=== PATIENT | male | born 1935 | race Caucasian/White ===

== ENCOUNTER → 2016-10-25 | Outpatient (CLI) | payer BC ==
[~2016-10-25] MED LIST: ADVIN10/60 INH; AMLO-110 PO; ASPCH81X PO; ATEN50TA8 PO; ATOR-26 PO; B-CO1CAP3 PO; CHOL1000 PO; CILO100T PO; CINN1CAP2 PO; COEN1CAP7 PO; CYAN10005 PO; DLN100 PO; DOCU100C PO; GABA-112 PO; HYG25 PO; INSU100I2 SC; INSU1INJ23 SC; KPP/1000 PO; LEVE750T PO; LOSA1TAB38 PO; MOME6000 NAE; MULT-506 PO; NRV5 PO; NTRGSL/4 SL; OMEG10007 PO; OXYC-57 PO; PREDPOW63; RANI150C4 PO; TAMS0.4C38 PO; ZNTT/150 PO
[2016-10-25 10:39] LABS: BLOOD UREA NITROGEN 21 mg/dl (7-18)
== END | disposition home or self-care (01) ==
LOC: C.LABBC 07:28
PROVIDERS: ATTEND Psychiatry & Neurology Neurology
DX: Z00.00 Encounter for general adult medical examination without abnormal findings (principal); G40.909 Epilepsy, unspecified, not intractable, without status epilepticus; Z51.81 Encounter for therapeutic drug level monitoring

== ENCOUNTER → 2016-10-30 | Outpatient (CLI) | payer BC ==
[~2016-10-30] MED LIST changes: +GADAVIST IV PRN
--- NOTE | 2016-10-30 09:09 | DIAGNOSTIC IMAGING REPORT ---
Brain MRI WITH AND WITHOUT CONTRAST HISTORY: HX RESECTION OF MENINGIOMA TECHNIQUE: Multiplanar multisequence MRI of the brain was performed both before and after the intravenous administration of contrast. COMPARISON STUDY: Brain MRI 05/20/2016. FINDINGS: There are no areas of restricted diffusion to suggest acute infarction. The midline structures are intact. No hematoma or midline shift. Right frontal parietal craniotomy with underlying encephalomalacia and increased T2 signal is not significantly changed. The T2 signal favors clearance is from the postoperative change. 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 No change in the 15 x 4 mm enhancing extra-axial focus within the dura of the right frontal lobe. Apparent slight increase in size measured on this study is due to differences in measuring technique. There is also stable 7 mm extra-axial enhancing focus within the right high convexity on coronal image 8 located at the craniotomy defect. This could be due to postoperative change or a small residual enhancing lesion. Near-complete opacification of the paranasal sinuses with polypoid mucosal thickening and small fluid levels. The mastoid air cells are clear. The major vascular flow-voids at the skull base are well-maintained. IMPRESSION: 1. Overall, no significant change compared to the prior study. 2. Stable nodular foci of enhancement within the right frontal dura as described above. Again, this could represent postoperative change versus small residual meningiomas. Continued follow-up recommended. 3. Pansinusitis, unchanged. Electronically signed by: Tyrone White M.D. 10/30/2016 9:07 AM Dictated Date/Time: 10/30/2016 8:47 AM
== END | disposition home or self-care (01) ==
LOC: C.MRIBC 07:47
PROVIDERS: ATTEND Psychiatry & Neurology Neurology
DX: D32.9 Benign neoplasm of meninges, unspecified (principal); Z98.890 Other specified postprocedural states; J32.4 Chronic pansinusitis

== ENCOUNTER → 2016-11-05 | Outpatient (CLI) | payer BC ==
[~2016-11-05] MED LIST changes: -GADAVIST IV PRN
--- NOTE | 2016-11-05 14:59 | DIAGNOSTIC IMAGING REPORT ---
Venous Doppler right leg RIGHT VENOUS DOPP LOWER EXT UNILAT CLINICAL HISTORY: M79.604 Right leg [id number] Right pain. Edema. TECHNIQUE: Venous Doppler COMPARISON STUDY: None FINDINGS: Normal study IMPRESSION: Normal study Electronically signed by: Doroteo Iqbal M.D. 11/05/2016 2:58 PM Dictated Date/Time: 11/05/2016 2:57 PM
== END | disposition home or self-care (01) ==
LOC: C.ULTRBC 14:22
PROVIDERS: ATTEND Physician Assistant
DX: M79.604 Pain in right leg (principal)

== ENCOUNTER → 2016-12-05 | Outpatient (CLI) | payer BC ==
[~2016-12-05] MED LIST changes: -CILO100T PO; -KPP/1000 PO; -MULT-506 PO; +OPTIRAY 320 IV PRN; -RANI150C4 PO
--- NOTE | 2016-12-05 14:37 | DIAGNOSTIC IMAGING REPORT ---
[facility]IO AA [facility] CLINICAL HISTORY: 81 years of age, Male, Claudication of lower extremity Peripheral artery disease. TECHNIQUE: Multidetector CT of the abdomen and pelvis and bilateral lower extremities was performed after the administration of intravenous contrast. 3-D volumetric and maximum intensity projection (MIP) images were subsequently reconstructed for review. IV contrast: 91 mL of Optiray 320. COMPARISON: None. CT DOSE: The estimated cumulative dose (DLP [mGy-cm]) is 1082.26 mGy.cm. FINDINGS: Christmas [employer] Grader topogram: Brachytherapy seeds noted in the prostate. Lung bases: Dependent groundglass opacities, possibly atelectasis. Normal heart size. No pericardial or pleural effusion. Abdomen and pelvis: Liver: Normal morphology. Conventional hepatic arterial anatomy. Biliary: Mild extrahepatic biliary ductal prominence within normal range for the patient's age. Normal gallbladder. Spleen: Normal. Pancreas: Normal. Adrenal glands: Nodular thickening of the bilateral adrenal glands. Kidneys and ureters: Exophytic cyst in the left kidney, likely simple. No hydronephrosis. Gastrointestinal tract: Diverticulosis of the sigmoid colon. Normal appendix. No bowel obstruction. Peritoneal cavity: No free fluid or intraperitoneal gas. Bladder: Normal. Pelvic organs: Radiotherapy seeds noted throughout the prostate. Vasculature: Severe atherosclerosis of the normal caliber abdominal aorta. Patent origins of the celiac and superior mesenteric arteries. Origin of the right renal artery demonstrates significant stenosis secondary to calcified and noncalcified atherosclerotic plaque. Nonsignificant stenosis of the origin of the left renal artery. Atherosclerosis of the iliac arteries to a greater degree on the right. Focal narrowing of the right common femoral artery with a minimal diameter of 4 mm in comparison to the normal distal diameter of 8 mm. Lymph nodes: No enlarged lymph nodes in the abdomen or pelvis. Abdominal wall: Normal. Musculoskeletal: Multiple degenerative change of the thoracolumbar spine. Bilateral lower extremities: Right: Right superficial femoral artery demonstrates multifocal areas of stenosis secondary to calcified and noncalcified atherosclerotic plaque narrowing the lumen by at most 50%. Right profunda femoris and popliteal arteries remain patent. Poor opacification of the right posterior tibial artery in the mid to distal calf, although more distal opacification of the vessel is apparent. Dorsalis pedis and common and lateral plantar arteries patent. Left: Distal left superficial femoral artery demonstrates calcified and noncalcified atherosclerotic plaque as does the popliteal artery. The most severe point of stenosis is at the level of the abductor hiatus, with a minimum luminal diameter of 3 mm in comparison to normal distal diameter of 5 mm. Anterior and posterior tibial arteries as well as the peroneal artery are patent. Poor opacification of the left dorsalis pedis. Proximal aspects of the common and lateral plantar arteries patent. IMPRESSION: 1. Severe atherosclerotic disease throughout the visualized arterial system, notably involving the origin of the right renal artery. No acute vessel occlusion. 50% narrowing of the right common femoral artery with additional multifocal sites of atherosclerotic disease in the right lower extremity as described above. Left lower extremity with focal stenosis at the abductor hiatus and poor opacification of the left dorsalis pedis. Electronically signed by: Cristobal Patino 12/05/2016 2:36 PM Dictated Date/Time: 12/05/2016 2:00 PM
== END | disposition home or self-care (01) ==
LOC: C.CTS 13:09
PROVIDERS: ATTEND Physician Assistant
DX: I73.9 Peripheral vascular disease, unspecified (principal); I77.9 Disorder of arteries and arterioles, unspecified; I70.91 Generalized atherosclerosis

== ENCOUNTER → 2016-12-23 | Outpatient (CLI) | payer BC ==
[~2016-12-23] MED LIST changes: -OPTIRAY 320 IV PRN
--- NOTE | 2016-12-23 12:48 | DIAGNOSTIC IMAGING REPORT ---
SINUSES WITH BRAIN LAB HISTORY: 81 years-old Male SINUSITIS COMPARISON: Brain MRI 10/30/2016 TECHNIQUE: Multiple axial CT images of the paranasal sinuses were obtained without IV contrast. A dose lowering technique was used consistent with the principals of MONICA. FINDINGS: There are post surgical changes of the right frontal calvarium, only partially imaged. Focus of polypoid mucosal thickening of the central right frontal sinus is again seen, 1.1 x 2.1 x 2.4 cm in AP, transverse and craniocaudal dimensions. This appears similar from comparison MRI of the brain 10/30/2016. Bubbly secretions are present in the bilateral frontal sinuses with air-fluid leveling. There is overall moderate to severe disease within the frontal sinuses. The right maxillary sinus is nearly completely opacified with mucoperiosteal thickening. There is evidence of prior maxillary antrectomy bilaterally. Moderate mucosal thickening is seen throughout the left maxillary sinus with mucoperiosteal thickening. There is moderate to severe ethmoid mucosal disease with severe right and moderate left sphenoid sinus disease. There is patency with mucosal thickening of the bilateral sphenoethmoidal recesses. The left frontoethmoidal recess is patent with mucosal thickening and the right frontal ethmoidal recess is opacified. Left maxillary ostiomeatal unit is patent. There is mucosal thickening with patency of the right maxillary ostiomeatal unit. The nasopharynx appears patent. Mastoid air cells and middle ear cavities are clear. There are degenerative changes of the imaged upper cervical spine. No facial bone fracture or dislocation is identified. Soft tissues are unremarkable. Evidence of prior bilateral cataract repair. There is a large area of encephalomalacia within the right frontal lobe. There is moderate to severe background atrophy. IMPRESSION: 1. Severe paranasal sinus disease as above with evidence of prior bilateral maxillary antrectomy. 2. Polypoid mucosal thickening in the right frontal sinus measuring up to 2.4 cm in seen, unchanged from MRI dated 10/30/2016. 3. 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 The above report was generated using voice recognition software. It may contain grammatical, syntax or spelling errors. Electronically signed by: Noel Lucas M.D. 12/23/2016 12:46 PM Dictated Date/Time: 12/23/2016 12:39 PM
== END | disposition home or self-care (01) ==
LOC: C.CTS 09:26
PROVIDERS: ATTEND Otolaryngology
DX: J32.9 Chronic sinusitis, unspecified (principal)

== ENCOUNTER → 2016-12-27 | Day surgery (SDC) | payer BC ==
--- NOTE | 2016-12-23 10:54 | PAT Medication Instructions ---
Service Date Dec 23, 2016. Current Home Medication List Amlodipine (Norvasc), 5 MG PO BID Aspirin (Aspirin Chewable), 81 MG PO QAM Atenolol (Tenormin), 50 MG PO QAM Atorvastatin (Lipitor), 80 MG PO HS Chlorthalidone (Chlorthalidone), 1 TAB PO QAM Cholecalciferol (Vitamin D3), 2,000 INTER.UNIT PO QDL Cinnamon (Cinnamon), 1,000 MG PO HS Coenzyme Q10 (Ubidecarenone) (Coq10), 1 TAB PO late afternoon Cyanocobalamin (Vitamin B-12), 1,000 MCG PO QAM Docusate Sodium (Stool Softener), 1 TAB PO HS Fish Oil ([place]-3), 1 CAP PO HS Fluticasone Prop/Salmeterol (Advair Diskus 100/50 60 Dose), 1 PUFF INH BID Gabapentin (Neurontin), 100 MG PO HS Insulin Isophane (Human) (Humulin N Kwikpen), 10-14 UNITS SC HS Insulin Lispro (Human) (Humalog Kwikpen), 3-5 UNITS SC AC Levetiracetam (Keppra), 750 MG PO BID Losartan Potassium (Cozaar), 100 MG PO QAM Mometasone Furoate (Nasal) (Mometasone Furoate), 2 SPRAY ANKITA DAILY Nitroglycerin (Nitrostat), 1 TAB SL UD Phenytoin Sodium (Dilantin), 100 MG PO BID Ranitidine (Zantac), Unknown Dose PO PRN PRN for HEARTBURN [Prednisone], Unknown Dose Medication Instructions For Your Scheduled Surgery [Prednisone], Unknown Dose (to be completed 12/24/16) - Check with surgeon/marble finisher for instructions: Aspirin (Aspirin Chewable), 81 MG PO QAM - Hold the following medications starting 12/23/16: Cinnamon (Cinnamon), 1,000 MG PO HS Coenzyme Q10 (Ubidecarenone) (Coq10), 1 TAB PO late afternoon Fish Oil ([place]-3), 1 CAP PO HS - Hold the following medications the morning of surgery: Ranitidine (Zantac), Unknown Dose PO PRN PRN for HEARTBURN Losartan Potassium (Cozaar), 100 MG PO QAM Insulin Lispro (Human) (Humalog Kwikpen), 3-5 UNITS SC AC Cyanocobalamin (Vitamin B-12), 1,000 MCG PO QAM Cholecalciferol (Vitamin D3), 2,000 INTER.UNIT PO QDL Chlorthalidone (Chlorthalidone), 1 TAB PO QAM - Take the following medications the morning of surgery with a sip of water: Phenytoin Sodium (Dilantin), 100 MG PO BID Mometasone Furoate (Nasal) (Mometasone Furoate), 2 SPRAY ANKITA DAILY Nitroglycerin (Nitrostat), 1 TAB SL UD Atenolol (Tenormin), 50 MG PO QAM Levetiracetam (Keppra), 750 MG PO BID Fluticasone Prop/Salmeterol (Advair Diskus 100/50 60 Dose), 1 PUFF INH BID Amlodipine (Norvasc), 5 MG PO BID - Take the following medications as scheduled the night before surgery: Ranitidine (Zantac), Unknown Dose PO PRN PRN for HEARTBURN Phenytoin Sodium (Dilantin), 100 MG PO BID Mometasone Furoate (Nasal) (Mometasone Furoate), 2 SPRAY ANKITA DAILY Nitroglycerin (Nitrostat), 1 TAB SL UD Levetiracetam (Keppra), 750 MG PO BID Insulin Lispro (Human) (Humalog Kwikpen), 3-5 UNITS SC AC Insulin Isophane (Human) (Humulin N Kwikpen), 10-14 UNITS SC HS Fluticasone Prop/Salmeterol (Advair Diskus 100/50 60 Dose), 1 PUFF INH BID Gabapentin (Neurontin), 100 MG PO HS Docusate Sodium (Stool Softener), 1 TAB PO HS Atorvastatin (Lipitor), 80 MG PO HS Amlodipine (Norvasc), 5 MG PO BID If you have any questions please call us at [phone] or [phone] or [phone]
--- NOTE | 2016-12-23 11:40 | DIAGNOSTIC IMAGING REPORT ---
CHEST PREADMISSION(PA/LAT) CLINICAL HISTORY: 81 years-old Male presenting with PREOP. TECHNIQUE: PA and lateral views of the chest were obtained. COMPARISON: 02/28/2016. FINDINGS: Atherosclerosis of the aortic arch. Cardiac silhouette normal. Interval development of bandlike opacities at the lung bases, right greater than left. No pleural effusion or pneumothorax. Osseous structures and upper abdomen normal. IMPRESSION: 1. Bibasilar bandlike opacities likely atelectasis. Electronically signed by: Cristobal Patino M.D. 12/23/2016 11:38 AM Dictated Date/Time: 12/23/2016 11:37 AM
[2016-12-23 11:57] LABS: BASO % 0.3 %; BASO ABS # 0.03 K/uL (0-0.2); COMPLETE YES; EOS % 0.9 %; HEMATOCRIT 44.3 % (42-52); IG% 0.7 %; LYMPH % 11.3 %; LYMPH ABS # 1.15 K/uL (1.2-3.4); MEAN CELL VOLUME 94.1 fL (80-100); MEAN CORPUSCULAR HEMOGLOBIN 33.1 pg (25-34); MEAN CORPUSCULAR HGB CONC 35.2 g/dl (32-36); MEAN PLATELET VOLUME 11.4 fL (7.4-10.4); MONO % 10.8 %; PLATELET COUNT 231 K/uL (130-400); RED BLOOD COUNT 4.71 M/uL (4.7-6.1); WHITE BLOOD COUNT 10.19 K/uL (4.8-10.8)
[2016-12-23 13:34] LABS: BLOOD UREA NITROGEN 22 mg/dl (7-18); BUN/CREATININE RATIO 18.7 (10-20); CALCIUM 9.3 mg/dl (8.5-10.1); CARBON DIOXIDE 31 mmol/L (21-32); CHLORIDE 100 mmol/L (98-107); GLUCOSE 80 mg/dl (70-99); POTASSIUM 3.9 mmol/L (3.5-5.1); SODIUM 138 mmol/L (136-145)
[2016-12-26 12:30] VITALS: BMI 26.0
--- NOTE | 2016-12-26 14:47 | History and Physical ---
History & Physical Date Dec 26, 2016. Chief Complaint Sinusitis and polyposis History of Present Illness The patient is a 81 year old male with complaints of chronic sinusitis and nasal polyposis status post surgery at [facility] developed recurrent polyps Past Medical/Surgical History Medical Problems: (1) Bronchitis (2) CAD (coronary artery disease) (3) Diabetes (4) Hyperlipidemia (5) Left arm pain (6) Meningioma (7) Prostate cancer (8) Seizure Surgical Problems: (1) H/O brain surgery (2) H/O hernia repair (3) H/O sinus surgery (4) History of prostate surgery Additional History Hepatic Disease: No Endocrine Disorder: Yes Kidney Disease: No Hypertension: Yes Heart Disease: Yes Bleeding Tendencies: No Infectious Diseases: No Allergies Coded Allergies: Levofloxacin (Verified Allergy, Intermediate, OTHER, 12/26/16) PT HAD DIFFICULTY WITH TENDONS, AMBULATORY DYSFUNCTION. Lisinopril (Verified Adverse Reaction, Intermediate, UPSET STOMACH AND DIZZINESS, 12/26/16) Home Medications Scheduled Amlodipine (Norvasc), 5 MG PO BID Aspirin (Aspirin Chewable), 81 MG PO QAM Atenolol (Tenormin), 50 MG PO QAM Atorvastatin (Lipitor), 80 MG PO HS Chlorthalidone (Chlorthalidone), 1 TAB PO QAM Cholecalciferol (Vitamin D3), 2,000 INTER.UNIT PO QDL Cinnamon (Cinnamon), 1,000 MG PO HS Coenzyme Q10 (Ubidecarenone) (Coq10), 1 TAB PO late afternoon Cyanocobalamin (Vitamin B-12), 1,000 MCG PO QAM Docusate Sodium (Stool Softener), 1 TAB PO HS Fish Oil ([place]-3), 1 CAP PO HS Fluticasone Prop/Salmeterol (Advair Diskus 100/50 60 Dose), 1 PUFF INH BID Gabapentin (Neurontin), 100 MG PO HS Insulin Isophane (Human) (Humulin N Kwikpen), 10-14 UNITS SC HS Insulin Lispro (Human) (Humalog Kwikpen), 3-5 UNITS SC AC Levetiracetam (Keppra), 750 MG PO BID Losartan Potassium (Cozaar), 100 MG PO QAM Mometasone Furoate (Nasal) (Mometasone Furoate), 2 SPRAY ANKITA DAILY Nitroglycerin (Nitrostat), 1 TAB SL UD Phenytoin Sodium (Dilantin), 100 MG PO BID Scheduled PRN Ranitidine (Zantac), Unknown Dose PO PRN PRN for HEARTBURN Miscellaneous Medications [Prednisone], Unknown Dose Physical Examination Skin: warm/dry, no rash Eyes: normal inspection, EOMI, sclerae normal ENT: normal ENT inspection, pharynx normal Head: normocephalic, atraumatic Neck: supple, no adenopathy, trachea midline Respiratory/Chest: lungs clear, normal breath sounds, no respiratory distress Cardiovascular: regular rate, rhythm, no edema, no murmur Abdomen / GI: normal bowel sounds, non tender Back: normal inspection Extremities: normal inspection, normal range of motion Neurologic/Psych: no motor/sensory deficits, alert, normal reflexes, oriented x 3 Diagnosis Chronic sinusitis and polyposis Plan of Treatment Endoscopic sinus surgery
[~2016-12-27] VITALS: Ht 170.2 cm; Wt 75.7 kg
[~2016-12-27] MED LIST changes: +ATROPINE SULFATE 0.1 MG/ML 5ML SYR IV PRN; -B-CO1CAP3 PO; +BACITRACIN OINT 15 GM TUBE ONE; +CEFAZOLIN 2000 MG/60 ML D5W IV SCH; +CISATRACURIUM BESYLATE IV SOLN 2 MG/ML 10 ML VIAL ONE; +EpHEDrine SULFATE 50MG/5ML SYR ONE; +EpHEDrine SULFATE INJ 50 MG/ML AMP IV PRN; +EpINEphrine INJ 1MG/ML AMP 1 MG/ML AMP ONE; +FENTANYL CITRATE INJ 50 MCG/1 ML 2 ML VIAL IV PRN; +FENTANYL CITRATE INJ 50 MCG/1 ML 2 ML VIAL ONE; +FLUMAZENIL 0.1 MG/1 ML 10 ML VIAL IV PRN; +GELATIN SPONGE 12-7MM ONE; +GLYCOPYRROLATE INJ 0.2 MG/ML VIAL ONE; +HYDROmorphone INJ 2 MG/ML SYR/VIAL ONE; +KETAMINE HCL INJ 50 MG/ML 10 ML VIAL ONE; +LABETALOL HCL IV 5 MG/ML 20ML IV PRN; +LACTATED RINGER'S 1000ML 1,000 ML IV SCH; +LARYING-O-JET KIT (LTA) ONE; +LIDO 2%/EPINEPHRINE 1:100000 20 ML VIAL INFIL ONE; +LIDOCAINE 4% INH SOLN 4 ML BTL ONE; +LIDOCAINE HCL 2% 2 ML VIAL (20MG/ML) ONE; +NALOXONE HCL 0.4 MG/1 ML VIAL/CARP IV PRN; +NEOSTIGMINE METHYLSULFATE 5 MG/5 ML SYR ONE; -NRV5 PO; +ONDANSETRON INJ 2 MG/ML 2 ML VIAL IV PRN; +OXYCODONE/ACETAMINOPHEN 5-325 TAB PO PRN; +PHENYLEPHRINE 100MCG/ML 5ML SYR ONE; +PROMETHAZINE HCL INJ 12.5 MG in SODIUM CHLORIDE 0.9% 50ML 50 ML IV PRN; +PROPOFOL IV EMULSION 10 MG/ML 20 ML VIAL IV ONE; +SODIUM CHLORIDE 0.9% 1000ML 1,000 ML IV SCH; +SODIUM CHLORIDE 0.9% INJ 10 ML VIAL ONE; -TAMS0.4C38 PO; +TRIAMCINOLONE ACET 40 MG/ML VIAL ONE
[2016-12-27 07:29] VITALS: BP 170/80; PULSE 65; TEMP 36.4; Ht 170.2 cm; Wt 75.7 kg
[2016-12-27 07:35] VITALS: O2SAT 95
--- NOTE | 2016-12-27 08:10 | History & Physical Bridge Note ---
H&P Re-Evaluation Bridge Note: I have examined the patient, reviewed the History & Physical and in the interval since the performance of the History & Physical I have noted the following changes of clinical significance: No changes noted
--- NOTE | 2016-12-27 09:36 | [facility] Operative Report ---
Operative Report Operative Date Dec 27, 2016. Pre-Operative Diagnosis Chronic sinusitis and polyposis Post-Operative Diagnosis Chronic sinusitis and polyposis Procedure(s) Performed Bilateral Endoscopic Sinus Surgery Surgeon Dr. 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 endotracheal Complication(s) None Disposition Recovery Room / PACU Indications 81-year-old gentleman with recurrent and chronic sinusitis with significant polyposis with history of 4 previous sinus procedures at [facility] Description of Procedure The patient was brought to the operating room and placed in the supine position. He was prepped with Betadine paint and draped in the usual sterile manner. The brain lab device was calibrated and used for the entire procedure. The nose was decongested using cottonoids with a solution of 4 mL of 4% Xylocaine with 1 mL of epinephrine. Injection of 2% Xylocaine with 1 100,000 strength epinephrine was also used. The left nasal frontal duct was cannulated with the guidewire with [employer] computer guidance and dilated using the 6 mm balloon. The guidewire was left in place as a marker as catheter was withdrawn. Frontal sinusotomy was performed by using the shaver couple with the BrainLab device and polypoid mucosa and adhesions blocking the left nasal frontal duct. Polyps filled the anterior and posterior ethmoid cavities these were all removed using the shaver couple with the BrainLab device. The skull base and lamina papyracea were delineated and all the polyps were removed. The sphenoid ostia was from the sphenoidotomy opening this had to be connected using the shaver. The left maxillary sinus had a missed ostia syndrome. The natural ostia was found using the seeker and then connected to the antrostomy opening using the seeker to break the adhesion and then shaving up the scar tissue and mucosa between the natural ostia and the antrostomy opening. The right frontal sinusotomy sphenoidotomy maxillary sinus antrostomy and total ethmoidectomy were performed in a similar manner. Propel stents were placed with 2 mini stent in the nasal frontal ducts and to regular stents in the ethmoid cavity. The patient tolerated procedure well was taken recovery area in satisfactory condition I attest to the content of the Intraoperative Record and any orders documented therein. Any exceptions are noted below.
--- NOTE | 2016-12-27 09:38 | Discharge Instructions-SurgCtr ---
Discharge Instructions Date of Service Dec 27, 2016. Visit Reason for Visit: Chronic Sinusitis Discharge Discharge Diagnosis / Problem: same Discharge Goals Goal(s): Improve disease control Activity Recommendations Activity Limitations: resume your previous activity Anesthesia . Post Anesthesia Instructions: If you have had General Anesthesia or IV Sedation: * Do not drive today. * Resume driving when surgeon permits. * Do not make important decisions or sign legal documents today. * Call surgeon for: 1. Temperature elevations greater than 101 degrees F. 2. Uncontrollable pain. 3. Excessive bleeding. 4. Persistent nausea and vomiting. 5. Medication intolerance (nausea, vomiting or rash). * For nausea and vomiting use only clear liquids such as: tea, soda, bouillon until nausea subsides, then gradually increase diet as tolerated. * If you have any concerns or questions, call your surgeon's office. If physician is unavailable and it is an emergency, call 911 or go to the nearest emergency room. . Instructions / Follow-Up Instructions / Follow-Up ACTIVITY RECOMMENDATIONS: * Being up and around is good, but no strenuous activity, heavy lifting or physical exertion for one week. * Keep your head elevated 30 degrees when lying down or sleeping. * Do not blow your nose for 48 hours, sniff back instead. * Avoid hot showers. OVER THE COUNTER MEDICATIONS: * You may use Tylenol * Avoid aspirin or aspirin containing products, e.g. as they may increase bleeding. SPECIAL CARE INSTRUCTIONS: * Expect to have bloody drainage from your nose and/or down your throat for one to three days. Change drip pad as needed. * Begin irrigating your nose with saline solution today, at least six to ten times per day and sniff back to help remove old clots or crust. * You may experience nasal and facial congestion, pain and pressure, this is normal. * Please call with any significant and/or progressive pain, redness, swelling around the eyes, visual changes, fever of 101.5 degrees F, active bleeding or any problems or concerns. * If active bleeding occurs, spray the nose three times at one minute intervals with Afrin spray and call or cell phone: . If unable to reach the doctor, go to the nearest Emergency Department. Special Diet: * Avoid extremely hot fluids. FOLLOW UP VISIT: Follow-up Visit with Dr. Couch If not already scheduled, please call to schedule. Diet Recommendations Home Diet: no limitations Procedures Procedures Performed: Bilateral Endoscopic Sinus Surgery Pending Studies Studies pending at discharge: no Medical Emergencies . Who to Call and When: Medical Emergencies: If at any time you feel your situation is an emergency, please call 911 immediately. . Non-Emergent Contact Non-Emergency issues call your: Primary Care Provider . . "Provider Documentation" section prepared by Sury Desir PA Drug Monitoring Program Search Results: no issues identified
--- NOTE | 2016-12-27 10:14 | Anesthesiology Progress Note ---
Anesthesia Post Op Note Date & Time Dec 27, 2016 at 10:14 Vital Signs Pain Intensity: 0 Vital Signs Past 12 Hours Date Time Temp Pulse Resp B/P (MAP) Pulse Ox O2 Delivery O2 Flow Rate FiO2 12/27/16 09:54 58 15 12/27/16 09:54 59 15 99 12/27/16 09:51 156/75 12/27/16 09:49 59 18 100 12/27/16 09:49 60 18 12/27/16 09:46 148/79 12/27/16 09:44 62 18 12/27/16 09:44 62 18 100 12/27/16 09:41 166/67 12/27/16 09:40 162/95 12/27/16 09:39 70 99 12/27/16 09:39 36.5 69 16 162/95 100 Mask 10 12/27/16 09:39 70 12/27/16 07:35 95 Room Air 12/27/16 07:29 36.4 65 18 170/80 Notes Mental Status: alert / awake / arousable, participated in evaluation Pt Amnestic to Procedure: Yes Nausea / Vomiting: adequately controlled Pain: adequately controlled Airway Patency, RR, SpO2: stable & adequate BP & HR: stable & adequate Hydration State: stable & adequate Anesthetic Complications: no major complications apparent
[2016-12-27 10:43] VITALS: BP 150/63; PULSE 64; TEMP 36.6; O2SAT 96
[2016-12-27 10:55] VITALS: BP 131/62; PULSE 63; TEMP 36.7; O2SAT 93
[2016-12-27 11:25] VITALS: BP 135/68; PULSE 62; TEMP 36.9; O2SAT 93
== END | disposition home or self-care (01) ==
LOC: C.ACU 06:49
PROVIDERS: ATTEND Otolaryngology
DX: J32.9 Chronic sinusitis, unspecified (principal); J33.8 Other polyp of sinus; I25.10 Atherosclerotic heart disease of native coronary artery without angina pectoris; E78.5 Hyperlipidemia, unspecified; E11.9 Type 2 diabetes mellitus without complications; Z79.82 Long term (current) use of aspirin; Z79.4 Long term (current) use of insulin; Z79.899 Other long term (current) drug therapy

== ENCOUNTER → 2017-01-13 | Outpatient (CLI) | payer BC ==
[~2017-01-13] MED LIST changes: -ATROPINE SULFATE 0.1 MG/ML 5ML SYR IV PRN; -BACITRACIN OINT 15 GM TUBE ONE; -CEFAZOLIN 2000 MG/60 ML D5W IV SCH; -CISATRACURIUM BESYLATE IV SOLN 2 MG/ML 10 ML VIAL ONE; -EpHEDrine SULFATE 50MG/5ML SYR ONE; -EpHEDrine SULFATE INJ 50 MG/ML AMP IV PRN; -EpINEphrine INJ 1MG/ML AMP 1 MG/ML AMP ONE; -FENTANYL CITRATE INJ 50 MCG/1 ML 2 ML VIAL IV PRN; -FENTANYL CITRATE INJ 50 MCG/1 ML 2 ML VIAL ONE; -FLUMAZENIL 0.1 MG/1 ML 10 ML VIAL IV PRN; -GELATIN SPONGE 12-7MM ONE; -GLYCOPYRROLATE INJ 0.2 MG/ML VIAL ONE; -HYDROmorphone INJ 2 MG/ML SYR/VIAL ONE; -KETAMINE HCL INJ 50 MG/ML 10 ML VIAL ONE; -LABETALOL HCL IV 5 MG/ML 20ML IV PRN; -LACTATED RINGER'S 1000ML 1,000 ML IV SCH; -LARYING-O-JET KIT (LTA) ONE; -LIDO 2%/EPINEPHRINE 1:100000 20 ML VIAL INFIL ONE; -LIDOCAINE 4% INH SOLN 4 ML BTL ONE; -LIDOCAINE HCL 2% 2 ML VIAL (20MG/ML) ONE; -NALOXONE HCL 0.4 MG/1 ML VIAL/CARP IV PRN; -NEOSTIGMINE METHYLSULFATE 5 MG/5 ML SYR ONE; -OMEG10007 PO; -ONDANSETRON INJ 2 MG/ML 2 ML VIAL IV PRN; -OXYCODONE/ACETAMINOPHEN 5-325 TAB PO PRN; -PHENYLEPHRINE 100MCG/ML 5ML SYR ONE; -PROMETHAZINE HCL INJ 12.5 MG in SODIUM CHLORIDE 0.9% 50ML 50 ML IV PRN; -PROPOFOL IV EMULSION 10 MG/ML 20 ML VIAL IV ONE; -SODIUM CHLORIDE 0.9% 1000ML 1,000 ML IV SCH; -SODIUM CHLORIDE 0.9% INJ 10 ML VIAL ONE; -TRIAMCINOLONE ACET 40 MG/ML VIAL ONE
[2017-01-13 13:59] LABS: ESTIMATED AVERAGE GLUCOSE 123 mg/dl; HA1C FLAG Normal (Normal)
== END | disposition home or self-care (01) ==
LOC: C.LABBC 11:27
PROVIDERS: ATTEND Nurse Practitioner Adult Health
DX: E11.9 Type 2 diabetes mellitus without complications (principal); Z79.4 Long term (current) use of insulin

== ENCOUNTER → 2017-06-03 | Outpatient (CLI) | payer BC ==
[~2017-06-03] MED LIST changes: -AMLO-110 PO; +AMLO5TAB3 PO; +CILO100T PO; -DLN100 PO; +KPP/1000 PO; -LEVE750T PO; +MULT-506 PO; +OMEG10007 PO; -OXYC-57 PO; -PREDPOW63; +RANI150C4 PO; -ZNTT/150 PO
[2017-06-03 10:52] LABS: HEMOGLOBIN 15.2 g/dL (14.0-18.0)
[2017-06-03 11:40] LABS: HEMOGLOBIN A1C 6.5 % (4.5-5.6)
--- NOTE | 2017-06-10 10:13 | CODING QUERY MEDICAL NECESSITY ---
CQSUPPORTING DIAGNOSIS NEEDED A supporting diagnosis is required for the test/procedure performed on this patient in order for us to be reimbursed by the patient's insurance. Please provide a supporting diagnosis for the following test/procedure listed below next to the test name along with your signature. *If there is no additional diagnosis for this patient that would support the following test/procedure please document that below next to the test/procedure. Test(s)/Procedure(s) that require a supporting diagnosis: DOS 06/03/17 PROSTATE SPECIFIC Provider Signature: Date: Thank you Nelia Ha [email or web address] Information Management Once completed, please kindly fax back to [phone] For questions please call [phone]
== END | disposition home or self-care (01) ==
LOC: C.LABBC 08:13
PROVIDERS: ATTEND Nurse Practitioner Adult Health
DX: E11.9 Type 2 diabetes mellitus without complications (principal); Z79.4 Long term (current) use of insulin; I77.9 Disorder of arteries and arterioles, unspecified; D32.9 Benign neoplasm of meninges, unspecified; K21.9 Gastro-esophageal reflux disease without esophagitis; I10 Essential (primary) hypertension; R39.9 Unspecified symptoms and signs involving the genitourinary system; E78.00 Pure hypercholesterolemia, unspecified

== ENCOUNTER → 2017-08-05 | Outpatient (CLI) | payer BC ==
[~2017-08-05] MED LIST changes: +AMLO-110 PO; -AMLO5TAB3 PO
--- NOTE | 2017-08-05 14:31 | DIAGNOSTIC IMAGING REPORT ---
CHEST 2 VIEWS ROUTINE HISTORY: 82 years-old Male J44.9 Chronic asthmatic [id number] COMPARISON: Chest radiograph 12/23/2016 TECHNIQUE: PA and lateral views of the chest FINDINGS: Cardiac silhouette is mildly enlarged, unchanged. Atherosclerosis of the aorta. Lungs are mildly hyperinflated. There is improved aeration of the right lung base with persistent linear subsegmental bibasilar opacities suggesting atelectasis. There is no pneumothorax, pleural effusion or overt pulmonary edema. No lobar airspace consolidation. Bones of the chest appear grossly intact. Multilevel degenerative changes of the spine. IMPRESSION: Hyperinflation without acute process. The above report was generated using voice recognition software. It may contain grammatical, syntax or spelling errors. Electronically signed by: Noel Lucas M.D. 08/05/2017 2:30 PM Dictated Date/Time: 08/05/2017 2:23 PM
== END | disposition home or self-care (01) ==
LOC: C.RAD1850 13:49
PROVIDERS: ATTEND Internal Medicine Pulmonary Disease
DX: J44.9 Chronic obstructive pulmonary disease, unspecified (principal); R91.8 Other nonspecific abnormal finding of lung field

== ENCOUNTER → 2017-08-15 | Outpatient (CLI) | payer BC ==
--- NOTE | 2017-08-15 10:00 | DIAGNOSTIC IMAGING REPORT ---
LUMBAR SPINE W/O CONTRAST CLINICAL HISTORY: 82 years-old Male presenting with LUMBAR RADICULAPTHY/STENOSIS,RT FOOT DROP, right leg pain and numbness. TECHNIQUE: Multisequence, multiplanar MR imaging of the lumbar spine was performed without the use of intravenous contrast. IV contrast: None. COMPARISON: CT from 12/05/2016. FINDINGS: Localizer images: Unavailable. Normal lumbar lordosis. Vertebral bodies maintain normal height and alignment. Bone marrow edema noted anteriorly at the endplates of L1-2 eccentrically on the right greater degree. Benign hemangioma also noted in the L2 vertebral body. Remainder of bone marrow signal intensity normal. Mild diffuse intervertebral disc height loss and desiccation. Disc bulges noted to varying degrees at nearly every level. Degenerative changes further detailed below: L1-2: Disc bulge results in effacement of the ventral thecal sac. Minimal bilateral neural foraminal narrowing. L2-3: Disc bulge in combination with ligamentum flavum hypertrophy results in circumferential effacement of the thecal sac with near complete effacement of CSF signal intensity. Prominent epidural fat also noted at this level. Moderate bilateral neural foraminal narrowing. Abutment of the exiting left L2 nerve root secondary to the disc bulge may be present. L3-4: Disc bulge and ligament flavum thickening results in circumferential effacement of the thecal sac and complete effacement of CSF signal intensity. Abutment on the bilateral exiting L3 nerve roots suggested. Moderate bilateral neural foraminal narrowing. L4-5: Disc bulge and ligamentum flavum thickening results in circumferential effacement of the thecal sac and complete effacement of CSF signal intensity similar to the L3-4 level. Mass effect on the exiting L4 nerve root suggested, left greater than right. Moderate right and severe left neural foraminal narrowing. L5-S1: No significant spinal canal or neural foraminal narrowing despite mild facet arthropathy. Spinal cord is in good position at the inferior endplate of L1. The cauda equina is normal in morphology apart from a slight buckled appearance secondary to multifocal spinal canal stenosis. Paraspinal soft tissues within normal limits. IMPRESSION: 1. Multilevel degenerative changes with multifocal severe spinal stenosis, most significantly at L3-4 and L4-5, as well as varying degrees of neural foraminal narrowing most severe at L4-5. Further details as above. Correlate clinically to exclude cauda equina impingement. The report will be called/faxed according to standard departmental protocol. Electronically signed by: Cristobal Patino M.D. 08/15/2017 9:59 AM Dictated Date/Time: 08/15/2017 9:51 AM
== END | disposition home or self-care (01) ==
LOC: C.MRIBC 08:48
PROVIDERS: ATTEND Physical Medicine & Rehabilitation
DX: M21.371 Foot drop, right foot (principal); M48.061 Spinal stenosis, lumbar region without neurogenic claudication; M54.16 Radiculopathy, lumbar region

== ENCOUNTER → 2017-08-26 | Outpatient (CLI) | payer BC ==
[2017-08-26 17:09] LABS: ALBUMIN 3.8 gm/dl (3.4-5.0); ALT/SGPT 38 U/L (12-78); BLOOD UREA NITROGEN 27 mg/dl (7-18); CALCIUM 9.4 mg/dl (8.5-10.1); CARBON DIOXIDE 30 mmol/L (21-32); CREATININE 1.44 mg/dl (0.60-1.40); GLUCOSE 84 mg/dl (70-99); SODIUM 132 mmol/L (136-145)
[2017-08-26 17:12] LABS: ALKALINE PHOSPHATASE 56 U/L (45-117); AST/SGOT 30 U/L (15-37); TOTAL PROTEIN 7.1 gm/dl (6.4-8.2)
== END | disposition home or self-care (01) ==
LOC: C.LABBC 14:49
PROVIDERS: ATTEND Nurse Practitioner Adult Health
DX: I10 Essential (primary) hypertension (principal); E78.00 Pure hypercholesterolemia, unspecified

== ENCOUNTER → 2017-10-08 | Day surgery (SDC) | payer BC ==
[2017-09-29 11:48] VITALS: Ht 170.2 cm; Wt 77.3 kg
[~2017-10-08] VITALS: Ht 170.2 cm; Wt 77.3 kg
[~2017-10-08] MED LIST changes: -CILO100T PO; -HYG25 PO; +IOPAMIDOL INJ 61% 15 ML VIAL ONE; +LIDOCAINE HCL 1% MPF 5 ML VIAL INJ ONE; +LIDOCAINE HCL 1% MPF 5 ML VIAL ONE; +SODIUM CHLORIDE 0.9% INJ 10 ML VIAL ONE
--- NOTE | 2017-10-08 15:29 | [facility] Post Operative Brief Note ---
Immediate Operative Summary Operative Date October 08, 2017. Pre-Operative Diagnosis LUMBAR SPINAL STENOSIS WITH RIGHT LOWER EXTREMITY RADICULOPATHY Post-Operative Diagnosis LUMBAR SPINAL STENOSIS WITH RIGHT LOWER EXTREMITY RADICULOPATHY Procedure(s) Performed LUMBAR EPIDURAL STEROID INJECTION Surgeon DR. Bimla DIMAS Rice Farmer Surgeon(s) NONE Estimated Blood Loss 0 Findings Consistent with Post-Op Diagnosis Specimens NA Drains None Anesthesia Type Local Complication(s) none Disposition Disposition:
[2017-10-08 15:30] VITALS: TEMP 36.8
--- NOTE | 2017-10-08 15:30 | Discharge Instructions ---
Discharge Instructions Date of Service October 08, 2017. Visit Reason for Visit: Lumbar Radiculopathy, Lumbar Spinal Stenosis Discharge Discharge Diagnosis / Problem: right leg pain Discharge Goals Goal(s): Decrease discomfort, Improve function Medications Stopped Medications Name(s): stopped kevin gallegos 10/04/2017 Activity Recommendations Activity Limitations: resume your previous activity Anesthesia . Post Anesthesia Instructions: If you have had General Anesthesia or IV Sedation: * Do not drive today. * Resume driving when surgeon permits. * Do not make important decisions or sign legal documents today. * Call surgeon for: 1. Temperature elevations greater than 101 degrees F. 2. Uncontrollable pain. 3. Excessive bleeding. 4. Persistent nausea and vomiting. 5. Medication intolerance (nausea, vomiting or rash). * For nausea and vomiting use only clear liquids such as: tea, soda, bouillon until nausea subsides, then gradually increase diet as tolerated. * If you have any concerns or questions, call your surgeon's office. If physician is unavailable and it is an emergency, call 911 or go to the nearest emergency room. . Diet Recommendations Recommended Home Diet: resume previous diet Procedures Procedures Performed: LUMBAR EPIDURAL STEROID INJECTION Pending Studies Studies pending at discharge: no Medical Emergencies . Who to Call and When: Medical Emergencies: If at any time you feel your situation is an emergency, please call 911 immediately. . Non-Emergent Contact Non-Emergency issues call your: Specialist . . "Provider Documentation" section prepared by Yordan Stewart. .
[2017-10-08 15:48] VITALS: BP 167/69; PULSE 55; O2SAT 94
--- NOTE | 2017-10-08 22:24 | OPERATIVE REPORT ---
DATE OF OPERATION: 10/08/2017 PREOPERATIVE DIAGNOSIS: Lumbar spinal stenosis with right lower extremity radiculopathy. POSTOPERATIVE DIAGNOSIS: Same. PROCEDURE: Right paramedian L5-S1 interlaminar epidural steroid injection under fluoroscopic guidance. INDICATIONS: The patient is an 82-year-old male who has classic right S1 radiculopathy who presents today for an epidural steroid injection to provide her with relief. His MRI shows significant multifactorial stenosis at L3-L4 and L4-L5. PHYSICAL EXAMINATION: Pleasant male, seated comfortably, in no apparent distress. He has normal lower extremity strength. Negative seated straight leg raises. CONSENT: Verbal and written consent obtained from the patient. Risks and benefits reviewed. Risks include but are not limited to epidural abscess, epidural hematoma, allergic reaction, dural puncture. The patient wishes to proceed. DESCRIPTION OF PROCEDURE: The patient was taken back to the special procedures room of the [facility] where he was maintained in a prone position. Backside was cleansed with Betadine x3, and a dry sterile dressing was applied. Fluoroscope was used to identify the L4-L5 interlaminar space, which was incredibly tight on the right side. Overlying skin was anesthetized with 4 mL of lidocaine 1% with 25 gauge 1-1/2-inch needle. Despite multiple attempts, I could not enter the interlaminar space. It had to be laterally positioned to avoid the spinous process and this caused the small narrowed space, the needle tips contacted the lamina. Multiple attempts. Decision was made then to enter at the L5-S1 space and was directed in a cranial fashion. Loss of resistance was noted at a depth of 6 cm after additional anesthetization with 3 mL of lidocaine 1%. He then underwent Isovue injection of 1 mL which showed great flow throughout L4-L5 and L5-S1. He was then injected after negative aspiration of 40 mg of Depo-Medrol and 4 mL of preservative free sodium chloride. Injection was well tolerated. DISPOSITION: 1. The patient is taken out in the discharge recovery area where he will be discharged home once discharge criteria met. 2. Follow up in the [facility] office in 4 weeks time. I attest to the content of the Intraoperative Record and any orders documented therein. Any exception s are noted below.
== END | disposition home or self-care (01) ==
LOC: X.SURG 13:38
PROVIDERS: ATTEND Physical Medicine & Rehabilitation
DX: M48.061 Spinal stenosis, lumbar region without neurogenic claudication (principal); M54.16 Radiculopathy, lumbar region; Z79.82 Long term (current) use of aspirin; Z79.899 Other long term (current) drug therapy; Z79.4 Long term (current) use of insulin

== ENCOUNTER → 2017-12-22 | Outpatient (CLI) | payer BC ==
[~2017-12-22] MED LIST changes: -AMLO-110 PO; +AMLO5TAB3 PO; -IOPAMIDOL INJ 61% 15 ML VIAL ONE; -LIDOCAINE HCL 1% MPF 5 ML VIAL INJ ONE; -LIDOCAINE HCL 1% MPF 5 ML VIAL ONE; -SODIUM CHLORIDE 0.9% INJ 10 ML VIAL ONE
[2017-12-22 18:18] LABS: ALBUMIN 3.9 gm/dl (3.4-5.0); ALKALINE PHOSPHATASE 42 U/L (45-117); ALT/SGPT 38 U/L (12-78); AST/SGOT 33 U/L (15-37); BLOOD UREA NITROGEN 17 mg/dl (7-18); CALCIUM 9.1 mg/dl (8.5-10.1); CARBON DIOXIDE 27 mmol/L (21-32); CREATININE 1.18 mg/dl (0.60-1.40); GLUCOSE 98 mg/dl (70-99); POTASSIUM 4.1 mmol/L (3.5-5.1); SODIUM 141 mmol/L (136-145); TOTAL PROTEIN 6.9 gm/dl (6.4-8.2)
--- NOTE | 2018-01-04 15:20 | CODING QUERY NO DIAGNOSIS ---
TREATMENT RENDERED WITHOUT A DIAGNOSIS To promote full compliance with coding requirements relating to patient care, physician participation is requested in all cases of certification engineer uncertainty. Please assist us with providing a diagnosis/symptom for the test(s) below: A diagnosis/symptom was not documented on your Order. A valid diagnosis/symptom is required to bill all insurances. Please remember that we are unable to code a diagnosis of rule out, probable, possible, questionable, or suspected. Tests that require a diagnosis: DOS: 12/22/17 * CMP DIAGNOSIS: * HEMOGLOBIN A1C DIAGNOSIS: Provider Signature: Date: Thank you Daisy Contreras [employer] Information Management Once completed, please kindly fax back to [phone] For questions please call [phone]
== END | disposition home or self-care (01) ==
LOC: C.LABBC 12:51
PROVIDERS: ATTEND Nurse Practitioner Adult Health
DX: Z01.89 Encounter for other specified special examinations (principal)

== ENCOUNTER → 2017-12-23 | Outpatient (CLI) | payer BC | END | disposition home or self-care (01) | LOC: C.LABBC 07:50 | PROVIDERS: ATTEND Internal Medicine Cardiovascular Disease | DX: E78.00 Pure hypercholesterolemia, unspecified (principal) ==

== ENCOUNTER 2019-03-03 12:38 | Inpatient (IN) ==
[2019-03-03] MEDS ORDERED: OPTIRAY 320 125ml IV PRN (12:50)
[2019-03-03] MEDS: SODIUM CHLORIDE 0.9% 1000ML 1,000 ML IV SCH ×2 (12:59→18:23)
--- NOTE | 2019-03-03 13:05 | CT Scan Report ---
CT OF THE HEAD WITHOUT CONTRAST CLINICAL HISTORY: Stroke evaluation COMPARISON STUDY: Head CT December 28, 2013. Sinus CT December 23, 2016. TECHNIQUE: Helical axial images of the head were obtained without IV contrast. Automated exposure con trol was utilized for the study. A dose lowering technique was utilized adhering to the principles o f ALARA. FINDINGS: No acute intracranial hemorrhage, midline shift or mass effect is present. Encephalomalacia within the right frontal lobe is unchanged. A small extra-axial density on image 17 is unchanged sin ce MRI November 03, 2018 and was shown on head CT of December 28, 2013. This is unchanged. The ventricular sys tem is stable. Basilar cisterns are patent. There are no extra axial collections. 1.4 cm hypodensity within the anterior limb of the left internal capsule and basal ganglia is unchanged since sinus CT o f December 23, 2016. Right-sided craniotomy is unchanged in appearance. Small amount of left mastoid flui d is noted. IMPRESSION: 1. No acute intracranial hemorrhage. 2. No change in appearance of the brain since CT of December 23, 2016. Right frontal encephalomalacia wit h an extra-axial focus which may reflect stable recurrent tumor or postoperative change. Electronically signed by: Pierre Alexander M.D. 03/03/2019 1:04 PM
[2019-03-03 13:13] LABS: Basophils # (auto) 0.02 K/uL (0-0.2); Basophils % (auto) 0.4 %; Eosinophils # (auto) 0.25 K/uL (0-0.5); Eosinophils % (auto) 5.1 %; Hematocrit (blood only) 44.3 % (42-52); Hemoglobin 15.2 g/dL (14.0-18.0); Immature Granulocytes # (auto) 0.03 K/uL (0.00-0.02); Immature Granulocytes % (auto) 0.6 %; Lymphocytes # (auto) 1.76 K/uL (1.2-3.4); Mean Corpuscular Hemoglobin 32.4 pg (25-34); Mean Corpuscular Hgb Conc 34.3 g/dL (32-36); Mean Corpuscular Volume 94.5 fL (80-100); Mean Platelet Volume 11.7 fL (7.4-10.4); Monocytes # (auto) 0.66 K/uL (0.11-0.59); Monocytes % (auto) 13.5 %; Neutrophils # (auto) 2.17 K/uL (1.4-6.5); Neutrophils % (auto) 44.4 %; Platelet Count 170 K/uL (130-400); RDW Coefficient of Variation 13.3 % (11.5-14.5); RDW Standard Deviation 45.5 fL (36.4-46.3); Red Blood Count 4.69 M/uL (4.7-6.1); White Blood Count 4.89 K/uL (4.8-10.8)
[2019-03-03 13:24] LABS: INR 1.1 (0.9-1.1); Partial Thromboplastin Time 27.1 Seconds (21.0-31.0); Prothrombin Time 10.9 Seconds (9.0-12.0)
[2019-03-03 13:26] LABS: Alanine Aminotransferase 26 U/L (12-78); Albumin Level 3.6 gm/dl (3.4-5.0); Aspartate Aminotransferase 21 U/L (15-37); BUN Creatinine Ratio 15.1 (10-20); Blood Urea Nitrogen 17 mg/dl (7-18); Calcium 8.8 mg/dl (8.5-10.1); Carbon Dioxide 24 mmol/L (21-32); Chloride 105 mmol/L (98-107); Creatinine Clr Calc Pharmacy 49.8 ml/min; Est GFR (African American) 67.8; Est GFR (Non-African American) 58.5; Glucose 77 mg/dl (70-99); Magnesium 2.1 mg/dl (1.8-2.4); Potassium 3.9 mmol/L (3.5-5.1); Sodium 137 mmol/L (136-145)
--- NOTE | 2019-03-03 13:26 | CT Scan Report ---
HEAD CTA, NECK CTA HISTORY: weakness TECHNIQUE: Multiaxial CT images of the head were performed following the intravenous administration o f contrast to evaluate the major cerebral vessels. Multiaxial CT images of the neck were also perform ed following the intravenous administration of contrast to evaluate the major cervical vessels. Maxim um intensity projection images were also obtained. A dose lowering technique was utilized adhering to the principles of ALARA. COMPARISON: Brain MRI 11/24/2017. FINDINGS: Prior right frontal craniotomy with underlying encephalomalacia within the right frontal lobe. This r emains unchanged. An 11 mm nodular extra-axial focus of enhancement within the right frontal lobe on image 167. This remains stable and may represent a small amount of residual/recurrent meningioma. Mil d focal narrowing within the ophthalmic segment of the bilateral internal carotid arteries due to the calcified plaque. The distal vertebral arteries and basilar artery are widely patent. The bilateral ACAs and steward/stewardess third are widely patent. No aneurysm identified. Mild focal narrowing within the bilateral M1 segments. Multifocal high-grade stenosis versus occlusion within a 1 cm segment of the superior divi selin of the proximal right M2 segment. This is best seen on axial image 105 of 269. However, there is distal reconstitution of the vessel. The major dural venous sinuses are not well opacified but likel y patent. The aortic arch and proximal great vessels are widely patent. Calcified plaque within the bilateral carotid bulbs. This results in approximately 70-80% focal stenosis within the proximal left internal carotid artery along a 1 cm segment. There is approximately 40% focal stenosis within the proximal r ight internal carotid artery. The bilateral mid to distal internal carotid arteries, common carotid a rteries, and vertebral arteries are widely patent. No evidence for dissection. A 9 mm thyroid nodule. Multiple retention cyst within the right paranasal sinuses. Trace left mastoid effusion. A subtle 2. 5 cm groundglass density within the right upper lobe on image 95. This remains unchanged. IMPRESSION: 1. Multifocal high-grade stenosis versus occlusion within a 1 cm segment of the superior division of the proximal right M2 segment. However, there is distal reconstitution of the vessel. 2. Approximately 70-80% focal stenosis within the proximal left internal carotid artery and approxima tely 40% focal stenosis within the proximal right internal carotid artery due to the calcified plaque . 3. No change in the sagittal 2.5 cm groundglass nodule within the right upper lobe. Despite the long- term stability this should be considered a low-grade neoplasm until proven otherwise. Electronically signed by: Tyrone White M.D. 03/03/2019 1:25 PM
[2019-03-03 13:31] LABS: Albumin Globulin Ratio 1.2 (0.9-2); Alkaline Phosphatase 42 U/L (45-117); Bilirubin,Total 0.4 mg/dl (0.2-1); Globulin 3.1 gm/dl (2.5-4.0); Total Protein 6.7 gm/dl (6.4-8.2); Troponin I < 0.015 ng/ml (0-0.045)
--- NOTE | 2019-03-03 14:00 | XRay Report ---
XR chest 1V portable CLINICAL HISTORY: 83 years-old Male presenting with weakness. TECHNIQUE: Portable upright AP view of the chest was obtained. COMPARISON: 12/23/[address] from 05/18/2018. FINDINGS: Atherosclerosis of the aortic arch. Cardiac silhouette enlarged. Minimal pulmonary vascular prominenc e new from prior. Minimal basilar opacities. No pleural effusion or pneumothorax. Osseous structures normal. Upper abdomen normal. IMPRESSION: 1. Cardiomegaly with mild volume overload. No julio cesar pulmonary edema. 2. Minimal bibasilar atelectasis. Electronically signed by: Cristobal Patino M.D. 03/03/2019 1:59 PM
[2019-03-03] MEDS ORDERED: ASPIRIN CHEW 324 MG PO STA (14:10)
--- NOTE | 2019-03-03 15:36 | Emergency Department Note ---
Entered by Flex Lo acting as a scribe for Abilio Barrios DO History of Present Illness General Chief complaint: Stroke Alert Time Seen by Provider: 03/03/19 12:40 Source: family () History of Present Illness Onset (ago): hour(s) (few) Location: head Pain Consistency: + other (episode) Maximum Pain Intensity: 0 Quality: + other (stroke-like symptoms ) Associated symptoms: + other (+lucid speech; +could not get out words; +saying the wrong words; +could not remember where things were; -seizure) The patient is an 83 year old male, with past medical history of a meningeal tumor and seizures, who presents to the Emergency Room with complaints of an episode of stroke-like symptoms that occurred a few hour prior to arrival, per the patient's . The of the patient notes the patient's speech was lucid earlier. She notes the patient could not get out words, he was saying the wrong words, and he could not remember where things were. The of the patient states the patient did not experience a seizure today. The notes the patient had surgery on his brain tumor in the past, and she states the patient suffered 3 seizures in the ICU following surgery. The states this was followed with a long rehab stint due to the patient losing use of his left-side. The states the patient is on Kepra. The does report the patient's speech sounds better in the ED presently. Home Medications Home Medications Medication Instructions Recorded Confirmed Type Humulin N NPH Insulin KwikPen 10 - 14 unit SUBCUT 02/20/18 03/03/19 History amlodipine [Norvasc] 5 mg PO BID 02/20/18 03/03/19 History aspirin 81 mg PO QAM 02/20/18 03/03/19 History atenolol 50 mg PO QAM 02/20/18 03/03/19 History atorvastatin 80 mg PO HS 02/20/18 03/03/19 History cholecalciferol (vitamin D3) 2,000 unit PO DAILY 02/20/18 03/03/19 History [Vitamin D3] cinnamon bark [Cinnamon] 1,000 mg PO DAILY 02/20/18 03/03/19 History cyanocobalamin (vitamin B-12) 1,000 mcg PO QAM 02/20/18 03/03/19 History docusate sodium 100 mg PO HS 02/20/18 03/03/19 History fluticasone propion-salmeterol 1 puff INHALATION BID 02/20/18 03/03/19 History [Advair Diskus] gabapentin 100 mg PO HS 02/20/18 03/03/19 History insulin lispro [Humalog KwikPen 3 - 5 unit SUBCUT AC 02/20/18 03/03/19 History Insulin] levetiracetam [Keppra] 1,000 mg PO BID 02/20/18 03/03/19 History losartan [Cozaar] 100 mg PO QAM 02/20/18 03/03/19 History mometasone 2 spray INTRANASAL DAILY 02/20/18 03/03/19 History multivitamin 1 tab PO QAM 02/20/18 03/03/19 History nitroglycerin 1 tab SUBLINGUAL UD PRN 02/20/18 03/03/19 History omega 7-[id number]-fish oil [Fish Oil] 1 cap PO DAILY 02/20/18 03/03/19 History ranitidine HCl [Zantac] 150 mg PO HS 10/07/18 03/03/19 History chlorthalidone 25 mg tablet 12.5 mg PO DAILY #30 tab 11/12/18 03/03/19 History coenzyme Q10 100 mg capsule 200 mg PO DAILY cap 11/12/18 03/03/19 History Allergies Allergy/AdvReac Type Severity Reaction Status Date / Time levofloxacin AdvReac Intermediate DIFFICULTY Verified 03/03/19 13:36 WALKING "LEGS FROZE UP" lisinopril AdvReac Intermediate UPSET Verified 03/03/19 13:36 STOMACH AND DIZZINESS Past Med/Surg History Medical History Dizziness Generalized convulsive seizure Obstructive sleep apnea Actinic keratosis (Acute) Aneurysm of right leg (Acute) Asthma (Acute) Bronchiectasis (Acute) Carpal tunnel syndrome, bilateral (Acute) Chronic asthmatic bronchitis (Acute) Chronic sinusitis (Acute) Complex partial seizure (Acute) Controlled type 2 diabetes mellitus, with long-term current use of insulin (Acute) GERD without esophagitis (Acute) Hemorrhoids (Acute) Interstitial lung disease (Acute) Lumbar spinal stenosis (Acute) Lumbosacral radiculopathy (Acute) Lung nodule (Acute) Male erectile disorder of organic origin (Acute) Mild cognitive impairment (Acute) Paresthesias (Acute) Peripheral arterial occlusive disease (Acute) Seizure disorder (Acute) Uncontrolled hypertension (Acute) Vitamin D deficiency (Acute) Cancer PROSTATE CA - 10 YEARS AGO - TREATED W/ RADIOACTIVE SEED IMPLANTS Chronic back pain Chronic bronchitis Claudication of right lower extremity Diabetes mellitus, type 2 IDDM GERD (gastroesophageal reflux disease) History of tooth extraction Hyperlipidemia Hypertension Myocardial Infarction "SILENT PA" -- "MANY, MANY YEARS AGO" (COULD NOT RECALL) - CARDIAC CATH - DR. DUPONT AT [facility] [place] - NO STENTS/ANGIOPLASTY. Osteoarthritis Sciatica Seizure POST MENINGIOMA SURGERY - ON ORAL MED - LAST 2013 - FOLLOWS W/ DR. PERLA Surgical History H/O sinus surgery History of cataract surgery History of colonoscopy History of herniorrhaphy History of surgery REMOVAL OF MENINGIOMA (BENIGN) - 2012 [facility] DR. EATON Family History Father Congestive heart failure Brother Colon cancer Stroke syndrome Social History Preferred Language: Chinese Communication Ability: Effective Security System Administrator Required: No Beliefs That Will Affect Care: None Current Living Situation: Spouse Feels Safe at Home: Yes Smoking Status: Unknown if ever smoked Hx Alcohol Use: Yes Alcohol type: other Hx Substance Use: No Review of Systems See HPI for pertinent positives & negatives. and A total of 10 systems reviewed and were otherwise negative Physical Exam Vital Signs Vital Signs - 24 hr 03/03/19 12:40 03/03/19 12:53 03/03/19 12:58 Temperature 36.7 C Temperature Source Oral Sepsis Recent Fever Within 48 Hours No Sepsis Action Taken by Nursing No Action Required Pulse Rate 65 64 76 Pulse Rate from SpO2 Sensor 65 64 Pulse Rhythm Regular Pulse Strength Normal Respiratory Rate 16 24 17 Respiratory Effort / Characteristics Non-Labored Respiratory Depth Normal Respiratory Pattern Regular Blood Pressure 187/72 H 187/72 H Blood Pressure Mean 110 110 Blood Pressure Position Lying Pulse Oximetry 95 95 94 Oxygen Delivery Method Room Air 03/03/19 13:00 03/03/19 13:16 03/03/19 13:17 Temperature Temperature Source Sepsis Recent Fever Within 48 Hours Sepsis Action Taken by Nursing Pulse Rate 63 72 71 Pulse Rate from SpO2 Sensor 62 72 69 Pulse Rhythm Pulse Strength Respiratory Rate 28 H 24 24 Respiratory Effort / Characteristics Respiratory Depth Respiratory Pattern Blood Pressure 180/86 H 210/95 H 208/87 H Blood Pressure Mean 117 133 127 Blood Pressure Position Pulse Oximetry 94 91 93 Oxygen Delivery Method 03/03/19 13:23 03/03/19 13:30 03/03/19 13:31 Temperature Temperature Source Sepsis Recent Fever Within 48 Hours Sepsis Action Taken by Nursing Pulse Rate 70 63 Pulse Rate from SpO2 Sensor 67 63 66 Pulse Rhythm Pulse Strength Respiratory Rate 29 H 22 33 H Respiratory Effort / Characteristics Respiratory Depth Respiratory Pattern Blood Pressure 196/84 H 169/90 H Blood Pressure Mean 121 116 Blood Pressure Position Pulse Oximetry 92 93 93 Oxygen Delivery Method 03/03/19 13:32 03/03/19 13:46 03/03/19 14:00 Temperature Temperature Source Sepsis Recent Fever Within 48 Hours Sepsis Action Taken by Nursing Pulse Rate 64 55 L Pulse Rate from SpO2 Sensor 65 Pulse Rhythm Pulse Strength Respiratory Rate 22 33 H 23 Respiratory Effort / Characteristics Respiratory Depth Respiratory Pattern Blood Pressure 178/111 H Blood Pressure Mean 133 Blood Pressure Position Pulse Oximetry 91 Oxygen Delivery Method 03/03/19 14:01 03/03/19 14:15 03/03/19 14:30 Temperature Temperature Source Sepsis Recent Fever Within 48 Hours Sepsis Action Taken by Nursing Pulse Rate 56 L 57 L 59 L Pulse Rate from SpO2 Sensor Pulse Rhythm Pulse Strength Respiratory Rate 22 24 26 H Respiratory Effort / Characteristics Respiratory Depth Respiratory Pattern Blood Pressure 134/67 155/74 H 140/77 Blood Pressure Mean 89 101 98 Blood Pressure Position Pulse Oximetry Oxygen Delivery Method 03/03/19 14:45 Temperature Temperature Source Sepsis Recent Fever Within 48 Hours Sepsis Action Taken by Nursing Pulse Rate 60 Pulse Rate from SpO2 Sensor Pulse Rhythm Pulse Strength Respiratory Rate 23 Respiratory Effort / Characteristics Respiratory Depth Respiratory Pattern Blood Pressure 166/86 H Blood Pressure Mean 112 Blood Pressure Position Pulse Oximetry Oxygen Delivery Method GENERAL: Patient is awake, alert, and in no acute distress.Patient is resting comfortably and showing no signs of anxiety EYES: The conjunctivae are clear. The pupils are round and reactive. EARS, NOSE, MOUTH AND THROAT: The nose is without any evidence of any deformity. Mucous membranes are moist.Tongue is midline NECK: The neck is nontender and supple. RESPIRATORY: Normal respiratory effort is noted. There is no evidence of wheezing rhonchi or rales to auscultation. CARDIOVASCULAR: Regular rate and rhythm noted. There no murmurs rubs or gallops normal S1 normal S2 GASTROINTESTINAL: The abdomen is soft. Bowel sounds are present in all quadrants. Abdomen is nontender. MUSCULOSKELETAL/EXTREMITIES: There is no evidence of gross deformity. Full range of motion is noted in the hips and shoulders. SKIN: Trace pedal edema bilaterally. Skin is warm, dry. NEUROLOGIC: Patient is awake alert and oriented x3. Speech was pressure. Patient had mild difficult with word finding. Word finding improved, according to the patient's significant other, compared to at home. No facial droop is noted. 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 Patient is able to hold each leg off bed greater than 5 seconds. Course 1240: Past medical records reviewed. The patient was evaluated in room A1. A complete history and physical exam was performed. 1410: I reviewed the patient's [facility]. Dr. Anurag archer will evaluate the patient for further management. 1432: I discussed the patient's CT findings with Dr. [facility]rostro-[facility]. At this time, we will maximize anti-platelet therapy and will continue monitoring risk factors from a vascular standpoint. Consultations Consultation #1: I reviewed the patient's case with Dr. Paulson-K[facility]. Dr. Paulson will evaluate the patient for further management. Time: 14:10 Consultation #2: I discussed the patient's CT findings with Dr. Buenrostro- [facility]. At this time, we will maximize anti-platelet therapy and will continue monitoring risk factors from a vascular standpoint. Time: 14:32 Administered Medications Sodium Chloride (Nss 1000ml) 1,000 mls @ 50 mls/hr IV .Q20H INNA Stop: 04/02/19 12:44 Last Admin: 03/03/19 12:59 Dose: 50 mls/hr Documented by: [id number] Ioversol (Optiray 320 125ml) 119 ml IV ONCE PRN PRN Reason: Interaction Checking Stop: 03/07/19 12:49 Last Admin: 03/03/19 12:51 Dose: 119 ml Documented by: [id number] Discontinued Medications Aspirin (Aspirin) 324 mg PO NOW STA Stop: 03/03/19 14:11 Last Admin: 03/03/19 14:19 Dose: 324 mg Documented by: [id number] Medical Decision Making Differential Diagnosis Differential Diagnosis includes but is not limited to ischemic Stroke, hemorrhagic stroke, bells palsy, mass, neoplasm, migraine headache, seizure, subarachnoid hemorrhage, TIA, and transient global amnesia. Medical Records Attestation: I reviewed the patient's medical records. Home Medications Current Medication List: was personally reviewed by me Laboratory Data Attestation: I reviewed the patient's lab results. Result diagrams: 03/03/19 12:58 03/03/19 12:58 Lab Results 03/03/19 03/03/19 03/03/19 Range/Units 12:58 12:58 12:58 WBC 4.89 (4.8-10.8) K/uL RBC 4.69 L (4.7-6.1) M/uL Hgb 15.2 (14.0-18.0) g/dL Hct 44.3 (42-52) % MCV 94.5 (80-100) fL MCH 32.4 (25-34) pg MCHC 34.3 (32-36) g/dL RDW Std Deviation 45.5 (36.4-46.3) fL RDW Coeff of Shaun 13.3 (11.5-14.5) % Plt Count 170 (130-400) K/uL MPV 11.7 H (7.4-10.4) fL Immature Gran % (Auto) 0.6 % Neut % (Auto) 44.4 % Lymph % (Auto) 36.0 % [place] % (Auto) 13.5 % Eos % (Auto) 5.1 % Baso % (Auto) 0.4 % Immature Gran # (Auto) 0.03 H (0.00-0.02) K/uL Neut # (Auto) 2.17 (1.4-6.5) K/uL Lymph # (Auto) 1.76 (1.2-3.4) K/uL [place] # (Auto) 0.66 H (0.11-0.59) K/uL Eos # (Auto) 0.25 (0-0.5) K/uL Baso # (Auto) 0.02 (0-0.2) K/uL PT 10.9 (9.0-12.0) Seconds INR 1.1 (0.9-1.1) APTT 27.1 (21.0-31.0) Seconds PTT Ratio 1.0 Sodium 137 (136-145) mmol/L Potassium 3.9 (3.5-5.1) mmol/L Chloride 105 (98-107) mmol/L Carbon Dioxide 24 (21-32) mmol/L Anion Gap 7.0 (3-11) BUN 17 (7-18) mg/dl Creatinine 1.15 (0.6-1.4) mg/dl Est Cr Clr Drug Dosing 49.8 ml/min Est GFR ( Amer) 67.8 Est GFR (Non-Af Amer) 58.5 BUN/Creatinine Ratio 15.1 (10-20) Glucose 77 (70-99) mg/dl Calcium 8.8 (8.5-10.1) mg/dl Magnesium 2.1 (1.8-2.4) mg/dl Total Bilirubin 0.4 (0.2-1) mg/dl AST 21 (15-37) U/L ALT 26 (12-78) U/L Alkaline Phosphatase 42 L (45-117) U/L Troponin I < 0.015 (0-0.045) ng/ml Total Protein 6.7 (6.4-8.2) gm/dl Albumin 3.6 (3.4-5.0) gm/dl Globulin 3.1 (2.5-4.0) gm/dl Albumin/Globulin Ratio 1.2 (0.9-2) Imaging Data Radiologist's Impression: Radiology results as stated below per my review and the radiologist's interpretation: HEAD CTA, NECK CTA HISTORY: weakness TECHNIQUE: Multiaxial CT images of the head were performed following the intravenous administration of contrast to evaluate the major cerebral vessels. Multiaxial CT images of the neck were also performed following the intravenous administration of contrast to evaluate the major cervical vessels. Maximum intensity projection images were also obtained. A dose lowering technique was utilized adhering to the principles of ALARA. COMPARISON: Brain MRI 11/24/2017. FINDINGS: Prior right frontal craniotomy with underlying encephalomalacia within the right frontal lobe. This remains unchanged. An 11 mm nodular extra-axial focus of enhancement within the right frontal lobe on image 167. This remains stable and may represent a small amount of residual/recurrent meningioma. Mild focal narrowing within the ophthalmic segment of the bilateral internal carotid arteries due to the calcified plaque. The distal vertebral arteries and basilar artery are widely patent. The bilateral ACAs and emergency room clerk are widely patent. No aneurysm identified. Mild focal narrowing within the bilateral M1 segments. Multifocal high-grade stenosis versus occlusion within a 1 cm segment of the superior division of the proximal right M2 segment. This is best seen on axial image 105 of 269. However, there is distal reconstitution of the vessel. The major dural venous sinuses are not well opacified but likely patent. The aortic arch and proximal great vessels are widely patent. Calcified plaque within the bilateral carotid bulbs. This results in approximately 70-80% focal stenosis within the proximal left internal carotid artery along a 1 cm segment. There is approximately 40% focal stenosis within the proximal right internal carotid artery. The bilateral mid to distal internal carotid arteries, common carotid arteries, and vertebral arteries are widely patent. No evidence for dissection. A 9 mm thyroid nodule. Multiple retention cyst within the right paranasal sinuses. Trace left mastoid effusion. A subtle 2.5 cm groundglass density within the right upper lobe on image 95. This remains unchanged. IMPRESSION: 1. Multifocal high-grade stenosis versus occlusion within a 1 cm segment of the superior division of the proximal right M2 segment. However, there is distal reconstitution of the vessel. 2. Approximately 70-80% focal stenosis within the proximal left internal carotid artery and approximately 40% focal stenosis within the proximal right internal carotid artery due to the calcified plaque. 3. No change in the sagittal 2.5 cm groundglass nodule within the right upper lobe. Despite the long-term stability this should be considered a low-grade neoplasm until proven otherwise. Electronically signed by: Tyrone White M.D. 03/03/2019 1:[address] OF THE HEAD WITHOUT CONTRAST CLINICAL HISTORY: Stroke evaluation COMPARISON STUDY: Head CT December 28, 2013. Sinus CT December 23, 2016. TECHNIQUE: Helical axial images of the head were obtained without IV contrast. Automated exposure control was utilized for the study. A dose lowering technique was utilized adhering to the principles of ALARA. FINDINGS: No acute intracranial hemorrhage, midline shift or mass effect is present. Encephalomalacia within the right frontal lobe is unchanged. A small extra-axial density on image 17 is unchanged since MRI November 03, 2018 and was shown on head CT of December 28, 2013. This is unchanged. The ventricular system is stable. Basilar cisterns are patent. There are no extra axial collections. 1.4 cm hypodensity within the anterior limb of the left internal capsule and basal ganglia is unchanged since sinus CT of December 23, 2016. Right-sided craniotomy is unchanged in appearance. Small amount of left mastoid fluid is noted. IMPRESSION: 1. No acute intracranial hemorrhage. 2. No change in appearance of the brain since CT of December 23, 2016. Right frontal encephalomalacia with an extra-axial focus which may reflect stable recurrent tumor or postoperative change. Electronically signed by: Pierre Alexander M.D. 03/03/2019 1:04 PM XR chest 1V portable CLINICAL HISTORY: 83 years-old Male presenting with weakness. TECHNIQUE: Portable upright AP view of the chest was obtained. COMPARISON: 12/23/[address] from 05/18/2018. FINDINGS: Atherosclerosis of the aortic arch. Cardiac silhouette enlarged. Minimal pulmonary vascular prominence new from prior. Minimal basilar opacities. No pleural effusion or pneumothorax. Osseous structures normal. Upper abdomen normal. IMPRESSION: 1. Cardiomegaly with mild volume overload. No julio cesar pulmonary edema. 2. Minimal bibasilar atelectasis. Electronically signed by: Cristobal Patino M.D. 03/03/2019 1:59 PM ECG Data Attestation: I personally reviewed and interpreted this ECG as follows: Indication: altered mental status and other Rate (beats per minute): 61 Rhythm: sinus rhythm Findings: + 1st degree AV block and + RBBB; no PVC Blood Pressure Blood Pressure Findings: Elevated blood pressure Blood Pressure Disposition: further management by hospitalist [facility] Narrative The patient is an 83-year-old male who presented to the emergency department as a stroke alert. I received a prehospital phone call about this patient and he was made a stroke alert prior to arrival. The patient has a history of meningioma resection approximately 4-5 years ago. The patient also has a history of seizures for which she is being treated with Keppra. The patient had trouble with word finding and had some degree of dysarthria. He also had a facial droop reported by the prehospital personnel. Strength appeared symmetric. The patient may have had a slight facial droop upon arrival however his symptoms quickly improved while he was in the emergency department. I disc ussed the patient's laboratory and radiographic studies with him. The patient's symptoms continued to improve while he was in the emergency department. He was evaluated by the tele-stroke neurologist and at this time was not felt to be a good candidate for TPA given his previous surgical history as well as his rapidly improving symptoms. Angiography did appear to show signs of internal carotid stenosis as well as a right MCA lesion. It was unclear if this was the cause of his symptoms. Certainly the patient's symptoms are continuing to improve despite this finding on CAT scan. I discussed the patient's condition with the on-call [facility] hospitalist. They have agreed to evaluate the patient in the emergency department for further management disposition. He was not felt to be a good candidate for transfer for interventional purposes. He was treated with aspirin. Impression & Plan TIA (transient ischemic attack), Carotid stenosis, Intracranial carotid stenosis Discharge Plan Visit Data Chief Complaint: Stroke Alert ED Provider: Abilio Barrios Discharge Problem: TIA (transient ischemic attack), Carotid stenosis, Intracranial carotid stenosis Patient Disposition: Being Evaluated by Hospitalist Forms Stand Alone Forms: My [facility] Prescriptions Prescriptions: No Action chlorthalidone 25 mg tablet 12.5 mg PO DAILY Qty: 30 RF: 0 coenzyme Q10 100 mg capsule 200 mg PO DAILY RF: 0 multivitamin Tablet 1 tab PO QAM RF: 0 atorvastatin 80 mg Tablet 80 mg PO HS RF: 0 amlodipine [Norvasc] 5 mg Tablet 5 mg PO BID RF: 0 aspirin 81 mg Tablet,Delayed Release (Dr/Ec) 81 mg PO QAM RF: 0 nitroglycerin 0.4 mg Tablet, Sublingual 1 tab Sublingual UD PRN (Reason: Chest Pain) RF: 0 docusate sodium 100 mg Capsule 100 mg PO HS RF: 0 mometasone 50 mcg/actuation [place],Non-Aerosol 2 spray INTRANASAL DAILY RF: 0 gabapentin 100 mg Capsule 100 mg PO HS RF: 0 fluticasone propion-salmeterol [Advair Diskus] 100-50 mcg/dose Blister With Device 1 puff INHALATION BID RF: 0 losartan [Cozaar] 100 mg Tablet 100 mg PO QAM RF: 0 atenolol 50 mg Tablet 50 mg PO QAM RF: 0 insulin lispro [Humalog KwikPen Insulin] 100 unit/mL Insulin Pen 3 - 5 unit SUBCUT AC RF: 0 Humulin N NPH Insulin KwikPen 100 unit/mL (3 mL) Insulin Pen 10 - 14 unit SUBCUT HS RF: 0 cinnamon bark [Cinnamon] 500 mg Capsule 1,000 mg PO DAILY RF: 0 levetiracetam [Keppra] 1,000 mg Tablet 1,000 mg PO BID RF: 0 cholecalciferol (vitamin D3) [Vitamin D3] 2,000 unit Capsule 2,000 unit PO DAILY RF: 0 omega 3-ryk-dfi-fish oil [Fish Oil] 1,000 mg (120 mg-180 mg) Capsule 1 cap PO DAILY RF: 0 cyanocobalamin (vitamin B-12) 1,000 mcg Capsule 1,000 mcg PO QAM RF: 0 ranitidine HCl [Zantac] 150 mg Tablet 150 mg PO HS RF: 0 Referrals Referrals: Max Storm [Primary Care Provider] - Discharge Problem: Carotid stenosis Qualifiers: Laterality: unspecified laterality Qualified Code(s): I65.29 - Occlusion and stenosis of unspecified carotid artery Intracranial carotid stenosis Qualifiers: Laterality: unspecified laterality Qualified Code(s): I65.29 - Occlusion and stenosis of unspecified carotid artery The scribe's documentation has been prepared under my direction and personally reviewed by me in its entirety. I confirm that the note above accurately reflects all work, treatment, procedures, and medical decision making performed by me.
--- NOTE | 2019-03-03 16:39 | History & Physical Report ---
Date of Service March 03, 2019 Assessment & Plan (1) TIA (transient ischemic attack): 83-year-old male with a past medical history of meningioma status post resection in 2012, subsequent seizures, T2DM, HLD, HTN, CAD, PAD, asthma, lumbar radiculopathy presents to [facility] after experiencing confusion and speech issues this morning. Differential includes TIA, stroke, carotid stenosis, seizure, hypertensive urgency. Patient's symptoms are most consistent with TIA as the symptoms have improved since being in the emergency room. [place] stroke alert was called, but TPA was not initiated. TIAspeech issues, dysarthria resolved Significant risk factors for TIA, high-grade stenosis of right MCA seen on CTA Admit to telemetry, continue work-up with MRI without contrast Neuro consulted per stroke protocol, appreciate recommendations Starting Plavix. Continue blood pressure, lipid and diabetes management Echocardiogram ordered Hypertensive urgency History of resistant hypertension Continue home blood pressure medications including amlodipine, chlorthalidone and losartan Discontinuing atenolol and replacing with Coreg 6.5 mg. May need to go up on Coreg tomorrow. Will observe BP overnight, consider going up on chlorthalidone to 25 mg if pressures are still elevated Carotid stenosis 70 to 80% stenosis of the left internal carotid Does not correlate with symptoms, follow-up in the outpatient setting CAD, hypertension, hyperlipidemia, diabetes, peripheral artery disease Continue BP meds as described above Continue insulin Continue atorvastatin 80 mg Seizure disorder Continue Keppra 1000 mg twice daily Lumbar radiculopathy Continue gabapentin GERD Continue ranitidine Dietheart healthy, carb count DVT prophylaxisLovenox 30 mg daily CODE STATUSDNR/DNI (2) Carotid stenosis: (3) Intracranial carotid stenosis: (4) Lumbar spinal stenosis: (5) Lung nodule: (6) Seizure disorder: (7) CAD (coronary artery disease): (8) Hyperlipidemia: (9) Diabetes: (10) Asthma: (11) HTN (hypertension): History of Present Illness Primary Care Provider: Max Storm 83-year-old male with a past medical history of meningioma status post resection in 2012, subsequent seizures, T2DM, HLD, HTN, CAD, PAD, asthma, lumbar radiculopathy presents to [facility] after experiencing confusion and speech issues this morning. Symptoms began around 1130 this morning when he was watching TV. He stated that he had trouble expressing and articulating words. He had normal thought processes and remembers the episode clearly. The symptoms were present, but improving on arrival to the hospital. In addition to word finding, the patient also had some slurred speech noted by his . She also states that he also seemed confused. While he denies a history of stroke or TIA, his states that when he had seizures following his meningioma resection, he had symptoms of confusion. She also expresses that he had tonic-clonic features with those seizures. The patient is a insulin-dependent diabetic. He reports hypoglycemic episodes in the past with similar symptoms of confusion. Patient denies recent illness or dehydration. Patient denies chest pain, shortness of breath. He denies focal neuro deficitsno unilateral weakness or loss of sensation. The patient has a history of resistant hypertension, but the family states that his pressures have been well controlled. Today's pressures were elevated in the emergency room. He reports heart catheterization over 20 years ago which showed CAD, with good collateral circulation Allergies Allergy/AdvReac Type Severity Reaction Status Date / Time levofloxacin AdvReac Intermediate DIFFICULTY Verified 03/03/19 13:36 WALKING "LEGS FROZE UP" lisinopril AdvReac Intermediate UPSET Verified 03/03/19 13:36 STOMACH AND DIZZINESS Home Medications Home Medications Medication Instructions Recorded Confirmed Type Humulin N NPH Insulin KwikPen 10 - 14 unit SUBCUT HS 02/20/18 03/03/19 History amlodipine [Norvasc] 5 mg PO BID 02/20/18 03/03/19 History aspirin 81 mg PO QAM 02/20/18 03/03/19 History atenolol 50 mg PO QAM 02/20/18 03/03/19 History atorvastatin 80 mg PO HS 02/20/18 03/03/19 History cholecalciferol (vitamin D3) 2,000 unit PO DAILY 02/20/18 03/03/19 History [Vitamin D3] cinnamon bark [Cinnamon] 1,000 mg PO DAILY 02/20/18 03/03/19 History cyanocobalamin (vitamin B-12) 1,000 mcg PO QAM 02/20/18 03/03/19 History docusate sodium 100 mg PO HS 02/20/18 03/03/19 History fluticasone propion-salmeterol 1 puff INHALATION BID 02/20/18 03/03/19 History [Advair Diskus] gabapentin 100 mg PO HS 02/20/18 03/03/19 History insulin lispro [Humalog KwikPen 3 - 5 unit SUBCUT AC 02/20/18 03/03/19 History Insulin] levetiracetam [Keppra] 1,000 mg PO BID 02/20/18 03/03/19 History losartan [Cozaar] 100 mg PO QAM 02/20/18 03/03/19 History mometasone 2 spray INTRANASAL DAILY 02/20/18 03/03/19 History multivitamin 1 tab PO QAM 02/20/18 03/03/19 History nitroglycerin 1 tab SUBLINGUAL UD PRN 02/20/18 03/03/19 History omega 6-amz-ewc-fish oil [Fish Oil] 1 cap PO DAILY 02/20/18 03/03/19 History ranitidine HCl [Zantac] 150 mg PO HS 10/07/18 03/03/19 History chlorthalidone 25 mg tablet 12.5 mg PO DAILY #30 tab 11/12/18 03/03/19 History coenzyme Q10 100 mg capsule 200 mg PO DAILY cap 11/12/18 03/03/19 History Past Med/Surg History Medical History Dizziness Generalized convulsive seizure Obstructive sleep apnea Actinic keratosis (Acute) Aneurysm of right leg (Acute) Asthma (Acute) Bronchiectasis (Acute) Carpal tunnel syndrome, bilateral (Acute) Chronic asthmatic bronchitis (Acute) Chronic sinusitis (Acute) Complex partial seizure (Acute) Controlled type 2 diabetes mellitus, with long-term current use of insulin (Acute) GERD without esophagitis (Acute) Hemorrhoids (Acute) Interstitial lung disease (Acute) Lumbar spinal stenosis (Acute) Lumbosacral radiculopathy (Acute) Lung nodule (Acute) Male erectile disorder of organic origin (Acute) Mild cognitive impairment (Acute) Paresthesias (Acute) Peripheral arterial occlusive disease (Acute) Seizure disorder (Acute) Uncontrolled hypertension (Acute) Vitamin D deficiency (Acute) Cancer PROSTATE CA - 10 YEARS AGO - TREATED W/ RADIOACTIVE SEED IMPLANTS Chronic back pain Chronic bronchitis Claudication of right lower extremity Diabetes mellitus, type 2 IDDM GERD (gastroesophageal reflux disease) History of tooth extraction Hyperlipidemia Hypertension Myocardial Infarction "SILENT MN" -- "MANY, MANY YEARS AGO" (COULD NOT RECALL) - CARDIAC CATH - DR. DUPONT AT [facility] – [place] - NO STENTS/ANGIOPLASTY. Osteoarthritis Sciatica Seizure POST MENINGIOMA SURGERY - ON ORAL MED - LAST 2013 - FOLLOWS W/ DR. PERLA Surgical History H/O sinus surgery History of cataract surgery History of colonoscopy History of herniorrhaphy History of surgery REMOVAL OF MENINGIOMA (BENIGN) - 2012 [facility] [place] [facility] EATON Family History Father Congestive heart failure Brother Colon cancer Stroke syndrome Social History Preferred Language: Colombian Communication Ability: Effective Hotel Clerk Required: No Beliefs That Will Affect Care: None Current Living Situation: Spouse Other Information That Helps Us Care for You: No Feels Safe at Home: Yes Safety Concerns: Feels Safe At This Time Smoking Status: Never smoker Tobacco Type: cigarettes ; Cigarettes Per Day: QUIT 35 YEARS AGO ; Second Hand Exposure: No ; Hx Alcohol Use: Yes Alcohol type: hard liquor Hx Substance Use: No Review of Systems Review of Systems: All systems reviewed & are unremarkable except as noted in HPI & below Physical Exam Constitutional: WD/WN, vitals as above Eyes: PERRL, conjunctivae normal, anicteric sclerae ENMT: external ear and nose normal, oropharynx normal Neck: trachea midline, no thyromegaly Respiratory: normal respiratory effort, lungs clear to auscultation Cardiovascular: RRR, no murmur, no edema Gastrointestinal (Abdomen): normal bowel sounds, soft, nontender, no hepatosplenomegaly Skin: no rashes, warm and dry Neurologic: PERRL, EOMI, accommodation nl, no face palsy, no dysarthria Results & Data Vital Signs (Past 12 Hours) Vital Signs Temp Pulse Resp BP Pulse Ox 03/03/19 16:06 63 24 196/101 H 92 03/03/19 16:01 64 24 214/105 H 03/03/19 16:00 82 24 03/03/19 15:45 62 18 162/87 H 03/03/19 15:30 61 27 H 180/85 H 03/03/19 15:15 74 20 162/86 H 03/03/19 15:00 64 20 176/78 H 96 03/03/19 14:45 60 23 166/86 H 03/03/19 14:30 59 L 26 H 140/77 03/03/19 14:15 57 L 24 155/74 H 03/03/19 14:01 56 L 22 134/67 03/03/19 14:00 55 L 23 03/03/19 13:46 33 H 178/111 H 03/03/19 13:32 64 22 91 03/03/19 13:31 33 H 169/90 H 93 03/03/19 13:30 63 22 93 03/03/19 13:23 70 29 H 196/84 H 92 03/03/19 13:17 71 24 208/87 H 93 03/03/19 13:16 72 24 210/95 H 91 03/03/19 13:00 63 28 H 180/86 H 94 03/03/19 12:58 76 17 94 03/03/19 12:53 64 24 187/72 H 95 03/03/19 12:40 36.7 C 65 16 187/72 H 95 Code Status & VTE Plan VTE Prophylaxis Plan VTE Prophylaxis will be ordered: Yes Supervising Physician Co-Signing Physician Notes I personally examined the patient and verified all flores points of history and exam, discussed case, and agree with decision making with Dr Avitia. Left facial droop and slurred speech, now all better. Family corroborates that he is back to baseline as well. Vitals noted, in general he is awake and alert pleasant no distress. HEENT normocephalic atraumatic mucous members moist. Breathing unlabored no accessory muscle use good effort. Skin shows no rashes no pallor or icterus. He shows no focal neuro deficits. Labs and diagnostics reviewed, plan of care discussed with Dr. Avitia extensively, updated family and discussed plans extensively as well. TIAclinically appears to have suffered a TIA, given the left facial droop and the difficulty with word finding it seems most likely that the right-sided intracranial stenosis is the main culprit. Certainly will appreciate neurology input on this as well, because if the word finding was at all thought to be a left brain phenomenon, then his carotid stenosis would be of more immediate significance on the left. For now on Plavix, will need to discuss with neurology, but he seems to fit close to the profile of the studied population that would gain benefit from a short overlap of aspirin plus Plavix before changing to Plavix alone. Obviously need to get better blood pressure control, and will initiate this first by substituting his atenolol for carvedilol for the alpha blockade. He notes to me that he was actually recently stopped from chlorthalidone due to dizziness. Therefore we will hold this. Titrate other blood pressure meds as needed. He is already on 80 of atorvastatin so escalating lipid control is unlikely to be of benefit, and we will check an A1c but his sugar control appears to have been very good over the last several years. Otherwise as above. PG Care Time/CCT Total # of Minutes Spent Total Time Spent with Patient: Total time spent is greater than 50% in coordination of care (as documented) at patient's floor/unit and/or counseling patient: Resident Activity Tracking Resident Involvement: Resident Care Provided Care Provided: Adult Hospital Medicine (1) Intracranial carotid stenosis Laterality: unspecified laterality Qualified Code(s): I65.29 - Occlusion and stenosis of unspecified carotid artery (2) Carotid stenosis Laterality: unspecified laterality Qualified Code(s): I65.29 - Occlusion and stenosis of unspecified carotid artery
[2019-03-03] MEDS ORDERED: ACETAMINOPHEN 325 MG TAB PO PRN (17:56)
[2019-03-03] MEDS ORDERED: NITROGLYCERIN SL 0.4 MG/TAB TAB SL PRN (17:56)
[2019-03-03] MEDS ORDERED: carvediloL 6.25 MG TAB PO STA (17:56)
[2019-03-03] MEDS ORDERED: PHARMACIST DISCHARGE MED REC CONSULT PRN (17:56)
[2019-03-03] MEDS ORDERED: GLUCOSE 10 TABS/TUBE PO PRN (18:15)
[2019-03-03] MEDS ORDERED: GLUCOSE 40% GEL 15 GM TUBE PO PRN (18:15)
[2019-03-03] MEDS ORDERED: CARBOHYDRATES FOR HYPOGLYCEMIA PO PRN (18:15)
[2019-03-03] MEDS ORDERED: DEXTROSE 50% 50 ML SYRINGE IV PRN (18:15)
[2019-03-03] MEDS ORDERED: GLUCAGON FOR INJ 1 MG VIAL IM PRN (18:15)
[2019-03-03] MEDS: CLOPIDOGREL BISULFATE 75 MG TAB PO SCH (18:33)
[2019-03-03] MEDS ORDERED: ENOXAPARIN INJ 30 MG/0.3 ML SYR SQ SCH (19:00)
--- NOTE | 2019-03-03 20:53 | Magnetic Resonance Report ---
MRI OF THE BRAIN WITHOUT IV CONTRAST CLINICAL HISTORY: Strokelike symptoms. Difficulty speaking. COMPARISON STUDY: CT of the brain dated 03/03/2019. MRI of the brain dated 11/03/2018. TECHNIQUE: MRI of the brain was performed utilizing various T1 and T2-weighted sequences in the axial , sagittal, and coronal planes. IV contrast was not administered for this examination. FINDINGS: Brain parenchyma: Right frontal encephalomalacia is unchanged. There is age-related involutional gibson ge noting mild subcortical and periventricular microangiopathic disease. A chronic lacunar infarct is noted in the left basal ganglia. There is no hemorrhage or mass effect. There is no restricted diffu selin to suggest acute ischemia. Logan-white matter differentiation is preserved. No extra-axial fluid collection is seen. The cerebellar tonsils are normal in configuration. Ventricles, sulci, and cisterns: Prominent secondary to involutional change. Pituitary and sella: Unremarkable. Intracranial vasculature: Normal flow voids are maintained at the skull base. Orbits: The bony orbits are grossly intact. Orbital contents are normal in appearance noting bilatera l ocular lens implants. Sinuses and mastoids: A 1.6 cm retention cyst is seen in the right frontal sinus and a 2.2 cm retenti on cyst is seen in the right maxillary antrum. These are unchanged from previous. Trace mucosal thick ening is noted in the right sphenoid sinus and the left maxillary antrum. There are bilateral mastoid effusions, left larger than right. Calvarium: There is postoperative change from right-sided craniotomy. No destructive calvarial lesion is identified. Cervical cord: Partially visualized cervical spinal cord is normal in morphology and signal intensity . IMPRESSION: 1. Postoperative and senescent changes as above with no acute intracranial abnormality identified. 2. Bilateral mastoid effusions. Electronically signed by: Daniel Howe M.D. 03/03/2019 8:52 PM
[2019-03-03] MEDS ORDERED: ATORVASTATIN 40 MG TAB PO SCH (21:00)
[2019-03-03] MEDS ORDERED: INSULIN HUMAN NPH SC SCH (21:00)
[2019-03-03] MEDS ORDERED: GABAPENTIN 100 MG CAP PO SCH (21:00)
[2019-03-03] MEDS: levETIRAcetam 500 MG TAB PO SCH (21:02)
[2019-03-03] MEDS: AMLODIPINE BESYLATE 5 MG TAB PO SCH (21:03)
[2019-03-03] MEDS: INSULIN ASPART 100 UNITS/ML 3 ML PEN SC SCH (21:29)
[2019-03-04 06:04] LABS: Estimated Average Glucose 140 mg/dl; Hemoglobin A1C 6.5 % (4.5-5.6)
[2019-03-04 07:21] LABS: Basophils # (auto) 0.02 K/uL (0-0.2); Basophils % (auto) 0.4 %; Eosinophils # (auto) 0.33 K/uL (0-0.5); Hematocrit (blood only) 46.5 % (42-52); Hemoglobin 15.9 g/dL (14.0-18.0); Immature Granulocytes # (auto) 0.03 K/uL (0.00-0.02); Immature Granulocytes % (auto) 0.6 %; Lymphocytes # (auto) 1.26 K/uL (1.2-3.4); Lymphocytes % (auto) 26.7 %; Mean Corpuscular Hgb Conc 34.2 g/dL (32-36); Mean Corpuscular Volume 93.6 fL (80-100); Mean Platelet Volume 11.8 fL (7.4-10.4); Monocytes # (auto) 0.87 K/uL (0.11-0.59); Monocytes % (auto) 18.4 %; Neutrophils # (auto) 2.21 K/uL (1.4-6.5); Neutrophils % (auto) 46.9 %; Platelet Count 163 K/uL (130-400); RDW Coefficient of Variation 13.4 % (11.5-14.5); RDW Standard Deviation 45.7 fL (36.4-46.3); Red Blood Count 4.97 M/uL (4.7-6.1); White Blood Count 4.72 K/uL (4.8-10.8)
[2019-03-04 07:49] LABS: BUN Creatinine Ratio 14.8 (10-20); Calcium 9.2 mg/dl (8.5-10.1); Creatinine Clr Calc Pharmacy 54.5 ml/min; Est GFR (African American) 76.6; Est GFR (Non-African American) 66.1; Potassium 3.9 mmol/L (3.5-5.1)
[2019-03-04] MEDS: CLOPIDOGREL BISULFATE 75 MG TAB PO SCH (08:33)
[2019-03-04] MEDS: levETIRAcetam 500 MG TAB PO SCH (08:33)
[2019-03-04] MEDS: AMLODIPINE BESYLATE 5 MG TAB PO SCH (08:33)
[2019-03-04] MEDS: INSULIN ASPART 100 UNITS/ML 3 ML PEN SC SCH ×3 (08:35→17:37)
[2019-03-04] MEDS ORDERED: LOSARTAN POTASSIUM 50 MG TAB PO SCH (09:00)
[2019-03-04] MEDS ORDERED: carvediloL 6.25 MG TAB PO SCH (09:00)
[2019-03-04] MEDS ORDERED: CHLORTHALIDONE 25 MG TAB PO SCH (09:00)
[2019-03-04] MEDS ORDERED: ASPIRIN 81 MG ECTAB PO SCH (09:00)
[2019-03-04 09:10] LABS: Estimated Average Glucose 140 mg/dl; Hemoglobin A1C 6.5 % (4.5-5.6)
--- NOTE | 2019-03-04 10:03 | Neurology Consultation ---
Date of Consultation March 04, 2019 Assessment & Plan (1) TIA (transient ischemic attack): I suspect this patient had a TIA localizing to the left cerebral hemisphere presenting with transient aphasia and confusion. I suspect the 70 to 80% focal stenosis within the proximal left internal carotid artery is clinically significant. I agree with the addition of clopidogrel 75 mg/day. He should also continue with aspirin 81 mg/day for the time being. He will need a consultation with vascular surgery to discuss carotid endarterectomy. His atorvastatin appears to be maximal. His diabetes appears to be fairly well controlled. He should also have a transthoracic echocardiogram with bubble study. His blood pressure is also elevated and he will need ongoing medical management of this issue as well. 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 This issue has been clinically stable. However, it is possible that his current presentation could have been due to a nonconvulsive complex partial seizure. Yet, the observed behavior would seem to implicate the left cerebral hemisphere which would not be expected on the basis of his history and previous evaluations. His previous EEGs have revealed epileptiform abnormalities localized to the right cerebral hemisphere. At this point, I would also recommend increasing his dosage of levetiracetam to 1250 mg twice d aily. This patient may follow-up with me in the outpatient neurology clinic in the next 2 to 3 weeks. History of Present Illness Reason for Consultation: TIA Requesting Physician: Mars Avitia MD Attending Physician: Rebel Schwartz DO History of Present Illness The patient is an 83-year-old male with a chief complaint of speech changes that began acutely yesterday afternoon, about 1 hour prior to arrival in the emergency department. He had exhibited some difficulty with expressive speech and was also making some incorrect word substitutions. He seemed confused at that time as well according to his spouse as he had some difficulty opening the drawers to a cabinet, as if he did not know what to do. The patient has fairly good recollection of the episode. There was no associated loss of consciousness or obvious alteration in awareness. He did seem to stagger a bit during the episode although there was no fall or obvious weakness on either side of his body. The episode considerably improved by the time he was evaluated in the emergency department. However, the examining physician at that time did note some difficulty with word finding. There was some mention of a facial droop as well although this issue had resolved by the time of his ED assessment. Past medical history also notable for a right frontal meningioma resection approximately 5 years ago and associated complex partial seizures with secondary generalization that have been well controlled with Keppra. A tele-stroke consultation was obtained during this patient's emergency department evaluation. TPA was not administered. Currently, the patient feels quite well. His family is at bedside. He denies any lingering difficulty with speech, language comprehension, or confusion. He denies any associated vision loss or focal weakness. Additional details as below. Allergies Allergy/AdvReac Type Severity Reaction Status Date / Time levofloxacin AdvReac Intermediate DIFFICULTY Verified 03/03/19 13:36 WALKING "LEGS FROZE UP" lisinopril AdvReac Intermediate UPSET Verified 03/03/19 13:36 STOMACH AND DIZZINESS Home Medications Home Medications Medication Instructions Recorded Confirmed Type Humulin N NPH Insulin KwikPen 10 - 14 unit SUBCUT HS 02/20/18 03/03/19 History amlodipine [Norvasc] 5 mg PO BID 02/20/18 03/03/19 History aspirin 81 mg PO QAM 02/20/18 03/03/19 History atenolol 50 mg PO QAM 02/20/18 03/03/19 History atorvastatin 80 mg PO HS 02/20/18 03/03/19 History cholecalciferol (vitamin D3) 2,000 unit PO DAILY 02/20/18 03/03/19 History [Vitamin D3] cinnamon bark [Cinnamon] 1,000 mg PO DAILY 02/20/18 03/03/19 History cyanocobalamin (vitamin B-12) 1,000 mcg PO QAM 02/20/18 03/03/19 History docusate sodium 100 mg PO HS 02/20/18 03/03/19 History fluticasone propion-salmeterol 1 puff INHALATION BID 02/20/18 03/03/19 History [Advair Diskus] gabapentin 100 mg PO HS 02/20/18 03/03/19 History insulin lispro [Humalog KwikPen 3 - 5 unit SUBCUT AC 02/20/18 03/03/19 History Insulin] levetiracetam [Keppra] 1,000 mg PO BID 02/20/18 03/03/19 History losartan [Cozaar] 100 mg PO QAM 02/20/18 03/03/19 History mometasone 2 spray INTRANASAL DAILY 02/20/18 03/03/19 History multivitamin 1 tab PO QAM 02/20/18 03/03/19 History nitroglycerin 1 tab SUBLINGUAL UD PRN 02/20/18 03/03/19 History omega 5-dxq-hjq-fish oil [Fish Oil] 1 cap PO DAILY 02/20/18 03/03/19 History ranitidine HCl [Zantac] 150 mg PO HS 10/07/18 03/03/19 History chlorthalidone 25 mg tablet 12.5 mg PO DAILY #30 tab 11/12/18 03/03/19 History coenzyme Q10 100 mg capsule 200 mg PO DAILY cap 11/12/18 03/03/19 History Patient History Medical History Dizziness Generalized convulsive seizure Obstructive sleep apnea Actinic keratosis (Acute) Aneurysm of right leg (Acute) Asthma (Acute) Bronchiectasis (Acute) Carpal tunnel syndrome, bilateral (Acute) Chronic asthmatic bronchitis (Acute) Chronic sinusitis (Acute) Complex partial seizure (Acute) Controlled type 2 diabetes mellitus, with long-term current use of insulin (Acute) GERD without esophagitis (Acute) Hemorrhoids (Acute) Interstitial lung disease (Acute) Lumbar spinal stenosis (Acute) Lumbosacral radiculopathy (Acute) Lung nodule (Acute) Male erectile disorder of organic origin (Acute) Mild cognitive impairment (Acute) Paresthesias (Acute) Peripheral arterial occlusive disease (Acute) Seizure disorder (Acute) Uncontrolled hypertension (Acute) Vitamin D deficiency (Acute) Cancer PROSTATE CA - 10 YEARS AGO - TREATED W/ RADIOACTIVE SEED IMPLANTS Chronic back pain Chronic bronchitis Claudication of right lower extremity Diabetes mellitus, type 2 IDDM GERD (gastroesophageal reflux disease) History of tooth extraction Hyperlipidemia Hypertension Myocardial Infarction "SILENT [place]" -- "MANY, MANY YEARS AGO" (COULD NOT RECALL) - [place]ARDIAC C[place] - [place] [facility] [place]ANGIOP[place]. Osteoarthritis Sciatica Seizure POST MENINGIOMA SURGERY - ON ORAL MED - LAST 2013 - FOLLOWS W/ DR. STEVENS Surgical History H/O sinus surgery History of cataract surgery History of colonoscopy History of herniorrhaphy History of surgery REMOVAL OF MENINGIOMA (BENIGN) - [address] [facility] [address] 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 Beliefs That Will Affect Care: None Current Living Situation: Spouse Other Information That Helps Us Care for You: No Feels Safe at Home: Yes Safety Concerns: Feels Safe At This Time Smoking Status: Never smoker Tobacco Type: cigarettes ; Cigarettes Per Day: QUIT 35 YEARS AGO ; Second Hand Exposure: No ; Hx Alcohol Use: Yes Alcohol type: hard liquor Hx Substance Use: No Review of Systems Constitutional: no fever, no chills and no fatigue Eyes: no blind spots and no diplopia Ear, Nose, Mouth, Throat: no hearing loss Respiratory: no cough and no dyspnea Cardiovascular: no chest pain and no palpitations Gastrointestinal: no nausea and no vomiting Genitourinary: no urinary incontinence Musculoskeletal: no myalgia Integumentary: no rash and no lesions Neurologic: as per Subjective / HPI, + abnormal speech and + confusion; no localized weakness, no loss of sensation, no seizure-like activity, no headache(s) and no memory loss Psychiatric: no depression and no anxiety Hematologic / Lymphatic: no easy bleeding and no easy bruising Physical Exam Physical Exam: The patient is a well-developed, well-nourished elderly male. He is alert and fully oriented. Recent and remote memory intact. Attention and concentration normal. Patient exhibits a normal spontaneous speech pattern. He is able to name objects and repeat phrases. Patient exhibits an age- appropriate fund of knowledge and normal comprehension of vocabulary. Visual estrada full to confrontation. Visual acuity normal. Pupils equal round reactive to light and accommodation. Eye movements normal. There is no nystagmus, ptosis, or ophthalmoplegia. Facial sensation intact. There is no facial droop or weakness. Hearing intact. Palate elevates to midline. Shoulder shrug intact. Tongue protrudes to midline. Sensation intact to all modalities in all 4 limbs. Deep tendon reflexes are intact and symmetrical for the arms and legs bilaterally. Plantar responses downgoing bilaterally. There is no dysdiadochokinesia or dysmetria [id number] or [id number] bilaterally. Ophthalmoscopic examination reveals normal-appearing optic disks and posterior segments. No papilledema or hemorrhages. Carotid pulses normal bilaterally, no bruits to auscultation. Gait and station normal. Patient exhibits normal muscle strength and tone for all 4 limbs. No atrophy. No abnormal movements observed. Results & Data Vital Signs (Past 12 Hours) Vital Signs Temp Pulse Pulse Resp BP BP Pulse Ox 03/04/19 08:00 36.7 C 50 L 20 183/81 H 95 03/04/19 02:56 36.4 C L 55 L 18 149/74 H 94 03/03/19 23:53 36.4 C L 58 L 18 144/79 H 94 03/03/19 23:49 72 Laboratory Results WBC 4.72, hemoglobin 15.9, hematocrit 46.5, platelet count 163, sodium 139, potassium 3.9, BUN 15, creatinine 1.04, glucose 103, hemoglobin A1c 6.5, triglycerides 133, cholesterol 167, LDL 101, VLDL 27, HDL [address] of the head completed yesterday is negative for hemorrhage or acute process. There is chronic right frontal encephalomalacia, stable postoperative change. There is a chronic unchanged 1.4 cm hypodensity within the anterior limb of the left internal capsule and basal ganglia likely consistent with a remote infarct. No change compared with November 2016 study. I reviewed the images as well as the radiologist interpretation of this test. A CTA of the head and neck reveals a multifocal high-grade stenosis versus occlusion within the proximal right M2 segment and associated distal reconstitution. There is an approximate 70 to 80% focal stenosis within the proximal left internal carotid artery and a 40% focal stenosis within the proximal right internal carotid artery. MRI of the brain negative for acute infarct. Postoperative changes within the right frontal lobe again observed. No hemorrhage. The chronic lacunar infarct within the left basal ganglia again observed. I reviewed the images as well as the radiologist interpretation of this test. Electrocardiogram reveals a sinus rhythm with first-degree AV block, 61 bpm.
[2019-03-04 15:33] VITALS: BP 191/89; PULSE 66; TEMP 97.5; O2SAT 93
--- NOTE | 2019-03-04 16:33 | Consultation ---
Date of Consultation March 04, 2019 Assessment & Plan (1) Carotid stenosis: Pt known to Dr Nguyen for carotid stenosis surveillance. Discussed with Dr Nguyen, recommends pt have L CEA in OR on 03/08/19. Pt and agreeable. Pt to remain on plavix. OK for d/c from vascular standpoint until procedure on Friday. Please call if needed. Laterality: unspecified laterality Qualified Code(s): I65.29 - Occlusion and stenosis of unspecified carotid artery History of Present Illness Reason for Consultation: LICAS with TIA Attending Physician: Rebel Schwartz DO History of Present Illness 83 yo m with hx of meningioma removal, HTN, SOO, DMII, seizures, hyperlipidemia, PAD, known to Dr Nguyen for ICAS, admitted with TIA sx yesterday and found to have LICAS of 70-80%, seen in consultation today. Pt's states he was confused and having difficulty word finding and slurring his speech yesterday, so she called the ambulance. 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 These sx were also different from his seizure sx, according to . Pt denies any associated PARRY or extremity weakness. There is a question of L facial droop, but pt/ are not sure whether that actually occurred. Denies fever, chills, chest pain, SOB, abd pain, N/V, rest pain, claudication, other complaints. All sx resolved yesterday. CTA neck demonstrates LICAS of 70-80%. Allergies Allergy/AdvReac Type Severity Reaction Status Date / Time levofloxacin AdvReac Intermediate DIFFICULTY Verified 03/03/19 13:36 WALKING "LEGS FROZE UP" lisinopril AdvReac Intermediate UPSET Verified 03/03/19 13:36 STOMACH AND DIZZINESS Home Medications Home Medications Medication Instructions Recorded Confirmed Type Humulin N NPH Insulin KwikPen 10 - 14 unit SUBCUT HS 02/20/18 03/03/19 History amlodipine [Norvasc] 5 mg PO BID 02/20/18 03/03/19 History aspirin 81 mg PO QAM 02/20/18 03/03/19 History atenolol 50 mg PO QAM 02/20/18 03/03/19 History atorvastatin 80 mg PO HS 02/20/18 03/03/19 History cholecalciferol (vitamin D3) 2,000 unit PO DAILY 02/20/18 03/03/19 History [Vitamin D3] cinnamon bark [Cinnamon] 1,000 mg PO DAILY 02/20/18 03/03/19 History cyanocobalamin (vitamin B-12) 1,000 mcg PO QAM 02/20/18 03/03/19 History docusate sodium 100 mg PO HS 02/20/18 03/03/19 History fluticasone propion-salmeterol 1 puff INHALATION BID 02/20/18 03/03/19 History [Advair Diskus] gabapentin 100 mg PO HS 02/20/18 03/03/19 History insulin lispro [Humalog KwikPen 3 - 5 unit SUBCUT AC 02/20/18 03/03/19 History Insulin] levetiracetam [Keppra] 1,000 mg PO BID 02/20/18 03/03/19 History losartan [Cozaar] 100 mg PO QAM 02/20/18 03/03/19 History mometasone 2 spray INTRANASAL DAILY 02/20/18 03/03/19 History multivitamin 1 tab PO QAM 02/20/18 03/03/19 History nitroglycerin 1 tab SUBLINGUAL UD PRN 02/20/18 03/03/19 History omega 0-qzy-lcp-fish oil [Fish Oil] 1 cap PO DAILY 02/20/18 03/03/19 History ranitidine HCl [Zantac] 150 mg PO HS 10/07/18 03/03/19 History chlorthalidone 25 mg tablet 12.5 mg PO DAILY #30 tab 11/12/18 03/03/19 History coenzyme Q10 100 mg capsule 200 mg PO DAILY cap 11/12/18 03/03/19 History Patient History Medical History Dizziness Generalized convulsive seizure Obstructive sleep apnea Actinic keratosis (Acute) Aneurysm of right leg (Acute) Asthma (Acute) Bronchiectasis (Acute) Carpal tunnel syndrome, bilateral (Acute) Chronic asthmatic bronchitis (Acute) Chronic sinusitis (Acute) Complex partial seizure (Acute) Controlled type 2 diabetes mellitus, with long-term current use of insulin (Acute) GERD without esophagitis (Acute) Hemorrhoids (Acute) Interstitial lung disease (Acute) Lumbar spinal stenosis (Acute) Lumbosacral radiculopathy (Acute) Lung nodule (Acute) Male erectile disorder of organic origin (Acute) Mild cognitive impairment (Acute) Paresthesias (Acute) Peripheral arterial occlusive disease (Acute) Seizure disorder (Acute) Uncontrolled hypertension (Acute) Vitamin D deficiency (Acute) Cancer PROSTATE CA - 10 YEARS AGO - TREATED W/ RADIOACTIVE SEED IMPLANTS Chronic back pain Chronic bronchitis Claudication of right lower extremity Diabetes mellitus, type 2 IDDM GERD (gastroesophageal reflux disease) History of tooth extraction Hyperlipidemia Hypertension Myocardial Infarction "SILENT [place]" -- "MANY, MANY YEARS AGO" (COULD NOT RECALL) - CARDIAC CATH - DR. DUPONT AT [facility] [place] NO STENTS/ANGIOPLASTY. Osteoarthritis Sciatica Seizure POST MENINGIOMA SURGERY - ON ORAL MED - LAST 2013 - FOLLOWS W/ DR. PERLA Surgical History H/O sinus surgery History of cataract surgery History of colonoscopy History of herniorrhaphy History of surgery REMOVAL OF MENINGIOMA (BENIGN) - [address] [facility] [address] 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 Beliefs That Will Affect Care: None Current Living Situation: Spouse Feels Safe at Home: Yes Smoking Status: Never smoker Tobacco Type: cigarettes ; Cigarettes Per Day: QUIT 35 YEARS AGO ; Second Hand Exposure: No ; Hx Alcohol Use: Yes Alcohol type: hard liquor Hx Substance Use: No Review of Systems Review of Systems: All systems reviewed & are unremarkable except as noted in HPI & below Physical Exam Constitutional: WD/WN, vitals as above well developed, well nourished, healthy appearing, well groomed, cooperative and comfortable; not in distress Eyes: PERRL, conjunctivae normal, anicteric sclerae EOM intact bilaterally ENMT: external ear and nose normal, oropharynx normal Nose: no nasal discharge Neck: no tracheal deviation, no neck crepitus and neck nontender Respiratory: normal respiratory effort, lungs clear to auscultation able to speak in complete sentences; does not use accessory muscles and no cough Auscultation: lungs clear to auscultation bilaterally and + diminished lung sounds Cardiovascular: RRR, no murmur, no edema Heart Sounds: no gallop and no murmur Vessels: femoral pulses present, posterior tibial pulses present, dorsalis pedis pulses present and radial pulses present; no femoral bruit and + abnormal peripheral pulses Extremities: normal capillary refill; no edema Gastrointestinal (Abdomen): normal bowel sounds, soft, nontender, no hepatosplenomegaly Inspection/Auscultation: abdomen normal to inspection and normal bowel sounds; abdomen not distended Percussion/Palpation: abdomen soft; abdomen nontender, no guarding and abdomen not rigid Musculoskeletal: no cyanosis or clubbing, extremities motor strength 5/5 Head/Neck/Chest: normocephalic, head atraumatic and neck supple Extremities: extremities normal to inspection and strength 5/5 throughout; full ROM of extremities Skin: no rashes, warm and dry turgor not decreased, no rashes, no lesions, no ulcers, no erythema, no eschar, no excoriations and no mottling Neurologic: moves all extremities and awake; no focal motor deficits and not confused Speech / Cognition: no expressive aphasia and no receptive aphasia Motor/Sensory: no tremor, no pronator drift and no sensory deficit Cranial Nerves: EOM intact bilaterally, normal facial strength and tongue midline Psychiatric: Orientation: alert, oriented x 3 and cooperative Apperance: appropriately dressed, appropriately groomed and appeared stated age Affect: euthymic affect Thought Process: goal directed thought process, linear/logical thought process and clear/coherent thought process Cognition: recent memory grossly intact, remote memory grossly intact, attention grossly intact and language grossly intact Estimated Intelligence: average estimated intelligence Results & Data Vital Signs (Past 12 Hours) Vital Signs Temp Pulse Resp BP BP Pulse Ox 03/04/19 15:31 36.4 C L 66 20 191/89 H 93 03/04/19 12:13 36.5 C 64 20 160/85 H 94 03/04/19 08:00 36.7 C 50 L 20 183/81 H 95
[2019-03-04] MEDS ORDERED: STROKE PATIENT DISCHARGE STA (16:54)
--- NOTE | 2019-03-04 18:13 | Discharge Summary ---
Date of Service March 04, 2019 Admission HPI Per Admitting Provider 83-year-old male with a past medical history of meningioma status post resection in 2012, subsequent seizures, T2DM, HLD, HTN, CAD, PAD, asthma, lumbar radiculopathy presents to [facility] after experiencing confusion and speech issues this morning. Symptoms began around 1130 this morning when he was watching TV. He stated that he had trouble expressing and articulating words. He had normal thought processes and remembers the episode clearly. The symptoms were present, but improving on arrival to the hospital. In addition to word finding, the patient also had some slurred speech noted by his . She also states that he also seemed confused. While he denies a history of stroke or TIA, his states that when he had seizures following his meningioma resection, he had symptoms of confusion. She also expresses that he had tonic-clonic features with those seizures. The patient is a insulin-dependent diabetic. He reports hypoglycemic episodes in the past with similar symptoms of confusion. Patient denies recent illness or dehydration. Patient denies chest pain, shortness of breath. He denies focal neuro deficitsno unilateral weakness or loss of sensation. The patient has a history of resistant hypertension, but the family states that his pressures have been well controlled. Today's pressures were elevated in the emergency room. He reports heart catheterization over 20 years ago which showed CAD, with good collateral circulation Principal Diagnosis TIA Uncontrolled hypertension Carotid artery stenosis Discharge Exam In general he is awake and alert pleasant no distress. HEENT normocephalic atraumatic mucous membranes moist. Breathing unlabored no accessory muscle use good effort. No focal neuro deficits, no facial droop and his speech is fluent. See neurology exam otherwise. Discharge Data Allergies Allergy/AdvReac Type Severity Reaction Status Date / Time levofloxacin AdvReac Intermediate DIFFICULTY Verified 03/03/19 13:36 WALKING "LEGS FROZE UP" lisinopril AdvReac Intermediate UPSET Verified 03/03/19 13:36 STOMACH AND DIZZINESS Consultations 03/03/19 14:01 ED Decision to Admit Stat 03/03/19 17:56 Consult Case Management - Discharge Planning Routine Consult Neurology Routine 03/04/19 10:08 Consult Vascular Surgery Routine 03/04/19 10:24 Consult Vascular Surgery Routine 03/04/19 10:40 Burn CD for patient Stat Procedures Performed Operation Date: 03/08/19 07:30 <No data on this case meets the specified criteria> Ordered Studies 03/03/19 12:40 CT angio head w con Stat CT angio neck with con Stat CT head/brain wo con Stat 03/03/19 17:56 MR brain wo con Stat Hospital Course (1) TIA (transient ischemic attack): Difficulty with word finding and possible facial droopall improved. -Stable for discharge to home -Carotid stenosis as a possible culprit, for endarterectomy early next week -Given large vessel disease cerebrovascular event while on aspirin, will follow the evidence that would suggest that a 30-day overlap of aspirin plus Plavix followed by transition to Plavix alone, would fit his situation -Lipids are suppressed as we can benefit him by doing given that he is already on 80 of atorvastatin -Sugars have overall shown good control and his A1c is 6.5 -Blood pressure requires better controlthis will be an ongoing titrationfor now we transitioned his atenolol to carvedilol, can titrate up as needed, and he also is aware he may need additional agents -Stable for home otherwise (2) Carotid stenosis: (3) Intracranial carotid stenosis: (4) Lumbar spinal stenosis: (5) Lung nodule: (6) Seizure disorder: Neurology suggested we increase his home dosing of Keppra to 1250mg bid (7) CAD (coronary artery disease): (8) Hyperlipidemia: (9) Diabetes: (10) Asthma: (11) HTN (hypertension): Total Time Total Time Spent Total Time Spent (In Minutes): Greater than 30 Discharge Plan Discharge Items Patient Disposition: Home - Self-Care Reason For Visit: STROKE LIKE SYMPTOMS Discharge Diagnosis: TIA (see below) Activity: Resume your previous activity Non-emergency contact: Primary Care Provider Call non-emergency contact if: you have any medication questions and your symptoms worsen Follow-up/Referrals: Chon Stevens MD [Physician] - (Please, follow up at [facility] Neurology Office. *A nurse from this office will call you with the appointment information. The office is located at [facility] in [place]. If you have any questions, call the office at [phone].) Max Storm [Primary Care Provider] - 03/09/19 10:30 am (Please, follow up with Dr. Storm on FridayMarch 09 at 10:30 am. *If you need to change this appointment, call the office at [phone].) Hakan Rajput MD [Physician] - (Please, follow up with Dr. Hakan Rajput (vascular surgeon). *A nurse from his office will call you with the appointment information. The office is located at [address] [place] [address] in [place] (next to [facility]). If you have any questions, call the office at [phone].) Diet: Heart Healthy Addtl Attending Provider Instructions: TIA -a TIA stands for "transient ischemic attack" --- which is when there's a relative lack of blood flow to part of your brain, but before there's any or damaged tissue from the lack of blood flow, your body restores things and your symptoms improve -the goal in medical treatment after a TIA is to take every step possible to prevent a true stroke from happening -in your case the measures are to change the aspirin to plavix (after a period of overlap, see below), to work on better blood pressure control, and to have Dr Rajput open up the blocked carotid artery blood thinners: -in a situation like yours, where you've had a TIA already on aspirin, we'll have you take both aspirin and plavix for a month, and then stop the aspirin and have you indefinitely on the plavix. being on both terminal carman is more risk of bleed than benefit, but for the short term when the conditions that led to the TIA are still all present, there's usually more benefit. talking with Aida England, she said to stay on medicines right up to the day of surgery; they'll guide you on when to resume afterwards (but usually with vascular surgery they keep you on the blood thinners throughout the process) hypertension -even here in the hospital your blood pressures have been quite high, despite medication changes to make things improve. some of it is likely to improve simply from getting out of the hospital (being here, and the stress of being here, will frequently raise blood pressure significantly, and simply leaving the hospital will improve things), and some of it is probably from the TIA (when our brain sees a lack of blood flow, it increases hormones to increase pressure to keep good flow going to the brain - this typically lets off over a short time period though) -for now, we're stopping your atenolol and substituting carvedilol (similar for the heart, but carvedilol will usually help drop blood pressures more) -- we'll have you take 6.25mg twice a day for the time being, and follow your pulse and blood pressure 2-3 times a day (random times to get a good array of how you usually run) -- your PCP will then be able to guide on further increases in the carvedilol dose versus needing to add yet another blood pressure medication -the carvedilol is twice a day (while the atenolol was just once) -- please take your next dose of it tonight -as we discussed, the computer med list was in error as it relates to the one blood pressure medicine - chlorthalidone - it was something that you noted you stopped about 2 months ago; so we had to click to stop it in the computer since you already had stopped it carotid blockage -Dr Rajput has you scheduled to get this fixed on Friday; follow his/Aida's instructions further in this regard Dr Stevens wanted you to increase the keppra to 1250mg twice a day if you have a recurrence of your symptoms, we'd want you back here right away -- so if you have worsening facial droop/difficulty with word finding, or any numbness/weakness to half of your body - please come right back to the hospital Pending Studies at Discharge: No Stand-Alone Forms: My [facility] Medications and DC Order Prescriptions: New carvedilol 6.25 mg Tablet 6.25 mg PO BID Qty: 60 RF: 0 clopidogrel 75 mg Tablet 75 mg PO QAM Qty: 30 RF: 0 levetiracetam [Keppra] 250 mg tablet 250 mg PO BID Qty: 60 RF: 0 Continued coenzyme Q10 100 mg capsule 200 mg PO DAILY RF: 0 multivitamin Tablet 1 tab PO QAM RF: 0 atorvastatin 80 mg Tablet 80 mg PO HS RF: 0 amlodipine [Norvasc] 5 mg Tablet 5 mg PO BID RF: 0 aspirin 81 mg Tablet,Delayed Release (Dr/Ec) 81 mg PO QAM RF: 0 nitroglycerin 0.4 mg Tablet, Sublingual 1 tab Sublingual UD PRN (Reason: Chest Pain) RF: 0 docusate sodium 100 mg Capsule 100 mg PO HS RF: 0 mometasone 50 mcg/actuation Belle,Non-Aerosol 2 spray INTRANASAL DAILY RF: 0 gabapentin 100 mg Capsule 100 mg PO HS RF: 0 fluticasone propion-salmeterol [Advair Diskus] 100-50 mcg/dose Blister With Device 1 puff INHALATION BID RF: 0 losartan [Cozaar] 100 mg Tablet 100 mg PO QAM RF: 0 insulin lispro [Humalog KwikPen Insulin] 100 unit/mL Insulin Pen 3 - 5 unit SUBCUT AC RF: 0 Humulin N NPH Insulin KwikPen 100 unit/mL (3 mL) Insulin Pen 10 - 14 unit SUBCUT HS RF: 0 cinnamon bark [Cinnamon] 500 mg Capsule 1,000 mg PO DAILY RF: 0 levetiracetam [Keppra] 1,000 mg Tablet 1,000 mg PO BID RF: 0 cholecalciferol (vitamin D3) [Vitamin D3] 2,000 unit Capsule 2,000 unit PO DAILY RF: 0 omega 3-nul-wtm-fish oil [Fish Oil] 1,000 mg (120 mg-180 mg) Capsule 1 cap PO DAILY RF: 0 cyanocobalamin (vitamin B-12) 1,000 mcg Capsule 1,000 mcg PO QAM RF: 0 ranitidine HCl [Zantac] 150 mg Tablet 150 mg PO HS RF: 0 Discontinued chlorthalidone 25 mg tablet 12.5 mg PO DAILY Qty: 30 RF: 0 atenolol 50 mg Tablet 50 mg PO QAM RF: 0 Discharge Orders: Discharge Order (Routine); Ordered 03/04/19 Ordered By: Rebel Schwartz Admission Data Admit Date/Time: 03/03/19 16:21 Attending Provider: Rebel Schwartz Admit Provider: Mars Avitia Primary Care Provider: Max Storm Other Providers: Stefan Paulson ; Chon Stevens ; Hakan Rajput Other Interventions: Discharge Summary Assessment (RN) Last Done: 03/04/19 16:58 DC Date/Time DO NOT enter until pt leaves facility: 03/04/19 17:54
[2019-03-04] MEDS ORDERED: ENOXAPARIN INJ 40 MG/0.4 ML SYR SQ SCH (19:00)
[2019-03-04] MEDS ORDERED: levETIRAcetam 250 MG TAB PO SCH (21:00)
== END 2019-03-04 17:54 | disposition home or self-care (01) | DRG 69 ==
LOC: ED 12:38 → 2S 16:21

== ENCOUNTER 2019-03-08 05:40 | Inpatient (IN) ==
--- NOTE | 2019-03-05 13:35 | Anesthesiology Consultation ---
Date of Service March 05, 2019 Assessment & Plan (1) Encounter for pre-operative examination: Chart Review Chart Review: Acceptable Risk for Surgery and Patient NOT seen in Pre Admission Testing Consults Requested none History Surgery Operation Date: 03/08/19 07:30 Proposed Procedures p Left Carotid Endarterectomy - Hakan Rajput MD Height/Weight Height: 5 ft 7 in Weight: 81.647 kg Allergies Allergy/AdvReac Type Severity Reaction Status Date / Time levofloxacin AdvReac Intermediate DIFFICULTY Verified 03/05/19 13:02 WALKING "LEGS FROZE UP" lisinopril AdvReac Intermediate UPSET Verified 03/05/19 13:02 STOMACH AND DIZZINESS Medications Home Medications Medication Instructions Recorded Confirmed Last Taken Humulin N NPH Insulin KwikPen 10 - 14 unit SUBCUT 02/20/18 03/05/19 03/02/19 amlodipine [Norvasc] 5 mg PO BID 02/20/18 03/05/19 03/03/19 aspirin 81 mg PO QAM 02/20/18 03/05/19 03/03/19 atorvastatin 80 mg PO HS 02/20/18 03/05/19 03/02/19 cholecalciferol (vitamin D3) 2,000 unit PO DAILY 02/20/18 03/05/19 03/02/19 [Vitamin D3] cinnamon bark [Cinnamon] 1,000 mg PO DAILY 02/20/18 03/05/19 03/02/19 cyanocobalamin (vitamin B-12) 1,000 mcg PO QAM 02/20/18 03/05/19 03/03/19 docusate sodium 100 mg PO HS 02/20/18 03/05/19 03/02/19 fluticasone propion-salmeterol 1 puff INHALATION BID 02/20/18 03/05/19 03/02/19 [Advair Diskus] gabapentin 100 mg PO HS 02/20/18 03/05/19 03/02/19 insulin lispro [Humalog KwikPen 3 - 5 unit SUBCUT 02/20/18 03/05/19 03/03/19 Insulin] levetiracetam [Keppra] 1,000 mg PO BID 02/20/18 03/05/19 03/03/19 losartan [Cozaar] 100 mg PO QAM 02/20/18 03/05/1903/02/19 mometasone 2 spray INTRANASAL DAILY 02/20/18 03/05/19 03/02/19 multivitamin 1 tab PO QAM 02/20/18 03/05/19 03/02/19 nitroglycerin 1 tab SUBLINGUAL UD PRN 02/20/18 03/05/19 Unknown omega 0-yhb-rpv-fish oil [Fish Oil] 1 cap PO DAILY 02/20/18 03/05/19 03/02/19 coenzyme Q10 100 mg capsule 200 mg PO DAILY cap 11/12/18 03/05/19 03/03/19 carvedilol 6.25 mg PO BID #60 tab 03/04/19 03/05/19 Unknown clopidogrel 75 mg PO QAM #30 tab 03/04/19 03/05/19 Unknown levetiracetam [Keppra] 250 mg PO BID #60 tab 03/04/19 03/05/19 Unknown famotidine [Pepcid] 40 mg PO HS PRN 03/05/19 03/05/19 Unknown Past Medical History Medical History Obstructive sleep apnea no device Bronchiectasis (Acute) Chronic sinusitis (Acute) Lumbar spinal stenosis (Acute) Lumbosacral radiculopathy (Acute) Lung nodule (Acute) Paresthesias (Acute) Peripheral arterial occlusive disease (Acute) Vitamin D deficiency (Acute) Asthma Chronic bronchitis TIA (transient ischemic attack) hospitalized [facility] 03/03/19 Cancer PROSTATE CA - 10 YEARS AGO - TREATED W/ RADIOACTIVE SEED IMPLANTS Chronic back pain Claudication of right lower extremity Diabetes mellitus, type 2 IDDM GERD (gastroesophageal reflux disease) Hyperlipidemia Hypertension Myocardial Infarction "SILENT AK" -- "MANY, MANY YEARS AGO" (COULD NOT RECALL) - CARDIAC CATH - DR. DUPONT AT [facility] [place] - NO STENTS/ANGIOPLASTY. Osteoarthritis Sciatica Seizure POST MENINGIOMA SURGERY - ON ORAL MED - LAST 2013 - FOLLOWS W/ DR. PERLA Past Family History Family History Father Congestive heart failure Brother Colon cancer Stroke syndrome Past Surgical History Surgical History History of cardiac cath 30 years ago? [facility] [place] - no stents H/O sinus surgery History of cataract surgery History of colonoscopy History of herniorrhaphy History of surgery REMOVAL OF MENINGIOMA (BENIGN) - 2012 [facility] [address] EATON History of tooth extraction Social History Smoking Status: Former smoker tobacco type: cigarettes Smoking cigarettes per day: QUIT 35 YEARS AGO Do You Dip or Chew Tobacco: No Smoking End Date: quit 35 years ago Hx Alcohol Use: Yes Alcohol type: hard liquor alcohol intake frequency: 0-2 drinks per day Hx Substance Use: No substance use type: does not use Testing Laboratory Results Laboratory Tests 03/03/19 03/04/19 03/04/19 12:58 06:58 06:58 WBC 4.72 L Hgb 15.9 Hct 46.5 Plt Count 163 INR 1.1 Sodium 139 Potassium 3.9 BUN 15 Creatinine 1.04 Electrocardiogram Date: 03/03/19 Sinus rhythm with 1st degree A-V block Right bundle branch block Cannot rule out Inferior infarct , age undetermined Abnormal ECG When compared with ECG of 29-FEB-2016 06:44, Minimal criteria for Inferior infarct are now Present Confirmed by Benjamin Mark ([id number]) on 03/04/2019 5:55:24 AM Echocardiogram Date: 03/04/19 EF: 65 LV Function: normal RWMA: + none Valvular Disease: + no significant valvular disease
[2019-03-08] MEDS ORDERED: LR 15ML/HR IV SCH (06:00)
[2019-03-08] MEDS ORDERED: LACTATED RINGER'S 1,000 ML IV SCH (06:00)
[2019-03-08] MEDS ORDERED: HEPARIN (PORCINE) 1000 UNIT/ML 10 ML (CATH LAB USE ONLY) ONE (06:53)
[2019-03-08] MEDS ORDERED: CEFAZOLIN 250 MG/ML 1 GM VIAL ONE (06:54)
[2019-03-08] MEDS ORDERED: BUPIVACAINE/EPINEPHRINE 0.5% MPF 1:200,000 30 ML VIAL ONE (06:54)
[2019-03-08] MEDS ORDERED: GELATIN SPONGE SZ 100 ONE (06:54)
[2019-03-08] MEDS ORDERED: THROMBIN FOR SOLN 20000 UNIT KIT ONE (06:54)
[2019-03-08] MEDS ORDERED: LIDOCAINE HCL 1% 20 ML VIAL ONE (06:54)
[2019-03-08] MEDS ORDERED: LABETALOL HCL IV 5 MG/ML 20ML IV PRN (07:01)
[2019-03-08] MEDS ORDERED: ONDANSETRON INJ 2 MG/ML 2 ML VIAL IV PRN ×2 (07:01→14:53)
[2019-03-08] MEDS ORDERED: ATROPINE SULFATE 0.1 MG/ML 10ML SYR IV PRN (07:01)
[2019-03-08] MEDS ORDERED: ePHEDrine sulfate 50 MG/ML AMP IV PRN (07:01)
[2019-03-08] MEDS ORDERED: HYDROmorphone INJ 1 MG/ML SYRINGE IV PRN (07:01)
[2019-03-08] MEDS ORDERED: fentaNYL citrate 100 MCG/2 ML VIAL ONE ×3 (07:02→12:49)
[2019-03-08] MEDS ORDERED: LIDOCAINE 2% JELLY 5 ML TUBE ONE (07:06)
[2019-03-08] MEDS ORDERED: NITROGLYCERIN 5 MG/ML 10 ML VIAL ONE (07:06)
--- NOTE | 2019-03-08 07:38 | History & Physical Report ---
Date of Service March 08, 2019 History of Present Illness Primary Care Provider: Max Storm Assessment & Plan (1) Carotid stenosis: Pt known to Dr Nguyen for carotid stenosis surveillance. Discussed with Dr Nguyen, recommends pt have L CEA in OR on 03/08/19. Pt and agreeable. Pt to remain on plavix. OK for d/c from vascular standpoint until procedure on Friday. Please call if needed. Laterality: unspecified laterality Qualified Code(s): I65.29 - Occlusion and stenosis of unspecified carotid artery History of Present Illness Reason for Consultation: LICAS with TIA Attending Physician: Rebel Schwartz, History of Present Illness 83 yo m with hx of meningioma removal, HTN, SOO, DMII, seizures, hyperlipidemia, PAD, known to Dr Nguyen for ICAS, admitted with TIA sx yesterday and found to have LICAS of 70-80%, seen in consultation today. Pt's states he was confused and having difficulty word finding and slurring his speech yesterday, so she called the ambulance. 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 These sx were also different from his seizure sx, according to . Pt denies any associated PARRY or extremity weakness. There is a question of L facial droop, but pt/ are not sure whether that actually occurred. Denies fever, chills, chest pain, SOB, abd pain, N/V, rest pain, claudication, other complaints. All sx resolved yesterday. CTA neck demonstrates LICAS of 70-80%. Allergies Allergy/AdvReac Type Severity Reaction Status Date / Time levofloxacin AdvReac Intermediate DIFFICULTY Verified 03/03/19 13:36 WALKING "LEGS FROZE UP" lisinopril AdvReac Intermediate UPSET Verified 03/03/19 13:36 STOMACH AND DIZZINESS Home Medications Home Medications Medication Instructions Recorded Confirmed Type Humulin N NPH Insulin KwikPen 10 - 14 unit SUBCUT HS 02/20/18 03/03/19 History amlodipine [Norvasc] 5 mg PO BID 02/20/18 03/03/19 History aspirin 81 mg PO QAM 02/20/18 03/03/19 History atenolol 50 mg PO QAM 02/20/18 03/03/19 History atorvastatin 80 mg PO HS 02/20/18 03/03/19 History cholecalciferol (vitamin D3) 2,000 unit PO DAILY 02/20/18 03/03/19 History [Vitamin D3] cinnamon bark [Cinnamon] 1,000 mg PO DAILY 02/20/18 03/03/19 History cyanocobalamin (vitamin B-12) 1,000 mcg PO QAM 02/20/18 03/03/19 History docusate sodium 100 mg PO HS 02/20/18 03/03/19 History fluticasone propion-salmeterol 1 puff INHALATION BID 02/20/18 03/03/19 History [Advair Diskus] gabapentin 100 mg PO HS 02/20/18 03/03/19 History insulin lispro [Humalog KwikPen 3 - 5 unit SUBCUT AC 02/20/18 03/03/19 History Insulin] levetiracetam [Keppra] 1,000 mg PO BID 02/20/18 03/03/19 History losartan [Cozaar] 100 mg PO QAM 02/20/18 03/03/19 History mometasone 2 spray INTRANASAL DAILY 02/20/18 03/03/19 History multivitamin 1 tab PO QAM 02/20/18 03/03/19 History nitroglycerin 1 tab SUBLINGUAL UD PRN 02/20/18 03/03/19 History omega 0-bnn-kfj-fish oil [Fish Oil] 1 cap PO DAILY 02/20/18 03/03/19 History ranitidine HCl [Zantac] 150 mg PO HS 10/07/18 03/03/19 History chlorthalidone 25 mg tablet 12.5 mg PO DAILY #30 tab 11/12/18 03/03/19 History coenzyme Q10 100 mg capsule 200 mg PO DAILY cap 11/12/18 03/03/19 History Patient History Medical History Dizziness Generalized convulsive seizure Obstructive sleep apnea Actinic keratosis (Acute) Aneurysm of right leg (Acute) Asthma (Acute) Bronchiectasis (Acute) Carpal tunnel syndrome, bilateral (Acute) Chronic asthmatic bronchitis (Acute) Chronic sinusitis (Acute) Complex partial seizure (Acute) Controlled type 2 diabetes mellitus, with long-term current use of insulin (Acute) GERD without esophagitis (Acute) Hemorrhoids (Acute) Interstitial lung disease (Acute) Lumbar spinal stenosis (Acute) Lumbosacral radiculopathy (Acute) Lung nodule (Acute) Male erectile disorder of organic origin (Acute) Mild cognitive impairment (Acute) Paresthesias (Acute) Peripheral arterial occlusive disease (Acute) Seizure disorder (Acute) Uncontrolled hypertension (Acute) Vitamin D deficiency (Acute) Cancer PROSTATE CA - 10 YEARS AGO - TREATED W/ RADIOACTIVE SEED IMPLANTS Chronic back pain Chronic bronchitis Claudication of right lower extremity Diabetes mellitus, type 2 IDDM GERD (gastroesophageal reflux disease) History of tooth extraction Hyperlipidemia Hypertension Myocardial Infarction "SILENT TX" -- "MANY, MANY YEARS AGO" (COULD NOT RECALL) - CARDIAC CATH - DR. DUPONT AT [facility] [place] STENTS/ANGIOPLASTY. Osteoarthritis Sciatica Seizure POST MENINGIOMA SURGERY - ON ORAL MED - LAST 2013 - FOLLOWS W/ DR. PERLA Surgical History H/O sinus surgery History of cataract surgery History of colonoscopy History of herniorrhaphy History of surgery REMOVAL OF MENINGIOMA (BENIGN) - [address] [facility] [address] EATON Family History Father Congestive heart failure Brother Colon cancer Stroke syndrome Social History Preferred Language: Divehi Communication Ability: Effective Motor Equipment Lieutenant Required: No Beliefs That Will Affect Care: None Current Living Situation: Spouse Feels Safe at Home: Yes Smoking Status: Never smoker Tobacco Type: cigarettes ; Cigarettes Per Day: QUIT 35 YEARS AGO ; Second Hand Exposure: No ; Hx Alcohol Use: Yes Alcohol type: hard liquor Hx Substance Use: No Review of Systems Review of Systems: All systems reviewed & are unremarkable except as noted in HPI & below Physical Exam Constitutional: WD/WN, vitals as above well developed, well nourished, healthy appearing, well groomed, cooperative and comfortable; not in distress Eyes: PERRL, conjunctivae normal, anicteric sclerae EOM intact bilaterally ENMT: external ear and nose normal, oropharynx normal Nose: no nasal discharge Neck: no tracheal deviation, no neck crepitus and neck nontender Respiratory: normal respiratory effort, lungs clear to auscultation able to speak in complete sentences; does not use accessory muscles and no cough Auscultation: lungs clear to auscultation bilaterally and + diminished lung sounds Cardiovascular: RRR, no murmur, no edema Heart Sounds: no gallop and no murmur Vessels: femoral pulses present, posterior tibial pulses present, dorsalis pedis pulses present and radial pulses present; no femoral bruit and + abnormal peripheral pulses Extremities: normal capillary refill; no edema Gastrointestinal (Abdomen): normal bowel sounds, soft, nontender, no hepatosplenomegaly Inspection/Auscultation: abdomen normal to inspection and normal bowel sounds; abdomen not distended Percussion/Palpation: abdomen soft; abdomen nontender, no guarding and abdomen not rigid Musculoskeletal: no cyanosis or clubbing, extremities motor strength 5/5 Head/Neck/Chest: normocephalic, head atraumatic and neck supple Extremities: extremities normal to inspection and strength 5/5 throughout; full ROM of extremities Skin: no rashes, warm and dry turgor not decreased, no rashes, no lesions, no ulcers, no erythema, no eschar, no excoriations and no mottling Neurologic: moves all extremities and awake; no focal motor deficits and not confused Speech / Cognition: no expressive aphasia and no receptive aphasia Motor/Sensory: no tremor, no pronator drift and no sensory deficit Cranial Nerves: EOM intact bilaterally, normal facial strength and tongue midline Psychiatric: Orientation: alert, oriented x 3 and cooperative Apperance: appropriately dressed, appropriately groomed and appeared stated age Affect: euthymic affect Thought Process: goal directed thought process, linear/logical thought process and clear/coherent thought process Cognition: recent memory grossly intact, remote memory grossly intact, attention grossly intact and language grossly intact Estimated Intelligence: average estimated intelligence Results & Data Vital Signs (Past 12 Hours) Vital Signs Temp Pulse Resp BP BP Pulse Ox 03/04/19 15:31 36.4 C L 66 20 191/89 H 93 03/04/19 12:13 36.5 C 64 20 160/85 H 94 03/04/19 08:00 36.7 C 50 L 20 183/81 H 95 Signed By:<Electronically signed by Aida Guzman PA-C>03/04/19 1640 <Electronically signed by Hakan Nguyen MD>03/05/19 1451 Created: 03/04/19 1627 Allergies Allergy/AdvReac Type Severity Reaction Status Date / Time levofloxacin AdvReac Intermediate DIFFICULTY Verified 03/08/19 05:57 WALKING "LEGS FROZE UP" lisinopril AdvReac Intermediate UPSET Verified 03/08/19 05:57 STOMACH AND DIZZINESS Home Medications Home Medications Medication Instructions Recorded Confirmed Type Humulin N NPH Insulin KwikPen 10 - 14 unit SUBCUT HS 02/20/18 03/08/19 History amlodipine [Norvasc] 5 mg PO BID 02/20/18 03/08/19 History aspirin 81 mg PO QAM 02/20/18 03/08/19 History atorvastatin 80 mg PO HS 02/20/18 03/08/19 History cholecalciferol (vitamin D3) 2,000 unit PO DAILY 02/20/18 03/08/19 History [Vitamin D3] cinnamon bark [Cinnamon] 1,000 mg PO DAILY 02/20/18 03/08/19 History cyanocobalamin (vitamin B-12) 1,000 mcg PO QAM 02/20/18 03/08/19 History docusate sodium 100 mg PO HS 02/20/18 03/08/19 History fluticasone propion-salmeterol 1 puff INHALATION BID 02/20/18 03/08/19 History [Advair Diskus] gabapentin 100 mg PO HS 02/20/18 03/08/19 History insulin lispro [Humalog KwikPen 3 - 5 unit SUBCUT AC 02/20/18 03/08/19 History Insulin] levetiracetam [Keppra] 1,000 mg PO BID 02/20/18 03/08/19 History losartan [Cozaar] 100 mg PO QAM 02/20/18 03/08/19 History mometasone 2 spray INTRANASAL DAILY 02/20/18 03/08/19 History multivitamin 1 tab PO QAM 02/20/18 03/08/19 History nitroglycerin 1 tab SUBLINGUAL UD PRN 02/20/18 03/08/19 History omega 2-obk-zwy-fish oil [Fish Oil] 1 cap PO DAILY 02/20/18 03/08/19 History coenzyme Q10 100 mg capsule 200 mg PO DAILY cap 11/12/18 03/08/19 History carvedilol 6.25 mg PO BID #60 tab 03/04/19 03/08/19 Rx clopidogrel 75 mg PO QAM #30 tab 03/04/19 03/08/19 Rx levetiracetam [Keppra] 250 mg PO BID #60 tab 03/04/19 03/08/19 Rx famotidine [Pepcid] 40 mg PO HS PRN 03/05/19 03/08/19 History Past Med/Surg History Medical History Obstructive sleep apnea no device Bronchiectasis (Acute) Chronic sinusitis (Acute) Lumbar spinal stenosis (Acute) Lumbosacral radiculopathy (Acute) Lung nodule (Acute) Paresthesias (Acute) Peripheral arterial occlusive disease (Acute) Vitamin D deficiency (Acute) Asthma Chronic bronchitis TIA (transient ischemic attack) hospitalized [facility] 03/03/19 Cancer PROSTATE CA - 10 YEARS AGO - TREATED W/ RADIOACTIVE SEED IMPLANTS Chronic back pain Claudication of right lower extremity Diabetes mellitus, type 2 IDDM GERD (gastroesophageal reflux disease) Hyperlipidemia Hypertension Myocardial Infarction "SILENT TX" -- "MANY, MANY YEARS AGO" (COULD NOT RECALL) - CARDIAC CATH - DR. DUPONT AT [facility] [place] - NO STENTS/ANGIOPLASTY. Osteoarthritis Sciatica Seizure POST MENINGIOMA SURGERY - ON ORAL MED - LAST 2013 - FOLLOWS W/ DR. PERLA Surgical History History of cardiac cath 30 years ago? [facility] [place] - no stents H/O sinus surgery History of cataract surgery History of colonoscopy History of herniorrhaphy History of surgery REMOVAL OF MENINGIOMA (BENIGN) - [address] [facility] [address] EATON History of tooth extraction Family History Father Congestive heart failure Brother Colon cancer Stroke syndrome Social History Preferred Language: Divehi Communication Ability: Effective Motor Equipment Lieutenant Required: No Beliefs That Will Affect Care: None Current Living Situation: Spouse Other Information That Helps Us Care for You: No Feels Safe at Home: Yes Safety Concerns: Feels Safe At This Time Smoking Status: Former smoker Tobacco Type: cigarettes ; Cigarettes Per Day: QUIT 35 YEARS AGO ; Do You Dip or Chew Tobacco: No ; Smoking End Date: quit 35 years ago ; Second Hand Exposure: No ; Tobacco Cessation Education Requested by Patient: No Hx Alcohol Use: Yes Alcohol type: hard liquor Hx Substance Use: No Results & Data Vital Signs (Past 12 Hours) Vital Signs Temp Pulse Resp BP BP Pulse Ox 03/08/19 06:10 36.5 C 70 18 178/88 H 162/83 H 96
[2019-03-08] MEDS ORDERED: CEFAZOLIN 2000MG 2,000 MG/15 ML SYR IV SCH (08:30)
--- NOTE | 2019-03-08 09:09 | History & Physical Bridge Note ---
Date of Service March 08, 2019 History & Physical Bridge Note Patient for a left carotid endarterectomy. I have discussed the risks options and benefits of the procedure with the patient. The patient understands the risks options and benefits and agrees to the procedure. I have examined the patient, reviewed the History & Physical and in the interval since the performance of the History & Physical I have noted the following changes of clinical significance: no changes noted
[2019-03-08] MEDS ORDERED: ePHEDrine sulfate 50 MG/ML SYR ONE (10:12)
[2019-03-08] MEDS ORDERED: ROCURONIUM BROMIDE 10 MG/ML 5 ML VIAL ONE (10:12)
[2019-03-08] MEDS ORDERED: LIDOCAINE 2% 20 MG/ML 5 ML SYR IV ONE (10:12)
[2019-03-08] MEDS ORDERED: PROPOFOL IV EMULSION 10 MG/ML 20 ML VIAL IV ONE (10:12)
[2019-03-08] MEDS ORDERED: NEOSTIGMINE METHYLSULFATE 5 MG/5 ML SYR ONE (10:13)
[2019-03-08] MEDS ORDERED: HEPARIN SOD (PORCINE) 1000 UNIT/ML 10 ML VIAL ONE (10:13)
[2019-03-08] MEDS ORDERED: ONDANSETRON INJ 2 MG/ML 2 ML VIAL ONE ×2 (10:13→11:59)
[2019-03-08] MEDS ORDERED: GLYCOPYRROLATE 0.2 MG/ML VIAL ONE (10:13)
--- NOTE | 2019-03-08 11:46 | Post Operative Brief Note ---
Immediate Post Op Note v1 Date of Surgery March 08, 2019 Pre & Post Diagnosis Operation Date: 03/08/19 07:30 Pre-Op Diagnosis: CAROTID STENOSIS Post-Op Diagnosis: CAROTID STENOSIS Procedure Operation Date: 03/08/19 07:30 Actual Procedures p Left Carotid Endarterectomy with Bovine Patch(Left) - Hakan Rajput MD Surgeon Hakan Rajput MD Cytometry Technologist MD Kourtney Estimated Blood Loss 180 Findings Consistent with Post-Op Diagnosis Anesthesia Type General Complications none Disposition Accompanied Patient To Recovery: No Disposition: Recovery Room
--- NOTE | 2019-03-08 12:27 | Operative Report ---
Post Operative Report Pre & Post Diagnosis Operation Date: 03/08/19 07:30 Pre-Op Diagnosis: CAROTID STENOSIS Post-Op Diagnosis: CAROTID STENOSIS Procedure Operation Date: 03/08/19 07:30 Actual Procedures p Left Carotid Endarterectomy with Bovine Patch(Left) - Hakan Rajput MD Surgeon Dr. Hakan Smith MD Supervisor Type Bar And Segment MD Kourtney Estimated Blood Loss 180 Findings See Below Patient had a ulcerated plaque with a hemorrhage. Specimens Left carotid plaque Drains None Anesthesia Type General Complications none Disposition Accompanied Patient To Recovery: Yes Disposition: Recovery Room Indications Left symptomatic carotid artery stenosis Description of Procedure The patient was brought to the operating room and correctly identified, where an arterial line was placed and general anesthesia was secured. The left neck was prepped and sterilely draped. An oblique incision was made along the anterior border of the right sternocleidomastoid muscle. The platysma was divided and dissection was carried down to the carotid sheath. The facial vein was doubly ligated and divided exposing the carotid bifurcation. The vagus nerve and XII nerve were identified and kept free from dissection and retraction. The internal, external, and common carotid arteries were dissected free proximally and distally. 7000 U of Heparin was given intravenously. The external carotid as well as superior thyroid vessels were encircled with vessel loops. Once the heparin was allowed to circulate for approximately 5 minutes, clamps were placed starting with the internal carotid and common carotid and external carotid. An anterior arteriotomy was made on the common carotid artery using an 11 blade. Toledo scissors was used to extend the arteriotomy through the plaque on to the distal soft internal carotid artery. The plaque was heavily calcified, ulcerated, and nearly occlusive. A shunt was then inserted into the into the internal carotid artery and revealed good backbleeding. The proximal end of the shunt was then inserted into the common carotid artery and secured in place. The Doppler attached to the shunt was turned on and revealed good flow through the shunt. A Wynne elevator was used to create an endarterectomy plane. The proximal endpoint was created using Toledo scissors as well as a distal endpoint was created with the Toledo scissors. The plaque was freed out of the external carotid artery.With downward retraction on the plaque, a smooth distal endpoint was created. All debris was meticulously debrided from the inside of the lumen and confirmed with instillation of heparinized saline. Once endarterectomy was completed, a bovine pericardial patch was then cut to the appropriate size and sewn into internal carotid artery using a PTFE 6-0 sutures starting at the internal carotid artery corner of the arteriotomy. Before the patch was completed, the shunt was pulled and all the arteries were backbleed extruding any air and debris. The patch was then completed. The external carotid clamp was removed first, followed by the common carotid artery clamp, and finally the internal carotid artery clamp, restoring blood flow to the brain. Patient did have some oozing and a 6-0 Prolene sutures were used to achieve hemostasis as well as thrombin soaked gel foam. Meticulous hemostasis was secured. The wound was then closed in multiple layers using 3-0 Vicryl suture then a 4-0 Vicryl subcutaneous layer closing the skin. Dermabond was applied over the incision. The patient tolerated the procedure well and was extubated on table. The patient was moving all four extremities to command prior to and upon transfer to the recovery room. Dr. Rajput was present and scrubbed for the entirety of the case. I attest to the content of the Intraoperative Record and any orders documented therein. Any exceptions are noted below.
[2019-03-08 12:56] LABS: Basophils # (auto) 0.01 K/uL (0-0.2); Basophils % (auto) 0.2 %; Eosinophils # (auto) 0.24 K/uL (0-0.5); Eosinophils % (auto) 5.6 %; Hematocrit (blood only) 38.5 % (42-52); Hemoglobin 13.4 g/dL (14.0-18.0); Immature Granulocytes # (auto) 0.03 K/uL (0.00-0.02); Immature Granulocytes % (auto) 0.7 %; Lymphocytes # (auto) 1.26 K/uL (1.2-3.4); Lymphocytes % (auto) 29.6 %; Mean Corpuscular Hemoglobin 32.1 pg (25-34); Mean Corpuscular Hgb Conc 34.8 g/dL (32-36); Mean Corpuscular Volume 92.3 fL (80-100); Monocytes % (auto) 11.8 %; Neutrophils # (auto) 2.21 K/uL (1.4-6.5); Neutrophils % (auto) 52.1 %; Platelet Count 142 K/uL (130-400); RDW Coefficient of Variation 13.1 % (11.5-14.5); RDW Standard Deviation 44.1 fL (36.4-46.3); Red Blood Count 4.17 M/uL (4.7-6.1); White Blood Count 4.25 K/uL (4.8-10.8)
[2019-03-08] MEDS: fentaNYL citrate 100 MCG/2 ML VIAL IV PRN ×2 (13:02→13:09)
[2019-03-08] MEDS ORDERED: ACETAMINOPHEN 1,000 MG/100 ML VIAL IV STA (13:53)
[2019-03-08] MEDS ORDERED: ACETAMINOPHEN 1000 MG/100 ML IV IV ONE (13:54)
--- NOTE | 2019-03-08 14:35 | Anesthesiology Progress Note ---
Date of Service March 08, 2019 Anesthesia Post Procedure Vital Signs Vital Signs: Temp Pulse Pulse Resp BP BP BP 03/08/19 14:05 61 18 108/51 L 102/57 L 03/08/19 13:50 57 L 21 101/60 103/53 L 03/08/19 13:40 58 L 21 109/56 L 108/56 L 03/08/19 13:30 59 L 20 114/57 L 116/57 L 03/08/19 13:20 36.4 C L 59 L 21 108/59 L 116/57 L 03/08/19 13:10 57 L 19 97/60 L 101/48 L 03/08/19 13:00 61 21 92/60 L 112/52 L 03/08/19 12:50 55 L 21 92/60 L 108/53 L 03/08/19 12:40 57 L 22 107/64 03/08/19 12:30 36.0 C L 66 20 120/67 03/08/19 06:10 36.5 C 70 18 178/88 H 162/83 H Pulse Ox 03/08/19 14:05 96 03/08/19 13:50 95 03/08/19 13:40 95 03/08/19 13:30 94 03/08/19 13:20 95 03/08/19 13:10 98 03/08/19 13:00 98 03/08/19 12:50 97 03/08/19 12:40 99 03/08/19 12:30 99 03/08/19 06:10 96 Pain Intensity Left Neck: Pain Intensity: 2 Transfer of Care Handoff Completed per policy Notes Mental Status: alert / awake / arousable and participated in evaluation Patient Amnestic to Procedure: Yes Nausea / Vomiting: adequately controlled Pain: adequately controlled Airway Patency, RR, SpO2: stable & adequate BP & HR: stable & adequate Hydration State: stable & adequate Anesthetic Complications: no major complications apparent and Pt Satisfied with anesthetic care Notes: slight mouth droop but tongue midline and bilateral strong upper and lower extremity strength. surgery aware and thought to be facial nerve block from local anesthesia
[2019-03-08] MEDS ORDERED: NITROGLYCERIN SL 0.4 MG/TAB TAB SL PRN (14:53)
[2019-03-08] MEDS ORDERED: OXYCODONE/ACETAMINOPHEN 5mg/325mg TAB PO PRN (14:53)
[2019-03-08] MEDS ORDERED: FAMOTIDINE 20 MG TAB PO PRN (14:53)
[2019-03-08] MEDS ORDERED: PHARMACY GLYCEMIC MGMT CONSULT PRN (15:05)
--- NOTE | 2019-03-08 15:22 | Pharmacy Report ---
Pharmacy Glycemic Short Note 2 - Date of Service March 08, 2019 - Glycemic Short BSG Results (Last 24 hours): 03/08/19 03/08/19 03/08/19 06:08 10:23 12:34 POC Glucose 150 H 112 H 117 H OUTPATIENT ANTIDIABETIC REGIMEN: * NPH 10-14 units SQ Q evening * Humalog 3-5 units SQ w/ meals * A1c = 6.5% 03/04/19 ASSESSMENT: * Well controlled type 2 diabetic admitted for carotid stenosis, L CEA w/ bovine patch * BSGs well controlled thus far * Patient is now post-op, it does not appear that steroids were given tamiko-op * Will utilize Lantus + Novolog during this admission. Lantus dose will be equivalent to out-pt NPH dose. * Novolog dose will be based upon weight and moderate stress level PLAN FOR INPATIENT GLYCEMIC CONTROL: * Basal insulin * Lantus 14 units SQ HS * Bolus insulin * NovoLog per scale ACHS or Q6hrs while NPO * Goal Range: Low 110 mg/dL - High 140 mg/dL * Correction Factor: 30 mg/dL/unit * Nutritional / Prandial insulin per carb ratio of 1 unit per 10 grams CHO consumed PLAN FOR DISCHARGE: * May resume outpt insulin regimen as A1c at goal
[2019-03-08] MEDS: MoRPHine SULFATE 4 MG/ML 1 ML CARP\\VIAL IV PRN ×2 (15:59→21:07)
[2019-03-08] MEDS: LACTATED RINGER'S 1,000 ML IV SCH ×2 (16:00→22:59)
--- NOTE | 2019-03-08 16:08 | Critical Care Consultation ---
Date of Consultation March 08, 2019 Assessment & Plan (1) Admitted to intensive care unit: Reason Critically Ill: s/p Left Carotid Endarterectomy with Bovine Patch NEURO Seizure Disorder- cont Keppra 1000 mg BID Lumbosacral Radiculopathy- cont gabapentin 100 mg qhs H/O Mild Cognitive Impairment No other acute concerns CV HTN, HLD, CAD- Cont ASA 81, Amlodipine 5 mg BID, Atorvastatin 80 mg qhs, Carvedilol 6.25 mg BID, Clopidogrel 75 mg qam, Losartan 100 mg qam PULM Asthma- stable. Advair 1 puff BID MARY ELLEN- per pt, not on CPAP at nighttime Abd/GI GERD- stable. Famotidine 40 mg qhs prn No other acute concerns ID No acute concerns for infectious etiology Cont trend fever curve ENDO DM2- ICU Hyperglycemia protocol. Appreciate Glycemic Pharmacy Management HEME Stable H/H. Cont trend daily CBC No concern for acute bleeding LINES: PIV x3 DVT Prophylaxis: SCDs FULL CODE DISPO: ICU. Anticipate d/c tomorrow Supervising Physician Co-Signing Physician Notes Dr. Soriano was resident physician during care of patient. I separately evaluated patient for flores portions of the history and the exam. I was present during the critical portion of medical decision making, and I discussed the case with the resident. I generally agree with the findings and plan. This patient presents after a left carotid endarterectomy, the patient was not symptomatic from a TIA yesterday as indicated in the resident's HPI, he returns for close follow-up following discovery of a symptomatic internal carotid artery stenosis. Patient had a rather uneventful operative course, postoperatively and when I evaluated the patient he had some mild swelling and mild dysarthria, the surgical site itself was soft patient is able to swallow adequately and there does not appear to be any evidence of expanding hematoma at this time. History of Present Illness Reason for Consultation: CEA Requesting Physician: Atiya Attending Physician: Hakan Rajput MD History of Present Illness 83 yo m with hx of meningioma removal, HTN, SOO, DMII, seizures, hyperlipidemia, PAD, known to Dr Rajput for ICAS, admitted with TIA sx yesterday and found to have LICAS of 70-80%. Pt's states he was confused and having difficulty word finding and slurring his speech yesterday, so she called the ambulance. 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 These sx were also different from his seizure sx, according to . Pt denies any associated PARRY or extremity weakness. There is a question of L facial droop, but pt/ are not sure whether that actually occurred. Denies fever, chills, chest pain, SOB, abd pain, N/V, rest pain, claudication, other complaints. All sx resolved yesterday. CTA neck demonstrates LICAS of 70-80%. Now s/p Left Carotid Endarterectomy with Bovine Patch. Allergies Allergy/AdvReac Type Severity Reaction Status Date / Time levofloxacin AdvReac Intermediate DIFFICULTY Verified 03/08/19 05:57 WALKING "LEGS FROZE UP" lisinopril AdvReac Intermediate UPSET Verified 03/08/19 05:57 STOMACH AND DIZZINESS Home Medications Home Medications Medication Instructions Recorded Confirmed Type Humulin N NPH Insulin KwikPen 10 - 14 unit SUBCUT HS 02/20/18 03/08/19 History amlodipine [Norvasc] 5 mg PO BID 02/20/18 03/08/19 History aspirin 81 mg PO QAM 02/20/18 03/08/19 History atorvastatin 80 mg PO HS 02/20/18 03/08/19 History cholecalciferol (vitamin D3) 2,000 unit PO DAILY 02/20/18 03/08/19 History [Vitamin D3] cinnamon bark [Cinnamon] 1,000 mg PO DAILY 02/20/18 03/08/19 History cyanocobalamin (vitamin B-12) 1,000 mcg PO QAM 02/20/18 03/08/19 History docusate sodium 100 mg PO HS 02/20/18 03/08/19 History fluticasone propion-salmeterol 1 puff INHALATION BID 02/20/18 03/08/19 History [Advair Diskus] gabapentin 100 mg PO HS 02/20/18 03/08/19 History insulin lispro [Humalog KwikPen 3 - 5 unit SUBCUT AC 02/20/18 03/08/19 History Insulin] levetiracetam [Keppra] 1,000 mg PO BID 02/20/18 03/08/19 History losartan [Cozaar] 100 mg PO QAM 02/20/18 03/08/19 History mometasone 2 spray INTRANASAL DAILY 02/20/18 03/08/19 History multivitamin 1 tab PO QAM 02/20/18 03/08/19 History nitroglycerin 1 tab SUBLINGUAL UD PRN 02/20/18 03/08/19 History omega 5-vft-nbc-fish oil [Fish Oil] 1 cap PO DAILY 02/20/18 03/08/19 History coenzyme Q10 100 mg capsule 200 mg PO DAILY cap 11/12/18 03/08/19 History carvedilol 6.25 mg PO BID #60 tab 03/04/19 03/08/19 Rx clopidogrel 75 mg PO QAM #30 tab 03/04/19 03/08/19 Rx levetiracetam [Keppra] 250 mg PO BID #60 tab 03/04/19 03/08/19 Rx famotidine [Pepcid] 40 mg PO HS PRN 03/05/19 03/08/19 History oxycodone-acetaminophen [Percocet] 1 tab PO Q6H PRN #6 tab 03/09/19 Rx Patient History Medical History Obstructive sleep apnea no device Bronchiectasis (Acute) Chronic sinusitis (Acute) Lumbar spinal stenosis (Acute) Lumbosacral radiculopathy (Acute) Lung nodule (Acute) Paresthesias (Acute) Peripheral arterial occlusive disease (Acute) Vitamin D deficiency (Acute) Asthma Chronic bronchitis TIA (transient ischemic attack) hospitalized [facility] 03/03/19 Cancer PROSTATE CA - 10 YEARS AGO - TREATED W/ RADIOACTIVE SEED IMPLANTS Chronic back pain Claudication of right lower extremity Diabetes mellitus, type 2 IDDM GERD (gastroesophageal reflux disease) Hyperlipidemia Hypertension Myocardial Infarction "SILENT CO" -- "MANY, MANY YEARS AGO" (COULD NOT RECALL) - CARDIAC CATH - DR. DUPONT [place] [facility] [place]/ANGIOPLASTY. Osteoarthritis Sciatica Seizure POST MENINGIOMA SURGERY - ON ORAL MED - LAST 2013 - FOLLOWS W/ DR. PERLA Surgical History History of cardiac cath 30 years ago? [facility] [place] H/O sinus surgery History of cataract surgery History of colonoscopy History of herniorrhaphy History of surgery REMOVAL OF MENINGIOMA (BENIGN) - [address] [facility] [address] UMA History of tooth extraction Family History Father Congestive heart failure Brother Colon cancer Stroke syndrome Social History Preferred Language: Vietnamese Communication Ability: Effective Rig Operator Required: No Beliefs That Will Affect Care: None Current Living Situation: Spouse Other Information That Helps Us Care for You: No Feels Safe at Home: Yes Safety Concerns: Feels Safe At This Time Smoking Status: Former smoker Tobacco Type: cigarettes ; Cigarettes Per Day: QUIT 35 YEARS AGO ; Do You Dip or Chew Tobacco: No ; Smoking End Date: quit 35 years ago ; Second Hand Exposure: No ; Tobacco Cessation Education Requested by Patient: No Hx Alcohol Use: Yes Alcohol type: hard liquor Hx Substance Use: No Review of Systems Review of Systems: All systems reviewed & are unremarkable except as noted in HPI & below Physical Exam Constitutional: WD/WN, vitals as above ENMT: external ear and nose normal, oropharynx normal Neck: Incision closed L side, bandaged No d/c Respiratory: normal respiratory effort, lungs clear to auscultation Cardiovascular: RRR, no murmur, no edema Gastrointestinal (Abdomen): normal bowel sounds, soft, nontender, no hepatosplenomegaly Skin: no rashes, warm and dry Psychiatric: A+Ox3, euthymic affect Results & Data Vital Signs (Past 12 Hours) Vital Signs Temp Pulse Pulse Pulse Resp BP BP 03/08/19 15:00 60 03/08/19 14:53 56 L 16 94/61 L 03/08/19 14:45 36.7 C 53 L 16 03/08/19 14:44 53 L 10 L 03/08/19 14:41 104/47 L 03/08/19 14:25 57 L 23 94/61 L 03/08/19 14:05 61 18 108/51 L 03/08/19 13:50 57 L 21 101/60 03/08/19 13:40 58 L 21 109/56 L 03/08/19 13:30 59 L 20 114/57 L 03/08/19 13:20 36.4 C L 59 L 21 108/59 L 03/08/19 13:10 57 L 19 97/60 L 03/08/19 13:00 61 21 92/60 L 03/08/19 12:50 55 L 21 92/60 L 03/08/19 12:40 57 L 22 107/64 03/08/19 12:30 36.0 C L 66 20 120/67 03/08/19 06:10 36.5 C 70 18 178/88 H BP BP Pulse Ox 03/08/19 15:00 96 03/08/19 14:53 117/51 L 96 03/08/19 14:45 96 03/08/19 14:44 96 03/08/19 14:41 03/08/19 14:25 96 03/08/19 14:05 102/57 L 96 03/08/19 13:50 103/53 L 95 03/08/19 13:40 108/56 L 95 03/08/19 13:30 116/57 L 94 03/08/19 13:20 116/57 L 95 03/08/19 13:10 101/48 L 98 03/08/19 13:00 112/52 L 98 03/08/19 12:50 108/53 L 97 03/08/19 12:40 99 03/08/19 12:30 99 03/08/19 06:10 162/83 H 96 Laboratory Results Laboratory Results - last 24 hr 03/08/19 03/08/19 03/08/19 06:03 06:08 10:23 WBC RBC Hgb Hct MCV MCH MCHC RDW Std Deviation RDW Coeff of Shaun Plt Count MPV Immature Gran % (Auto) Neut % (Auto) Lymph % (Auto) [place] % (Auto) Eos % (Auto) Baso % (Auto) Immature Gran # (Auto) Neut # (Auto) Lymph # (Auto) [place] # (Auto) Eos # (Auto) Baso # (Auto) POC Glucose 150 H 112 H Nasal Screen MRSA (PCR) Blood Type O Positive Antibody Screen NEGATIVE 03/08/19 03/08/19 03/08/19 12:34 12:46 15:00 WBC 4.25 L RBC 4.17 L Hgb 13.4 L Hct 38.5 L MCV 92.3 MCH 32.1 MCHC 34.8 RDW Std Deviation 44.1 RDW Coeff of Shaun 13.1 Plt Count 142 MPV 11.0 H Immature Gran % (Auto) 0.7 Neut % (Auto) 52.1 Lymph % (Auto) 29.6 [place] % (Auto) 11.8 Eos % (Auto) 5.6 Baso % (Auto) 0.2 Immature Gran # (Auto) 0.03 H Neut # (Auto) 2.21 Lymph # (Auto) 1.26 Roosevelt # (Auto) 0.50 Eos # (Auto) 0.24 Baso # (Auto) 0.01 POC Glucose 117 H Nasal Screen MRSA (PCR) Pending Blood Type Antibody Screen 03/08/19 16:02 WBC RBC Hgb Hct MCV MCH MCHC RDW Std Deviation RDW Coeff of Shaun Plt Count MPV Immature Gran % (Auto) Neut % (Auto) Lymph % (Auto) [place] % (Auto) Eos % (Auto) Baso % (Auto) Immature Gran # (Auto) Neut # (Auto) Lymph # (Auto) [place] # (Auto) Eos # (Auto) Baso # (Auto) POC Glucose 124 H Nasal Screen MRSA (PCR) Blood Type Antibody Screen Medications Administered Current Inpatient Medications Amlodipine Besylate (Norvasc) 5 mg PO BID [facility] Stop: 04/07/19 20:59 Aspirin (Ecotrin Ectab) 81 mg PO QAM [facility] Stop: 04/08/19 08:59 Atorvastatin Calcium (Lipitor) 80 mg PO HS [facility] Stop: 04/07/19 20:59 Carvedilol (Coreg) 6.25 mg PO BID [facility] Stop: 04/07/19 20:59 Clopidogrel Bisulfate (Plavix) 75 mg PO QAM [facility] Stop: 04/08/19 08:59 Cyanocobalamin (Vitamin B-12) 1,000 mcg PO QAM [facility] Stop: 04/08/19 08:59 Docusate Sodium (Colace) 100 mg PO HS [facility] Stop: 04/07/19 20:59 Famotidine (Pepcid) 40 mg PO HS PRN PRN Reason: gerd Stop: 04/07/19 14:52 Fish Oil ([place]-3 (Purified Fish Oil)) 1 gm PO DAILY [facility] Stop: 04/08/19 08:59 Fluticasone Propionate (Flonase) 2 sprays ANKITA DAILY [facility] Stop: 04/08/19 08:59 Gabapentin (Neurontin) 100 mg PO HS [facility] Stop: 04/07/19 20:59 Lactated Ringer's (Lr) 1,000 mls @ 15 mls/hr IV .Q24H [facility] Stop: 03/09/19 05:59 Last Infusion: 03/08/19 09:30 Dose: Infused Documented by: Lactated Ringer's (Lr) 1,000 mls @ 80 mls/hr IV .[id number] [facility] Stop: 03/08/19 18:29 Last Admin: 03/08/19 08:21 Dose: Not Given Documented by: Cefazolin Sodium (Ancef 2000mg) 2,000 mg in 15 mls @ 3.75 mls/min IV TODAY@0830 [facility]; Protocol Stop: 03/08/19 23:59 Last Admin: 03/08/19 09:30 Dose: 3.75 mls/min Documented by: Lactated Ringer's (Lr) 1,000 mls @ 125 mls/hr IV .Q8H [facility] Stop: 04/07/19 15:14 Last Admin: 03/08/19 16:00 Dose: 125 mls/hr Documented by: Insulin Aspart (Novolog Flexpen) 0 units SC ACHS [facility] Stop: 04/07/19 16:29 Insulin Aspart (Novolog Flexpen) 0 units SC TODAY@0200 ONE Stop: 03/09/19 02:01 Insulin Glargine (Lantus Per Unit) 14 units SQ HS [facility] Stop: 04/07/19 20:59 Levetiracetam (Keppra) 1,000 mg PO BID [facility] Stop: 04/07/19 20:59 Levetiracetam (Keppra) 250 mg PO BID [facility] Stop: 04/07/19 20:59 Losartan Potassium (Cozaar) 100 mg PO QAM [facility] Stop: 04/08/19 08:59 Miscellaneous Information (Consult Glycemic Management Pharmacy) 1 ea N/A UD PRN PRN Reason: Consult Stop: 04/07/19 15:04 Morphine Sulfate (Morphine Sulfate) 1 - 4 mg IV Q2H PRN PRN Reason: Severe Pain Stop: 03/22/19 14:52 Last Admin: 03/08/19 15:59 Dose: 2 mg Documented by: Multivitamins (Multivitamin Tab) 1 tab PO QAM [facility] Stop: 04/08/19 08:59 Nitroglycerin (Nitrostat) 0.4 mg SL UD PRN PRN Reason: Chest Pain Stop: 04/07/19 14:52 Ondansetron HCl (Zofran) 4 mg IV ONE PRN PRN Reason: Nausea And Vomiting Stop: 04/07/19 14:52 Oxycodone/Acetaminophen (Percocet 5mg/325mg) 1 - 2 tab PO Q4H PRN PRN Reason: Moderate Pain Stop: 03/22/19 14:52 Fluticasone/Salmeterol (Advair Diskus 100/50) 1 puffs INH BID [facility] Stop: 04/07/19 20:59 Vitamin D (Vitamin D3) 2,000 units PO DAILY [facility] Stop: 04/08/19 08:59 PG Care Time/CCT Total # of Minutes Spent Total Time Spent with Patient: Total time spent is greater than 50% in coordination of care (as documented) at patient's floor/unit and/or counseling patient: Resident Activity Tracking Resident Involvement: Resident Care Provided Care Provided: Adult Hospital Medicine
[2019-03-08] MEDS: INSULIN ASPART 100 UNITS/ML 3 ML PEN SC SCH ×2 (16:49→21:17)
[2019-03-08] MEDS ORDERED: DOCUSATE SODIUM 100 MG CAP PO SCH (21:00)
[2019-03-08] MEDS ORDERED: LANTUS PER UNIT CHARGE SQ SCH (21:00)
[2019-03-08] MEDS ORDERED: GABAPENTIN 100 MG CAP PO SCH (21:00)
[2019-03-08] MEDS ORDERED: ATORVASTATIN 40 MG TAB PO SCH (21:00)
[2019-03-08] MEDS: FLUTICASONE/SALMETEROL 100/50 (ADVAIR) 14 PUFF/1 INHALER INH SCH (21:08)
[2019-03-08] MEDS: levETIRAcetam 500 MG TAB PO SCH (21:09)
[2019-03-08] MEDS: levETIRAcetam 250 MG TAB PO SCH (21:11)
[2019-03-08] MEDS: AMLODIPINE BESYLATE 5 MG TAB PO SCH (21:12)
[2019-03-08] MEDS: carvediloL 6.25 MG TAB PO SCH (21:13)
[2019-03-09] MEDS ORDERED: ACETAMINOPHEN 500 MG TAB PO STA (00:41)
[2019-03-09] MEDS ORDERED: INSULIN ASPART 100 UNITS/ML 3 ML PEN SC ONE (02:00)
[2019-03-09 05:21] LABS: Basophils # (auto) 0.01 K/uL (0-0.2); Basophils % (auto) 0.2 %; Eosinophils # (auto) 0.12 K/uL (0-0.5); Hematocrit (blood only) 35.5 % (42-52); Hemoglobin 12.1 g/dL (14.0-18.0); Immature Granulocytes # (auto) 0.03 K/uL (0.00-0.02); Immature Granulocytes % (auto) 0.5 %; Lymphocytes # (auto) 1.29 K/uL (1.2-3.4); Lymphocytes % (auto) 21.3 %; Mean Corpuscular Hemoglobin 31.7 pg (25-34); Mean Corpuscular Hgb Conc 34.1 g/dL (32-36); Mean Corpuscular Volume 92.9 fL (80-100); Mean Platelet Volume 11.6 fL (7.4-10.4); Monocytes # (auto) 0.95 K/uL (0.11-0.59); Monocytes % (auto) 15.7 %; Neutrophils # (auto) 3.67 K/uL (1.4-6.5); Neutrophils % (auto) 60.3 %; Platelet Count 134 K/uL (130-400); RDW Coefficient of Variation 13.3 % (11.5-14.5); RDW Standard Deviation 45.2 fL (36.4-46.3); Red Blood Count 3.82 M/uL (4.7-6.1); White Blood Count 6.07 K/uL (4.8-10.8)
[2019-03-09 05:48] LABS: BUN Creatinine Ratio 15.9 (10-20); Calcium 7.8 mg/dl (8.5-10.1); Creatinine Clr Calc Pharmacy 52.2 ml/min; Est GFR (African American) 72.4; Est GFR (Non-African American) 62.4; Magnesium 1.8 mg/dl (1.8-2.4); Potassium 3.5 mmol/L (3.5-5.1)
[2019-03-09 05:49] LABS: Phosphorus 2.7 mg/dl (2.5-4.9)
[2019-03-09] MEDS ORDERED: CEFAZOLIN 1000MG 1,000 MG/7.5 ML SYR IV SCH (06:00)
--- NOTE | 2019-03-09 07:21 | Critical Care Progress Note ---
Date of Service March 09, 2019 Assessment & Plan (1) Admitted to intensive care unit: Reason Critically Ill: s/p Left Carotid Endarterectomy with Bovine Patch NEURO Seizure Disorder- cont Keppra 1000 mg BID Lumbosacral Radiculopathy- cont gabapentin 100 mg qhs H/O Mild Cognitive Impairment No other acute concerns CV HTN, HLD, CAD- Cont ASA 81, Amlodipine 5 mg BID, Atorvastatin 80 mg qhs, Carvedilol 6.25 mg BID, Clopidogrel 75 mg qam, Losartan 100 mg qam PULM Asthma- stable. Advair 1 puff BID MARY ELLEN- per pt, not on CPAP at nighttime Abd/GI GERD- stable. Famotidine 40 mg qhs prn No other acute concerns ID No acute concerns for infectious etiology Cont trend fever curve ENDO DM2- ICU Hyperglycemia protocol. Appreciate Glycemic Pharmacy Management HEME Stable H/H. Cont trend daily CBC No concern for acute bleeding LINES: PIV x3. A-line removed. DVT Prophylaxis: SCDs FULL CODE DISPO: Stable for downgrade out of ICU and d/c home. Supervising Physician Co-Signing Physician Notes Dr. Soriano was resident physician during care of patient. I separately evaluated patient for flores portions of the history and the exam. I was present during the critical portion of medical decision making, and I discussed the case with the resident. I generally agree with the findings and plan. Patient is stable for downgrade out of ICU today. Subjective 83 yo M found in chair this AM in NAD. Post op day 1. No reported overnight events. Tolerating PO intake, no swallowing problems. No focal deficits noted. No other acute concerns or complaints. Review of Systems Review of Systems: All systems reviewed & are unremarkable except as noted in HPI & below Physical Exam Constitutional: WD/WN, vitals as above ENMT: external ear and nose normal, oropharynx normal Neck: incision intact, no d/c Moderate soft swelling with ecchymosis Respiratory: normal respiratory effort, lungs clear to auscultation Cardiovascular: RRR, no murmur, no edema Gastrointestinal (Abdomen): normal bowel sounds, soft, nontender, no hepatosplenomegaly Skin: no rashes, warm and dry Psychiatric: A+Ox3, euthymic affect Results & Data Vital Signs (Past 12 Hours) Vital Signs Temp Pulse Resp BP Pulse Ox 03/09/19 06:02 73 25 H 148/75 H 93 10/08/19 05:00 70 15 138/66 95 03/09/19 04:00 36.5 C 59 L 16 132/65 95 03/09/19 03:00 59 L 17 129/64 93 03/09/19 02:00 63 18 131/64 94 03/09/19 01:00 85 37 H 141/67 H 95 03/09/19 00:00 36.6 C 72 28 H 127/65 95 03/08/19 23:00 61 16 120/62 94 03/08/19 22:00 65 19 119/69 95 03/08/19 21:00 62 22 131/70 95 03/08/19 20:00 36.5 C 65 18 107/64 95 03/08/19 19:31 64 17 115/67 95 Laboratory Results Laboratory Results - last 24 hr 03/08/19 03/08/19 03/08/19 15:00 16:02 21:01 WBC RBC Hgb Hct MCV MCH MCHC RDW Std Deviation RDW Coeff of Shaun Plt Count MPV Immature Gran % (Auto) Neut % (Auto) Lymph % (Auto) [place] % (Auto) Eos % (Auto) Baso % (Auto) Immature Gran # (Auto) Neut # (Auto) Lymph # (Auto) [place] # (Auto) Eos # (Auto) Baso # (Auto) Sodium Potassium Chloride Carbon Dioxide Anion Gap BUN Creatinine Est Cr Clr Drug Dosing Est GFR ( Amer) Est GFR (Non-Af Amer) BUN/Creatinine Ratio Glucose POC Glucose 124 H 144 H Calcium Phosphorus Magnesium Nasal Screen MRSA (PCR) Negative 03/09/19 03/09/19 03/09/19 01:41 04:34 04:34 WBC 6.07 RBC 3.82 L Hgb 12.1 L Hct 35.5 L MCV 92.9 MCH 31.7 MCHC 34.1 RDW Std Deviation 45.2 RDW Coeff of Shaun 13.3 Plt Count 134 MPV 11.6 H Immature Gran % (Auto) 0.5 Neut % (Auto) 60.3 Lymph % (Auto) 21.3 Divide % (Auto) 15.7 Eos % (Auto) 2.0 Baso % (Auto) 0.2 Immature Gran # (Auto) 0.03 H Neut # (Auto) 3.67 Lymph # (Auto) 1.29 Divide # (Auto) 0.95 H Eos # (Auto) 0.12 Baso # (Auto) 0.01 Sodium 141 Potassium 3.5 Chloride 108 H Carbon Dioxide 27 Anion Gap 6.0 BUN 17 Creatinine 1.09 Est Cr Clr Drug Dosing 52.2 Est GFR ( Amer) 72.4 Est GFR (Non-Af Amer) 62.4 BUN/Creatinine Ratio 15.9 Glucose 146 H POC Glucose 137 H Calcium 7.8 L Phosphorus 2.7 Magnesium 1.8 Nasal Screen MRSA (PCR) PG Care Time/CCT Total # of Minutes Spent Total Time Spent with Patient: Total time spent is greater than 50% in coordination of care (as documented) at patient's floor/unit and/or counseling patient: Resident Activity Tracking Resident Involvement: Resident Care Provided Care Provided: Adult Hospital Medicine
[2019-03-09] MEDS: LACTATED RINGER'S 1,000 ML IV SCH (07:46)
[2019-03-09] MEDS: carvediloL 6.25 MG TAB PO SCH (07:51)
[2019-03-09] MEDS: AMLODIPINE BESYLATE 5 MG TAB PO SCH (07:51)
[2019-03-09] MEDS: levETIRAcetam 250 MG TAB PO SCH (07:52)
[2019-03-09] MEDS: levETIRAcetam 500 MG TAB PO SCH (07:52)
[2019-03-09] MEDS: FLUTICASONE/SALMETEROL 100/50 (ADVAIR) 14 PUFF/1 INHALER INH SCH (07:53)
[2019-03-09] MEDS: INSULIN ASPART 100 UNITS/ML 3 ML PEN SC SCH (07:59)
--- NOTE | 2019-03-09 08:16 | Anesthesiology Progress Note ---
Date of Service March 09, 2019 Anesthesia Post Procedure Vital Signs Vital Signs: Temp Pulse Pulse Resp BP BP BP 03/09/19 06:02 73 25 H 148/75 H 03/09/19 05:00 70 15 138/66 03/09/19 04:00 36.5 C 59 L 16 132/65 03/09/19 03:00 59 L 17 129/64 03/09/19 02:00 63 18 131/64 03/09/19 01:00 85 37 H 141/67 H 03/09/19 00:00 36.6 C 72 28 H 127/65 03/08/19 23:00 61 16 120/62 03/08/19 22:00 65 19 119/69 03/08/19 21:00 62 22 131/70 03/08/19 20:00 36.5 C 65 18 107/64 03/08/19 19:31 64 17 115/67 03/08/19 19:00 63 17 110/61 03/08/19 16:53 67 129/86 132/56 L 03/08/19 16:00 75 79 18 03/08/19 15:53 59 L 18 123/71 140/72 03/08/19 15:00 60 03/08/19 14:53 56 L 16 94/61 L 117/51 L 03/08/19 14:45 36.7 C 53 L 16 03/08/19 14:44 53 L 10 L 03/08/19 14:41 104/47 L 03/08/19 14:25 57 L 23 94/61 L 03/08/19 14:05 61 18 108/51 L 102/57 L 03/08/19 13:50 57 L 21 101/60 103/53 L 03/08/19 13:40 58 L 21 109/56 L 108/56 L 03/08/19 13:30 59 L 20 114/57 L 116/57 L 03/08/19 13:20 36.4 C L 59 L 21 108/59 L 116/57 L 03/08/19 13:10 57 L 19 97/60 L 101/48 L 03/08/19 13:00 61 21 92/60 L 112/52 L 03/08/19 12:50 55 L 21 92/60 L 108/53 L 03/08/19 12:40 57 L 22 107/64 03/08/19 12:30 36.0 C L 66 20 120/67 Pulse Ox 03/09/19 06:02 93 03/09/19 05:00 95 03/09/19 04:00 95 03/09/19 03:00 93 03/09/19 02:00 94 03/09/19 01:00 95 03/09/19 00:00 95 03/08/19 23:00 94 03/08/19 22:00 95 03/08/19 21:00 95 03/08/19 20:00 95 03/08/19 19:31 95 03/08/19 19:00 94 03/08/19 16:53 97 03/08/19 16:00 97 03/08/19 15:53 98 03/08/19 15:00 96 03/08/19 14:53 96 03/08/19 14:45 96 03/08/19 14:44 96 03/08/19 14:41 03/08/19 14:25 96 03/08/19 14:05 96 03/08/19 13:50 95 03/08/19 13:40 95 03/08/19 13:30 94 03/08/19 13:20 95 03/08/19 13:10 98 03/08/19 13:00 98 03/08/19 12:50 97 03/08/19 12:40 99 03/08/19 12:30 99 Pain Intensity Left Neck: Pain Intensity: 5 Notes Mental Status: alert / awake / arousable and participated in evaluation Patient Amnestic to Procedure: Yes Nausea / Vomiting: adequately controlled Pain: adequately controlled Airway Patency, RR, SpO2: stable & adequate BP & HR: stable & adequate Hydration State: stable & adequate Anesthetic Complications: no major complications apparent and Pt Satisfied with anesthetic care
[2019-03-09] MEDS ORDERED: NON-FORMULARY MEDICATION (Cinnamon Bark [Cinnamon] 1,000 MG) PO SCH (09:00)
[2019-03-09] MEDS ORDERED: MULTIVITAMIN TAB PO SCH (09:00)
[2019-03-09] MEDS ORDERED: ASPIRIN 81 MG ECTAB PO SCH (09:00)
[2019-03-09] MEDS ORDERED: NON-FORMULARY MEDICATION (Coenzyme Q10 200 MG) PO SCH (09:00)
[2019-03-09] MEDS ORDERED: CHOLECALCIFEROL 1,000 UNITS TAB PO SCH (09:00)
[2019-03-09] MEDS ORDERED: OMEGA-3 (PURIFIED FISH OIL) 1 GM CAP PO SCH (09:00)
[2019-03-09] MEDS ORDERED: CYANOCOBALAMIN 500 MCG TABLET (VITAMIN B-12) PO SCH (09:00)
[2019-03-09] MEDS ORDERED: CLOPIDOGREL BISULFATE 75 MG TAB PO SCH (09:00)
[2019-03-09] MEDS ORDERED: FLUTICASONE PROPIONATE NA SPR 16 GM BTL NAE SCH (09:00)
[2019-03-09] MEDS ORDERED: LOSARTAN POTASSIUM 50 MG TAB PO SCH (09:00)
--- NOTE | 2019-03-09 10:37 | Surgery Progress Note ---
Date of Service March 09, 2019 Assessment & Plan (1) Carotid stenosis: Doing well post op Will D/C today. Subjective No complaints. No swallowing problems. No focal deficits noted. Physical Exam Constitutional: WD/WN, vitals as above Neck: trachea midline Skin: + wound Moderate soft swelling with ecchymosis Neurologic: CN's II-XI intact bilaterally and moves all extremities; no focal motor deficits Speech / Cognition: normal speech Slight left marginal mandibular weakness. Slightly better than yesterday Results & Data Vital Signs (Past 12 Hours) Vital Signs Temp Pulse Pulse Resp BP BP Pulse Ox 03/09/19 08:00 36.5 C 73 78 20 178/96 H 154/74 H 97 03/09/19 06:02 73 25 H 148/75 H 93 03/09/19 05:00 70 15 138/66 95 03/09/19 04:00 36.5 C 59 L 16 132/65 95 03/09/19 03:00 59 L 17 129/64 93 03/09/19 02:00 63 18 131/64 94 03/09/19 01:00 85 37 H 141/67 H 95 03/09/19 00:00 36.6 C 72 28 H 127/65 95 03/08/19 23:00 61 16 120/62 94 (1) Carotid stenosis Laterality: unspecified laterality Qualified Code(s): I65.29 - Occlusion and stenosis of unspecified carotid artery
--- NOTE | 2019-03-12 12:50 | Discharge Summary ---
Date of Service March 12, 2019 Admission HPI Per Admitting Provider History of Present Illness 83 yo m with hx of meningioma removal, HTN, SOO, DMII, seizures, hyperlipidemia, PAD, known to Dr Rajput for ICAS, admitted with TIA sx yesterday and found to have LICAS of 70-80%, seen in consultation today. Pt's states he was confused and having difficulty word finding and slurring his speech yesterday, so she called the ambulance. 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 These sx were also different from his seizure sx, according to . Pt denies any associated PARRY or extremity weakness. There is a question of L facial droop, but pt/ are not sure whether that actually occurred. Denies fever, chills, chest pain, SOB, abd pain, N/V, rest pain, claudication, other complaints. All sx resolved yesterday. CTA neck demonstrates LICAS of 70-80%. Admission Exam Per Admitting Provider Physical Exam Constitutional: WD/WN, vitals as above well developed, well nourished, healthy appearing, well groomed, cooperative and comfortable; not in distress Eyes: PERRL, conjunctivae normal, anicteric sclerae EOM intact bilaterally ENMT: external ear and nose normal, oropharynx normal Nose: no nasal discharge Neck: no tracheal deviation, no neck crepitus and neck nontender Respiratory: normal respiratory effort, lungs clear to auscultation able to speak in complete sentences; does not use accessory muscles and no cough Auscultation: lungs clear to auscultation bilaterally and + diminished lung sounds Cardiovascular: RRR, no murmur, no edema Heart Sounds: no gallop and no murmur Vessels: femoral pulses present, posterior tibial pulses present, dorsalis pedis pulses present and radial pulses present; no femoral bruit and + abnormal peripheral pulses Extremities: normal capillary refill; no edema Gastrointestinal (Abdomen): normal bowel sounds, soft, nontender, no hepatosplenomegaly Inspection/Auscultation: abdomen normal to inspection and normal bowel sounds; abdomen not distended Percussion/Palpation: abdomen soft; abdomen nontender, no guarding and abdomen not rigid Musculoskeletal: no cyanosis or clubbing, extremities motor strength 5/5 Head/Neck/Chest: normocephalic, head atraumatic and neck supple Extremities: extremities normal to inspection and strength 5/5 throughout; full ROM of extremities Skin: no rashes, warm and dry turgor not decreased, no rashes, no lesions, no ulcers, no erythema, no eschar, no excoriations and no mottling Neurologic: moves all extremities and awake; no focal motor deficits and not confused Speech / Cognition: no expressive aphasia and no receptive aphasia Motor/Sensory: no tremor, no pronator drift and no sensory deficit Cranial Nerves: EOM intact bilaterally, normal facial strength and tongue midline Psychiatric: Orientation: alert, oriented x 3 and cooperative Apperance: appropriately dressed, appropriately groomed and appeared stated age Affect: euthymic affect Thought Process: goal directed thought process, linear/logical thought process and clear/coherent thought process Cognition: recent memory grossly intact, remote memory grossly intact, attention grossly intact and language grossly intact Estimated Intelligence: average estimated intelligence Principal Diagnosis 1. s/p L Carotid Endarterectomy 2. L ICA stenosis with TIA Discharge Exam Constitutional WD/WN, vitals as above Neck trachea midline Skin + wound Neurologic CN's II-XI intact bilaterally and moves all extremities; no focal motor deficits Speech / Cognition: normal speech Discharge Data Allergies Allergy/AdvReac Type Severity Reaction Status Date / Time levofloxacin AdvReac Intermediate DIFFICULTY Verified 03/12/19 10:53 WALKING "LEGS FROZE UP" lisinopril AdvReac Intermediate UPSET Verified 03/12/19 10:53 STOMACH AND DIZZINESS Procedures Performed Operation Date: 03/08/19 07:30 Actual Procedures p Left Carotid Endarterectomy with Bovine Patch(Left) - Hakan Rajput MD Hospital Course (1) Carotid stenosis: Doing well post op Will D/C today, POD #1. Total Time Total Time Spent Total Time Spent (In Minutes): 10minutes Total Time Includes: Examination of the Patient, Discharge Planning and Medication Reconciliation Discharge Plan Discharge Items Patient Disposition: Home - Self-Care Reason For Visit: CAROTID STENOSIS Discharge Diagnosis: Left internal carotid artery Activity: Per Instructions section Non-emergency contact: Surgeon Call non-emergency contact if: you have any medication questions, your symptoms worsen, your pain is not controlled, your pain is worsening, your pain is unusual for you, your pain is concerning for you, your temperature is above 101.5, your wound has increased redness, your wound has increased drainage and your wound pain has increased Follow-up/Referrals: Max Storm [Primary Care Provider] - Diet: Carb Consistent or DM2 and Heart Healthy Addtl Attending Provider Instructions: SPECIAL CARE INSTRUCTIONS: Medications: * Continue to take Aspirin as directed. Incision Care: * You may shower, but do not rub incision. You may let the warm soapy water run over it. Be sure to dry the incision well after bathing. * Do not shave directly over the incision until it is healed. * DO NOT IMMERSE THE INCISION IN A TUB/POOL/etc. UNTIL HEALED. Restrictions: * Do not drive for at least one week or if you are still taking any narcotic pain medication. * Do not lift anything heavier than a gallon of milk for one week after going home. Possible Complications: * Numbness - It is normal to have some numbness around the incision. Numbness can extend beyond the incision to areas of the neck, ear and face. The numbness is due to bruising of nerves during the surgery and will gradually improve over a period of months. * Hoarseness/Difficulty Speaking and Swallowing - The bruising of nerves in the neck can also cause a hoarse voice, difficulty speaking or swallowing. This may improve over time, HOWEVER, if it continues for more than a few days please contact our office ([phone]). * Excessive Swelling - There will be some swelling immediately after surgery which usually resolves within one week. If you notice that the swelling is getting worse, notify your surgeon ([phone]). * Drainage/Bleeding - If there is any drainage or bleeding, it should be a very small amount (less than a teaspoon per day). If you have excessive bleeding or drainage from the incision, call your surgeon ([phone]) right away. ACTIVATION OF EMERGENCY MEDICAL SYSTEM: Call 911, immediately, if you experience any of the following: Warning Signs and Symptoms of Stroke: * Sudden numbness or weakness of the face, arm or leg, especially on one side of the body * Sudden confusion, trouble speaking or understanding * Sudden trouble seeing in one or both eyes * Sudden trouble walking, dizziness, loss of balance or coordination * Sudden severe headache with no cause Do not delay calling 911 if you experience any warning signs or symptoms of a stroke. Delay in seeking medical attention may affect what treatments can be given to you. Risk Factors for Stroke: You can reduce your chances of stroke by working with your medical provider to adopt a healthy lifestyle. Some specific ways to lower your chance of stroke are: * If you are a smoker, now is the time to stop smoking cigarettes * If you are diabetic, improve the control of your blood sugars * Avoid excessive amounts of alcohol * Control high blood pressure * Lose weight if you are overweight * Be sure to lead an active lifestyle * Eat a healthy diet low in salt, cholesterol and fat You should know about other risk factors for stroke that you are unable to co ntrol. These include: * Age 55 years or older * Male gender * Certain racial groups: , or / * Family History of Stroke, Mini stroke or Heart Attack * Sickle Cell Disease You will be receiving a call from the Vascular Surgery Nurse after you are discharged. FOLLOW UP VISIT: It is important for you to keep your follow up appointments with your medical provider. Keep any scheduled doctor appointments. Call [phone] to schedule a follow up appointment if one not already scheduled. Pending Studies at Discharge: No Stand-Alone Forms: My [facility] Medications and DC Order Prescriptions: New oxycodone-acetaminophen [Percocet] 5-325 mg tablet 1 tab PO Q6H PRN (Reason: pain) Qty: 6 RF: 0 Continued coenzyme Q10 100 mg capsule 200 mg PO DAILY RF: 0 famotidine [Pepcid] 40 mg Tablet 40 mg PO HS PRN (Reason: gerd) RF: 0 multivitamin Tablet 1 tab PO QAM RF: 0 atorvastatin 80 mg Tablet 80 mg PO HS RF: 0 amlodipine [Norvasc] 5 mg Tablet 5 mg PO BID RF: 0 aspirin 81 mg Tablet,Delayed Release (Dr/Ec) 81 mg PO QAM RF: 0 nitroglycerin 0.4 mg Tablet, Sublingual 1 tab Sublingual UD PRN (Reason: Chest Pain) RF: 0 docusate sodium 100 mg Capsule 100 mg PO HS RF: 0 mometasone 50 mcg/actuation Balm,Non-Aerosol 2 spray INTRANASAL DAILY RF: 0 gabapentin 100 mg Capsule 100 mg PO HS RF: 0 fluticasone propion-salmeterol [Advair Diskus] 100-50 mcg/dose Blister With Device 1 puff INHALATION BID RF: 0 losartan [Cozaar] 100 mg Tablet 100 mg PO QAM RF: 0 insulin lispro [Humalog KwikPen Insulin] 100 unit/mL Insulin Pen 3 - 5 unit SUBCUT AC RF: 0 Humulin N NPH Insulin KwikPen 100 unit/mL (3 mL) Insulin Pen 10 - 14 unit SUBCUT HS RF: 0 cinnamon bark [Cinnamon] 500 mg Capsule 1,000 mg PO DAILY RF: 0 levetiracetam [Keppra] 1,000 mg Tablet 1,000 mg PO BID RF: 0 cholecalciferol (vitamin D3) [Vitamin D3] 2,000 unit Capsule 2,000 unit PO DAILY RF: 0 omega 0-wjt-mpu-fish oil [Fish Oil] 1,000 mg (120 mg-180 mg) Capsule 1 cap PO DAILY RF: 0 cyanocobalamin (vitamin B-12) 1,000 mcg Capsule 1,000 mcg PO QAM RF: 0 carvedilol 6.25 mg Tablet 6.25 mg PO BID Qty: 60 RF: 0 clopidogrel 75 mg Tablet 75 mg PO QAM Qty: 30 RF: 0 Discharge Orders: Discharge Order (Routine); Ordered 03/09/19 Ordered By: Hakan Osborne/Other Patient Handouts: Oxycodone Hydrochloride Acetaminophen Oral tablet, Dysphagia, Endarterectomy Carotid Dc Admission Data Admit Date/Time: 03/08/19 09:09 Attending Provider: Hakan Rajput Admit Provider: Hakan Rajput Primary Care Provider: Max Storm Other Interventions: Discharge Summary Assessment (RN) Last Done: 03/09/19 10:54 DC Date/Time DO NOT enter until pt leaves facility: 03/09/19 11:49
== END 2019-03-09 11:49 | disposition home or self-care (01) | DRG 39 ==
LOC: ASU 05:40 → 1E 09:09
DX: Z79.02 Long term (current) use of antithrombotics/antiplatelets; Z87.891 Personal history of nicotine dependence; Z85.46 Personal history of malignant neoplasm of prostate; Z92.3 Personal history of irradiation; I65.22 Occlusion and stenosis of left carotid artery; E11.51 Type 2 diabetes mellitus with diabetic peripheral angiopathy without gangrene; Z79.82 Long term (current) use of aspirin; G40.909 Epilepsy, unspecified, not intractable, without status epilepticus; I25.2 Old myocardial infarction; M54.17 Radiculopathy, lumbosacral region; E78.5 Hyperlipidemia, unspecified; I10 Essential (primary) hypertension; G47.33 Obstructive sleep apnea (adult) (pediatric); Z79.4 Long term (current) use of insulin

== ENCOUNTER 2019-03-29 09:00 | Observation (INO) ==
[2019-03-29 09:44] LABS: Basophils # (auto) 0.03 K/uL (0-0.2); Basophils % (auto) 0.6 %; Eosinophils # (auto) 0.18 K/uL (0-0.5); Eosinophils % (auto) 3.8 %; Hematocrit (blood only) 44.6 % (42-52); Hemoglobin 14.9 g/dL (14.0-18.0); Immature Granulocytes # (auto) 0.01 K/uL (0.00-0.02); Immature Granulocytes % (auto) 0.2 %; Lymphocytes # (auto) 1.59 K/uL (1.2-3.4); Lymphocytes % (auto) 33.3 %; Mean Corpuscular Hemoglobin 31.8 pg (25-34); Mean Corpuscular Hgb Conc 33.4 g/dL (32-36); Mean Corpuscular Volume 95.3 fL (80-100); Mean Platelet Volume 11.9 fL (7.4-10.4); Monocytes # (auto) 0.57 K/uL (0.11-0.59); Monocytes % (auto) 11.9 %; Neutrophils % (auto) 50.2 %; Platelet Count 241 K/uL (130-400); RDW Coefficient of Variation 13.4 % (11.5-14.5); RDW Standard Deviation 46.6 fL (36.4-46.3); Red Blood Count 4.68 M/uL (4.7-6.1); White Blood Count 4.78 K/uL (4.8-10.8)
--- NOTE | 2019-03-29 09:48 | XRay Report ---
XR chest 1V portable CLINICAL HISTORY: Chest Pain COMPARISON STUDY: Chest CT May 18, 2008 18. Chest radiograph March 03, 2019. FINDINGS: Lung volumes are normal. Linear left basilar opacity suggests atelectasis. There is no pneu mothorax or pleural effusion. Mild cardiomegaly is unchanged. Mediastinal contours are normal. There is no evidence for pulmonary edema. IMPRESSION: No acute cardiopulmonary findings. No change in appearance of the chest. Electronically signed by: Pierre Alexander M.D. 03/29/2019 9:46 AM
[2019-03-29 09:53] LABS: Alanine Aminotransferase 30 U/L (12-78); Albumin Level 3.9 gm/dl (3.4-5.0); Aspartate Aminotransferase 23 U/L (15-37); BUN Creatinine Ratio 13.8 (10-20); Blood Urea Nitrogen 18 mg/dl (7-18); Carbon Dioxide 27 mmol/L (21-32); Chloride 105 mmol/L (98-107); Creatinine Clr Calc Pharmacy 39.3 ml/min; Est GFR (African American) 56.9; Est GFR (Non-African American) 49.1; Glucose 142 mg/dl (70-99); Potassium 3.8 mmol/L (3.5-5.1); Sodium 140 mmol/L (136-145)
[2019-03-29 09:57] LABS: Albumin Globulin Ratio 1.1 (0.9-2); Alkaline Phosphatase 65 U/L (45-117); Bilirubin,Total 0.5 mg/dl (0.2-1); Globulin 3.4 gm/dl (2.5-4.0); Total Protein 7.3 gm/dl (6.4-8.2); Troponin I < 0.015 ng/ml (0-0.045)
[2019-03-29 09:59] LABS: Partial Thromboplastin Ratio 0.9; Partial Thromboplastin Time 25.4 Seconds (21.0-31.0); Prothrombin Time 10.4 Seconds (9.0-12.0)
[2019-03-29] MEDS ORDERED: OPTIRAY 320 125ml IV PRN (10:06)
--- NOTE | 2019-03-29 11:00 | CT Scan Report ---
CT angio chest PE protocol CT DOSE: 379.32 mGy.cm HISTORY: 83 years-old Male with ro PE. Acute chest pain with shortness of breath TECHNIQUE: Multiple CTA images of the chest were obtained after the intravenous administration of 118 ml Optiray 320. Coronal and sagittal MIPS were obtained from the axial data set and were submitted for review. All measurements were obtained according to NASCET criteria. A dose lowering technique w as utilized adhering to the principles of ALARA. COMPARISON: Chest radiograph of same day, chest CT 05/18/2018 and 11/03/2017. FINDINGS: CTA: Cardiomegaly without pericardial effusion. Coronary arterial calcifications are noted. The left heart and thoracic aorta is not well opacified secondary to contrast bolus timing. Extensive calcified homer que of the thoracic aorta without aneurysm or dissection. There is tortuosity of the descending thora cic aorta. Main pulmonary artery is dilated measuring up to 3.7 cm suggestive of pulmonary arterial h ypertension. Reflux of contrast into the SVC and hepatic veins. There are no pulmonary arterial tree filling defects identified to suggest pulmonary thromboembolic disease. The subsegmental branches are not well opacified. CT CHEST: Heterogeneous appearance of the thyroid. There are multiple nonspecific prominent subcarinal, paratra cheal and bilateral hilar lymph nodes measuring up to 7-8 mm. No pneumothorax or pleural effusion. Mo derate bilateral bronchial wall thickening. Dependent subsegmental bibasilar atelectasis. There are a few scattered punctate calcified granulomata. The previously described 2.4 cm groundglass opacity of the right lung apex is better seen on comparison study secondary to mild adjacent atelectasis. 6 mm solid nodule of the anterior segment right upper lobe is redemonstrated on image 198 series 4 and bryanna ears unchanged. 11 x 6 mm solid nodule of the right lower lobe on image 126 series 4 previously measu red 7 x 4 mm. There are no new pulmonary nodules identified. Central airways appear patent. Thickening of the bilateral adrenal glands suggests hyperplasia. Soft tissues are unremarkable. The b ones appear intact. Degenerative changes of the shoulders and spine. IMPRESSION: 1. Cardiomegaly without evidence of pulmonary thromboembolic disease. 2. Bibasilar atelectasis with moderate bilateral bronchial wall thickening suggestive of bronchitis o r reactive airway disease. 3. Mildly prominent mediastinal and hilar lymph nodes, likely reactive. 4. 11 x 6 mm solid pulmonary nodule of the right lower lobe has increased in size from 05/18/2018 whe re it measured 7 mm. This is a suspicious finding and continued follow-up is needed to exclude a slow -growing neoplasm. 5. 2.4 cm groundglass opacity of the right lung apex redemonstrated. 6. Additional findings as above. Please refer to below summary of Fleischner criteria recommendations for follow-up of incidental CT n odules (Boy Drake, Guidelines for management of small pulmonary nodules detected on CT scans: A sta tement from the Fleischner Society, Radiology 237: [phone].) SOLID NODULES Multiple nodules size: <6 mm * Low risk patients: no routine follow-up * high risk patients: optional CT at 12 months Multiple nodules size: 6-8 mm * Low risk patients: follow-up at 3-6 months, then consider further follow-up at 18-24 months * high risk patients: follow-up at 3-6 months, then at 18-24 months if no change Multiple nodules size: >8 mm * Low risk patients: follow-up at 3-6 months, then consider further follow-up at 18-24 months * high risk patients: follow-up at 3-6 months, then at 18-24 months if no change Note: newly detected indeterminate nodule in persons 35 years of age or older. * Low risk patients: minimal or absent history of smoking and/or other known risk factors * high risk patients: history of smoking or of other known risk factors (e.g. first degree relative with lung cancer, or exposure to asbestos, radon, uranium) * if a nodule up to 8 mm is partly solid or is ground glass further follow-up is required after 24 m onths to exclude possible slow growing adenocarcinoma (IVELISSE) SUBSOLID NODULES Solitary pure ground-glass nodule * nodule size <6 mm - no CT follow-up required * nodule size >=6 mm - follow-up CT at 6-12 months, then every 2 years until 5 years The above report was generated using voice recognition software. It may contain grammatical, syntax o r spelling errors. Electronically signed by: Noel Lucas M.D. 03/29/2019 10:59 AM
--- NOTE | 2019-03-29 12:02 | History & Physical Report ---
Date of Service March 29, 2019 Assessment & Plan (1) Chest pain: Follow chest pain protocol. Monitor EKG and cardiac enzymes per protocol. The first set of cardiac enzymes and EKG is negative. May need cardiology consultation if cardiac enzymes trend up. Add aspirin. He follows up with Dr. Vega. Present on Admission?: Yes (2) Uncontrolled hypertension: Add IV hydralazine PRN basis for uncontrolled hypertension. Continue home medications. He takes beta-blockers, Norvasc and Cozaar. Present on Admission?: Yes (3) Diabetes: We will add sliding-scale insulin per protocol (4) Hyperlipidemia: Continue statins (5) Bronchitis: No sputum or fever. No need for antibiotics. (6) Seizure: Continue home medications-Keppra. (7) Prostate cancer: Stable. (8) CAD (coronary artery disease): (9) H/O brain surgery: (10) Controlled type 2 diabetes mellitus, with long-term current use of insulin: (11) Lung nodule: Patient advised to follow with per diem physical therapist assistant as outpatient. (12) History of left-sided carotid endarterectomy: Postoperative wound healing well. Continue Plavix. Add subcu heparin for DVT prophylaxis. History of Present Illness Primary Care Provider: Max Storm The patient is 83 years old male who is complaining of left-sided chest pain f or last 3 days. He complains of intermittent left-sided chest pain, no significant relieving or precipitating factor; he rates it as 2-3 out of 10 intensity. No radiation to the left shoulder, jaw or the neck. His blood pressure also has been running high for last 3 days. No syncope /no dizziness/ no palpitations/no dyspnea. He had a stress test 2 years back by his environmental geologist which was negative according to the patient and family. He will be admitted under observation for further evaluation and management. The first set of cardiac enzymes is negative. Currently he is chest pain-free. The patient recently had left carotid endarterectomy on 12/01/2018 Allergies Allergy/AdvReac Type Severity Reaction Status Date / Time levofloxacin AdvReac Intermediate DIFFICULTY Verified 03/29/19 10:55 WALKING "LEGS FROZE UP" lisinopril AdvReac Intermediate UPSET Verified 03/29/19 10:55 STOMACH AND DIZZINESS Home Medications Home Medications Medication Instructions Recorded Confirmed Type Humulin N NPH Insulin KwikPen 10 - 14 unit SUBCUT HS 02/20/18 03/29/19 History amlodipine [Norvasc] 5 mg PO BID 02/20/18 03/29/19 History cholecalciferol (vitamin D3) 2,000 unit PO DAILY@1400 02/20/18 03/29/19 History [Vitamin D3] cinnamon bark [Cinnamon] 1,000 mg PO DAILY@1400 02/20/18 03/29/19 History cyanocobalamin (vitamin B-12) 1,000 mcg PO DAILY@1400 02/20/18 03/29/19 History docusate sodium 100 mg PO HS PRN 02/20/18 03/29/19 History fluticasone propion-salmeterol 1 puff INHALATION BID 02/20/18 03/29/19 History [Advair Diskus] insulin lispro [Humalog KwikPen 3 - 5 unit SUBCUT AC 02/20/18 03/29/19 History Insulin] losartan [Cozaar] 100 mg PO QAM 02/20/18 03/29/19 History mometasone 2 spray INTRANASAL HS 02/20/18 03/29/19 History multivitamin 1 tab PO DAILY@1400 02/20/18 03/29/19 History nitroglycerin 1 tab SUBLINGUAL UD PRN 02/20/18 03/29/19 History omega 7-nip-nwl-fish oil [Fish Oil] 1 cap PO DAILY@1400 02/20/18 03/29/19 History coenzyme Q10 100 mg capsule 200 mg PO DAILY@1400 cap 11/12/18 03/29/19 History carvedilol 6.25 mg PO BID #60 tab 03/04/19 03/29/19 Rx clopidogrel 75 mg PO QAM #30 tab 03/04/19 03/29/19 Rx famotidine [Pepcid] 40 mg PO HS PRN 03/05/19 03/29/19 History gabapentin 100 mg capsule 100 mg PO HS 90 Days #90 cap 03/17/19 03/29/19 Rx atorvastatin 80 mg tablet 80 mg PO HS #90 tab 03/19/19 03/29/19 Rx atenolol 50 mg PO QAM 03/29/19 03/29/19 History levetiracetam 250 mg PO BID 03/29/19 03/29/19 History Past Med/Surg History Medical History Obstructive sleep apnea no device Bronchiectasis (Acute) Chronic sinusitis (Acute) Lumbar spinal stenosis (Acute) Lumbosacral radiculopathy (Acute) Lung nodule (Acute) Paresthesias (Acute) Peripheral arterial occlusive disease (Acute) Vitamin D deficiency (Acute) Asthma Cancer PROSTATE CA - 10 YEARS AGO - TREATED W/ RADIOACTIVE SEED IMPLANTS Chronic back pain Chronic bronchitis Claudication of right lower extremity Diabetes mellitus, type 2 IDDM GERD (gastroesophageal reflux disease) Hyperlipidemia Hypertension Myocardial Infarction "SILENT [place]" -- "MANY, MANY YEARS AGO" (COULD NOT RECALL) - CARDIAC CATH - DR. VEGA AT [facility] - NO STENTS/ANGIOPLASTY. Osteoarthritis Sciatica Seizure POST MENINGIOMA SURGERY - ON ORAL MED - LAST 2013 - FOLLOWS W/ DR. PERLA TIA (transient ischemic attack) hospitalized [facility] 03/03/19 Surgical History H/O sinus surgery History of cardiac cath 30 years ago? [facility] - no stents History of cataract surgery History of colonoscopy History of herniorrhaphy History of surgery REMOVAL OF MENINGIOMA (BENIGN) - [address] [facility] [address] EATON History of tooth extraction Family History Father Congestive heart failure Brother Colon cancer Stroke syndrome Social History Preferred Language: American Communication Ability: Effective Pm Head Cook Required: No Beliefs That Will Affect Care: None Current Living Situation: Spouse Other Information That Helps Us Care for You: No Feels Safe at Home: Yes Safety Concerns: Feels Safe At This Time Smoking Status: Former smoker Tobacco Type: cigarettes ; Cigarettes Per Day: QUIT 35 YEARS AGO ; Second Hand Exposure: No ; Hx Alcohol Use: Yes Alcohol type: hard liquor Hx Substance Use: No Review of Systems Review of Systems: All systems reviewed & are unremarkable except as noted in HPI & below Cardiovascular: + chest pain Physical Exam Physical Exam: GENERAL : No acute distress EYES: No icterus, gaze conjugate NOSE: No evidence of epistaxis MOUTH: No lesions or candidiasis, mucosa moist NECK: Supple LUNGS: CTA B/L, no wheezes, rales or rhonchi HEART: Regular, rate controlled ABDOMEN: Soft, NT, ND, BS Present EXTREMITIES: No LE edema, pedal pulses intact NEURO: A&OX3 Results & Data Vital Signs (Past 12 Hours) Vital Signs Temp Pulse Pulse Resp BP BP Pulse Ox 03/29/19 10:30 68 19 144/85 H 98 03/29/19 09:03 98.1 F 20 L 20 169/80 H 99 Laboratory Results 03/29/19 09:20 03/29/19 09:20 03/29/19 03/29/19 03/29/19 Range/Units 09:20 09:20 09:20 WBC 4.78 L (4.8-10.8) K/uL RBC 4.68 L (4.7-6.1) M/uL Hgb 14.9 (14.0-18.0) g/dL Hct 44.6 (42-52) % MCV 95.3 (80-100) fL MCH 31.8 (25-34) pg MCHC 33.4 (32-36) g/dL RDW Std Deviation 46.6 H (36.4-46.3) fL RDW Coeff of Shaun 13.4 (11.5-14.5) % Plt Count 241 (130-400) K/uL MPV 11.9 H (7.4-10.4) fL Immature Gran % (Auto) 0.2 % Neut % (Auto) 50.2 % Lymph % (Auto) 33.3 % [place] % (Auto) 11.9 % Eos % (Auto) 3.8 % Baso % (Auto) 0.6 % Immature Gran # (Auto) 0.01 (0.00-0.02) K/uL Neut # (Auto) 2.40 (1.4-6.5) K/uL Lymph # (Auto) 1.59 (1.2-3.4) K/uL [place] # (Auto) 0.57 (0.11-0.59) K/uL Eos # (Auto) 0.18 (0-0.5) K/uL Baso # (Auto) 0.03 (0-0.2) K/uL PT 10.4 (9.0-12.0) Seconds INR 1.0 (0.9-1.1) APTT 25.4 (21.0-31.0) Seconds PTT Ratio 0.9 Sodium 140 (136-145) mmol/L Potassium 3.8 (3.5-5.1) mmol/L Chloride 105 (98-107) mmol/L Carbon Dioxide 27 (21-32) mmol/L Anion Gap 8.0 (3-11) BUN 18 (7-18) mg/dl Creatinine 1.33 (0.6-1.4) mg/dl Est Cr Clr Drug Dosing 39.3 ml/min Est GFR ( Amer) 56.9 Est GFR (Non-Af Amer) 49.1 BUN/Creatinine Ratio 13.8 (10-20) Glucose 142 H (70-99) mg/dl Calcium 9.0 (8.5-10.1) mg/dl Total Bilirubin 0.5 (0.2-1) mg/dl AST 23 (15-37) U/L ALT 30 (12-78) U/L Alkaline Phosphatase 65 (45-117) U/L Troponin I < 0.015 (0-0.045) ng/ml Total Protein 7.3 (6.4-8.2) gm/dl Albumin 3.9 (3.4-5.0) gm/dl Globulin 3.4 (2.5-4.0) gm/dl Albumin/Globulin Ratio 1.1 (0.9-2) Diagnostic Findings CT angio chest PE protocol CT DOSE: 379.32 mGy.cm HISTORY: 83 years-old Male with ro PE. Acute chest pain with shortness of breath TECHNIQUE: Multiple CTA images of the chest were obtained after the intravenous administration of 118 ml Optiray 320. Coronal and sagittal MIPS were obtained from the axial data set and were submitted for review. All measurements were obtained according to NASCET criteria. A dose lowering technique was utilized adhering to the principles of ALARA. COMPARISON: Chest radiograph of same day, chest CT 05/18/2018 and 11/03/2017. FINDINGS: CTA: Cardiomegaly without pericardial effusion. Coronary arterial calcifications are noted. The left heart and thoracic aorta is not well opacified secondary to contrast bolus timing. Extensive calcified plaque of the thoracic aorta without aneurysm or dissection. There is tortuosity of the descending thoracic aorta. Main pulmonary artery is dilated measuring up to 3.7 cm suggestive of pulmonary arterial hypertension. Reflux of contrast into the SVC and hepatic veins. There are no pulmonary arterial tree filling defects identified to suggest pulmonary thromboembolic disease. The subsegmental branches are not well opacified. CT CHEST: Heterogeneous appearance of the thyroid. There are multiple nonspecific prominent subcarinal, paratracheal and bilateral hilar lymph nodes measuring up to 7-8 mm. No pneumothorax or pleural effusion. Moderate bilateral bronchial wall thickening. Dependent subsegmental bibasilar atelectasis. There are a few scattered punctate calcified granulomata. The previously described 2.4 cm gr oundglass opacity of the right lung apex is better seen on comparison study secondary to mild adjacent atelectasis. 6 mm solid nodule of the anterior segment right upper lobe is redemonstrated on image 198 series 4 and appears unchanged. 11 x 6 mm solid nodule of the right lower lobe on image 126 series 4 previously measured 7 x 4 mm. There are no new pulmonary nodules identified. Central airways appear patent. Thickening of the bilateral adrenal glands suggests hyperplasia. Soft tissues are unremarkable. The bones appear intact. Degenerative changes of the shoulders and spine. IMPRESSION: 1. Cardiomegaly without evidence of pulmonary thromboembolic disease. 2. Bibasilar atelectasis with moderate bilateral bronchial wall thickening suggestive of bronchitis or reactive airway disease. 3. Mildly prominent mediastinal and hilar lymph nodes, likely reactive. 4. 11 x 6 mm solid pulmonary nodule of the right lower lobe has increased in size from 05/18/2018 where it measured 7 mm. This is a suspicious finding and continued follow-up is needed to exclude a slow-growing neoplasm. 5. 2.4 cm groundglass opacity of the right lung apex redemonstrated. 6. Additional findings as above. XR chest 1V portable CLINICAL HISTORY: Chest Pain COMPARISON STUDY: Chest CT May 18, 2008 18. Chest radiograph March 03, 2019. FINDINGS: Lung volumes are normal. Linear left basilar opacity suggests atelectasis. There is no pneumothorax or pleural effusion. Mild cardiomegaly is unchanged. Mediastinal contours are normal. There is no evidence for pulmonary edema. IMPRESSION: No acute cardiopulmonary findings. No change in appearance of the chest. Code Status & VTE Plan Code Status Full code VTE Prophylaxis Plan VTE Prophylaxis will be ordered: Yes PG Care Time/CCT Total # of Minutes Spent Total Time Spent with Patient: Total time spent is greater than 50% in coordination of care (as documented) at patient's floor/unit and/or counseling patient: 60 min
[2019-03-29] MEDS ORDERED: POLYETHYLENE (MIRALAX) 17 GM PACK PO PRN (12:27)
[2019-03-29] MEDS ORDERED: ONDANSETRON INJ 2 MG/ML 2 ML VIAL IV PRN (12:27)
[2019-03-29] MEDS ORDERED: MoRPHine SULFATE 2 MG/ML CARP IV PRN (12:27)
[2019-03-29] MEDS ORDERED: HydrALAZINE HCL 20 MG/ML VIAL IV PRN (12:27)
[2019-03-29] MEDS ORDERED: NITROGLYCERIN SL 0.4 MG/TAB TAB SL PRN ×2 (12:27)
[2019-03-29] MEDS ORDERED: DOCUSATE SODIUM 100 MG CAP PO PRN (12:27)
[2019-03-29] MEDS ORDERED: ACETAMINOPHEN 325 MG TAB PO PRN (12:27)
[2019-03-29] MEDS ORDERED: ALUMINUM/MAGNESIUM SUSP 30 ML UDC PO PRN (12:27)
[2019-03-29] MEDS ORDERED: FAMOTIDINE 20 MG TAB PO PRN (12:27)
[2019-03-29] MEDS ORDERED: ZOLPIDEM TARTRATE 5 MG TAB PO PRN (12:27)
[2019-03-29] MEDS ORDERED: MAGNESIUM HYDROXIDE SUSP 30 ML UDC PO PRN (12:27)
[2019-03-29] MEDS ORDERED: GLUCAGON FOR INJ 1 MG VIAL IM PRN (13:15)
[2019-03-29] MEDS ORDERED: GLUCOSE 40% GEL 15 GM TUBE PO PRN (13:15)
[2019-03-29] MEDS ORDERED: CARBOHYDRATES FOR HYPOGLYCEMIA PO PRN (13:15)
[2019-03-29] MEDS ORDERED: DEXTROSE 50% 50 ML SYRINGE IV PRN (13:15)
[2019-03-29] MEDS ORDERED: GLUCOSE 10 TABS/TUBE PO PRN (13:15)
[2019-03-29] MEDS: HEPARIN SOD 5,000 UNIT/0.5 ML VIAL SQ SCH ×2 (13:55→21:59)
[2019-03-29] MEDS ORDERED: NON-FORMULARY MEDICATION (Cinnamon Bark [Cinnamon] 1,000 MG) PO SCH (14:00)
[2019-03-29] MEDS ORDERED: CYANOCOBALAMIN 500 MCG TABLET (VITAMIN B-12) PO SCH (14:00)
[2019-03-29] MEDS ORDERED: NON-FORMULARY MEDICATION (Coenzyme Q10 200 MG) PO SCH (14:00)
[2019-03-29] MEDS ORDERED: OMEGA-3 (PURIFIED FISH OIL) 1 GM CAP PO SCH (14:00)
[2019-03-29] MEDS ORDERED: MULTIVITAMIN TAB PO SCH (14:00)
[2019-03-29] MEDS ORDERED: CHOLECALCIFEROL 1,000 UNITS TAB PO SCH (14:00)
--- NOTE | 2019-03-29 15:56 | Emergency Department Note ---
Entered by Flex Lo acting as a scribe for Isaac Ashley History of Present Illness General Chief complaint: Chest Pain Stated complaint: CHEST PAIN, HTN Time Seen by Provider: 03/29/19 09:34 Source: patient and family () History of Present Illness Onset (ago): day(s) (2-3) Location: chest (left) Pain Consistency: + constant Maximum Pain Intensity: 2 Quality: + other (chest soreness) Associated symptoms: + headaches (mild) and + other (+high blood pressure); no cough, no nausea/vomiting and no shortness of breath The patient is an 83 year old male, with past medical history of TIA, diabetes, CAD, prostate cancer, and hypertension who presents to the Emergency Room with complaints of constant left-sided chest soreness over the last 2-3 days. The patient notes he had a carotid endarterectomy done on March 08, and the patient is wondering if his present symptoms stem from that procedure. The patient denies difficulty with breathing, and the patient notes his facial droop is residual from his prior TIA. The patient denies vomiting or coughing up blood. The patient notes a mild headache. The of the patient states the patients blood pressure has reached 215/100 over the past few days, which along with the chest pain, is what prompted the ED visit. The patient also denies recent travel. Home Medications Home Medications Medication Instructions Recorded Confirmed Type Humulin N NPH Insulin KwikPen 10 - 14 unit SUBCUT HS 02/20/18 03/29/19 History amlodipine [Norvasc] 5 mg PO BID 02/20/18 03/29/19 History cholecalciferol (vitamin D3) 2,000 unit PO DAILY@1400 02/20/18 03/29/19 History [Vitamin D3] cinnamon bark [Cinnamon] 1,000 mg PO DAILY@1400 02/20/18 03/29/19 History cyanocobalamin (vitamin B-12) 1,000 mcg PO DAILY@1400 02/20/18 03/29/19 History docusate sodium 100 mg PO HS PRN 02/20/18 03/29/19 History fluticasone propion-salmeterol 1 puff INHALATION BID 02/20/18 03/29/19 History [Advair Diskus] insulin lispro [Humalog KwikPen 3 - 5 unit SUBCUT AC 02/20/18 03/29/19 History Insulin] losartan [Cozaar] 100 mg PO QAM 02/20/18 03/29/19 History mometasone 2 spray INTRANASAL HS 02/20/18 03/29/19 History multivitamin 1 tab PO DAILY@1400 02/20/18 03/29/19 History nitroglycerin 1 tab SUBLINGUAL UD PRN 02/20/18 03/29/19 History omega 7-[id number]-fish oil [Fish Oil] 1 cap PO DAILY@1400 02/20/18 03/29/19 Histor y coenzyme Q10 100 mg capsule 200 mg PO DAILY@1400 cap 11/12/18 03/29/19 History carvedilol 6.25 mg PO BID #60 tab 03/04/19 03/29/19 Rx clopidogrel 75 mg PO QAM #30 tab 03/04/19 03/29/19 Rx famotidine [Pepcid] 40 mg PO HS PRN 03/05/19 03/29/19 History gabapentin 100 mg capsule 100 mg PO HS 90 Days #90 cap 03/17/19 03/29/19 Rx atorvastatin 80 mg tablet 80 mg PO HS #90 tab 03/19/19 03/29/19 Rx atenolol 50 mg PO QAM 03/29/19 03/29/19 History levetiracetam 250 mg PO BID 03/29/19 03/29/19 History Allergies Allergy/AdvReac Type Severity Reaction Status Date / Time levofloxacin AdvReac Intermediate DIFFICULTY Verified 03/29/19 10:55 WALKING "LEGS FROZE UP" lisinopril AdvReac Intermediate UPSET Verified 03/29/19 10:55 STOMACH AND DIZZINESS Past Med/Surg History Medical History Obstructive sleep apnea no device Bronchiectasis (Acute) Chronic sinusitis (Acute) Lumbar spinal stenosis (Acute) Lumbosacral radiculopathy (Acute) Lung nodule (Acute) Paresthesias (Acute) Peripheral arterial occlusive disease (Acute) Vitamin D deficiency (Acute) Asthma Cancer PROSTATE CA - 10 YEARS AGO - TREATED W/ RADIOACTIVE SEED IMPLANTS Chronic back pain Chronic bronchitis Claudication of right lower extremity Diabetes mellitus, type 2 IDDM GERD (gastroesophageal reflux disease) Hyperlipidemia Hypertension Myocardial Infarction "SILENT OH" -- "MANY, MANY YEARS AGO" (COULD NOT RECALL) - CARDIAC CATH - DR. DUPONT AT [facility] [place] - NO STENTS/ANGIOPLASTY. Osteoarthritis Sciatica Seizure POST MENINGIOMA SURGERY - ON ORAL MED - LAST 2013 - FOLLOWS W/ DR. PERLA TIA (transient ischemic attack) hospitalized [facility] 03/03/19 Surgical History H/O sinus surgery History of cardiac cath 30 years ago? [facility] [place] - no stents History of cataract surgery History of colonoscopy History of herniorrhaphy History of surgery REMOVAL OF MENINGIOMA (BENIGN) - 2012 [facility] DR. EATON History of tooth extraction Family History Father Congestive heart failure Brother Colon cancer Stroke syndrome Social History Preferred Language: Vietnamese Communication Ability: Effective Service Developer Required: No Beliefs That Will Affect Care: None Current Living Situation: Spouse Feels Safe at Home: Yes Smoking Status: Former smoker Tobacco Type: cigarettes ; Cigarettes Per Day: QUIT 35 YEARS AGO ; Second Hand Exposure: No ; Hx Alcohol Use: Yes Alcohol type: hard liquor Hx Substance Use: No Review of Systems See HPI for pertinent positives & negatives. and A total of 10 systems reviewed and were otherwise negative Physical Exam Vital Signs Vital Signs - 24 hr 03/29/19 09:03 03/29/19 10:30 Temperature 36.7 C Temperature Source Oral Sepsis Recent Fever Within 48 Hours No Sepsis New/Unexplained Change in Mental Status No Sepsis Action Taken by Nursing No Action Required Pulse Rate 20 L Pulse Rate [Apical] 68 Pulse Rhythm Regular Pulse Rhythm [Apical] Regular Pulse Strength Normal Respiratory Rate 20 19 Respiratory Effort / Characteristics Non-Labored Spontaneous Non-Labored Spontaneous Respiratory Depth Normal Normal Respiratory Pattern Regular Regular Blood Pressure 169/80 H Blood Pressure [Right Arm] 144/85 H Blood Pressure Mean 109 Blood Pressure Mean [Right Arm] 104 Blood Pressure Position Sitting Pulse Oximetry 99 98 Oxygen Delivery Method Room Air Room Air GENERAL: He is oriented to person, place, and time. He appears well-developed and well-nourished. He does not appear distressed. HENT: Exam performed. - Head: Normocephalic and atraumatic. - Right Ear: External ear normal. No mastoid tenderness. - Left Ear: External ear normal. No mastoid tenderness. - Mouth/Throat: The oropharynx is clear and moist. No trismus in the jaw. No dental abscesses or uvula swelling. No oropharyngeal exudate or tonsillar ab scesses. EYES: Conjunctivae and EOM are normal. Pupils are equal, round, and reactive to light. Right eye exhibits no discharge. Left eye exhibits no discharge. No scleral icterus. NECK: Normal range of motion. Neck supple. No JVD present. No spinous process tenderness present. No carotid bruit present. No rigidity. No tracheal deviation and normal range of motion present. No Brudzinski's sign and no Kernig's sign noted. Well-healing scar over the left lateral neck. No discharge or bleeding. CV: Normal rate, regular rhythm, normal heart sounds and intact distal pulses. There is no peripheral edema. Palpable radial pulses bue. PULM/CHEST: Effort normal and breath sounds normal. No respiratory distress. No stridor. He has no wheezes. He has no rales. - Chest Wall: He exhibits no tenderness. ABD: The abdomen is soft. Bowel sounds are normal. He has no distension. No mass is present. There is no tenderness. There is no rebound, no guarding, no Zazueta's sign and no tenderness at McBurney's point. Rovsig negative. MUSC/SKEL: Normal range of motion. There is no peripheral edema, tenderness or deformity. LYMPH: No cervical adenopathy. NEURO: He is alert and oriented to person, place, and time. He has normal strength. Right sided facial droop, dysarthria on baseline. Coordination and g ait normal. GCS eye subscore is 4. GCS verbal subscore is 5. GCS motor subscore is 6. Cerebellar tests wnl. SKIN: Skin is warm and dry. He is not diaphoretic. PSYCH: He has a normal mood and affect. Behavior is normal. Judgment and thought content normal. Course 0943: Past medical records reviewed. The patient was evaluated in room B7. A complete history and physical exam was performed. 1114: The patient's vital signs are stable and his labs and imaging are normal. The patient is a high risk for ACS and will be admitted for chest pain work-up. I discussed the patient's case with Dr. Jean-Hospitalist [facility] who will further evaluate the patient. Consultations Consultation #1: The patient's vital signs are stable and his labs and imaging are normal. The patient is a high risk for ACS and will be admitted for chest pain work-up. I [facility] the [facility] who will further evaluate the patient. Time: 11:14 Administered Medications Cyanocobalamin (Vitamin B-12) 1,000 mcg PO DAILY@1400 INNA Stop: 04/28/19 13:59 Last Admin: 03/29/19 13:55 Dose: 1,000 mcg Documented by: [id number] Fish Oil ([place]-3 (Purified Fish Oil)) 1 gm PO DAILY@1400 INNA Stop: 04/28/19 13:59 Last Admin: 03/29/19 13:55 Dose: 1 gm Documented by: [id number] Heparin Sodium (Porcine) (Heparin Sodium (Porcine)) 5,000 units SQ Q8 INNA Stop: 04/28/19 13:59 Last Admin: 03/29/19 13:55 Dose: 5,000 units Documented by: [id number] Cosigned by: [id number] Multivitamins (Multivitamin Tab) 1 tab PO DAILY@1400 INNA Stop: 04/28/19 13:59 Last Admin: 03/29/19 13:55 Dose: 1 tab Documented by: [id number] Vitamin D (Vitamin D3) 2,000 units PO DAILY@1400 [facility]NA Stop: 04/28/19 13:59 Last Admin: 03/29/19 13:55 Dose: 2,000 units Documented by: [id number] Discontinued Medications Ioversol (Optiray 320 125ml) 118 ml IV ONCE PRN PRN Reason: Interaction Checking Stop: 04/02/19 10:05 Last Admin: 03/29/19 10:08 Dose: 118 ml Documented by: [id number] Medical Decision Making Medical Records Attestation: I reviewed the patient's medical records. Home Medications Current Medication List: was personally reviewed by me Laboratory Data Attestation: I reviewed the patient's lab results. Result diagrams: 03/29/19 09:20 03/29/19 09:20 Lab Results 03/29/19 03/29/19 03/29/19 Range/Units 09:20 09:20 09:20 WBC 4.78 L (4.8-10.8) K/uL RBC 4.68 L (4.7-6.1) M/uL Hgb 14.9 (14.0-18.0) g/dL Hct 44.6 (42-52) % MCV 95.3 (80-100) fL MCH 31.8 (25-34) pg MCHC 33.4 (32-36) g/dL RDW Std Deviation 46.6 H (36.4-46.3) fL RDW Coeff of Shaun 13.4 (11.5-14.5) % Plt Count 241 (130-400) K/uL MPV 11.9 H (7.4-10.4) fL Immature Gran % (Auto) 0.2 % Neut % (Auto) 50.2 % Lymph % (Auto) 33.3 % Craven % (Auto) 11.9 % Eos % (Auto) 3.8 % Baso % (Auto) 0.6 % Immature Gran # (Auto) 0.01 (0.00-0.02) K/uL Neut # (Auto) 2.40 (1.4-6.5) K/uL Lymph # (Auto) 1.59 (1.2-3.4) K/uL Craven # (Auto) 0.57 (0.11-0.59) K/uL Eos # (Auto) 0.18 (0-0.5) K/uL Baso # (Auto) 0.03 (0-0.2) K/uL PT 10.4 (9.0-12.0) Seconds INR 1.0 (0.9-1.1) APTT 25.4 (21.0-31.0) Seconds PTT Ratio 0.9 Sodium 140 (136-145) mmol/L Potassium 3.8 (3.5-5.1) mmol/L Chloride 105 (98-107) mmol/L Carbon Dioxide 27 (21-32) mmol/L Anion Gap 8.0 (3-11) BUN 18 (7-18) mg/dl Creatinine 1.33 (0.6-1.4) mg/dl Est Cr Clr Drug Dosing 39.3 ml/min Est GFR ( Amer) 56.9 Est GFR (Non-Af Amer) 49.1 BUN/Creatinine Ratio 13.8 (10-20) Glucose 142 H (70-99) mg/dl Calcium 9.0 (8.5-10.1) mg/dl Total Bilirubin 0.5 (0.2-1) mg/dl AST 23 (15-37) U/L ALT 30 (12-78) U/L Alkaline Phosphatase 65 (45-117) U/L Troponin I < 0.015 (0-0.045) ng/ml Total Protein 7.3 (6.4-8.2) gm/dl Albumin 3.9 (3.4-5.0) gm/dl Globulin 3.4 (2.5-4.0) gm/dl Albumin/Globulin Ratio 1.1 (0.9-2) Imaging Data Radiologist's Impression: Radiology results as stated below per my review and the radiologist's interpretation: XR chest 1V portable CLINICAL HISTORY: Chest Pain COMPARISON STUDY: Chest CT May 18, 2008. Chest radiograph March 03, 2019. FINDINGS: Lung volumes are normal. Linear left basilar opacity suggests atelectasis. There is no pneumothorax or pleural effusion. Mild cardiomegaly is unchanged. Mediastinal contours are normal. There is no evidence for pulmonary edema. IMPRESSION: No acute cardiopulmonary findings. No change in appearance of the chest. Electronically signed by: Pierre Alexander M.D. 03/29/2019 9:[address] angio chest PE protocol CT DOSE: 379.32 mGy.cm HISTORY: 83 years-old Male with ro PE. Acute chest pain with shortness of breath TECHNIQUE: Multiple CTA images of the chest were obtained after the intravenous administration of 118 ml Optiray 320. Coronal and sagittal MIPS were obtained from the axial data set and were submitted for review. All measurements were obtained according to NASCET criteria. A dose lowering technique was utilized adhering to the principles of ALARA. COMPARISON: Chest radiograph of same day, chest CT 05/18/2018 and 11/03/2017. FINDINGS: CTA: Cardiomegaly without pericardial effusion. Coronary arterial calcifications are noted. The left heart and thoracic aorta is not well opacified secondary to contrast bolus timing. Extensive calcified plaque of the thoracic aorta without aneurysm or dissection. There is tortuosity of the descending thoracic aorta. Main pulmonary artery is dilated measuring up to 3.7 cm suggestive of pulmonary arterial hypertension. Reflux of contrast into the SVC and hepatic veins. There are no pulmonary arterial tree filling defects identified to suggest pulmonary thromboembolic disease. The subsegmental branches are not well opacified. CT CHEST: Heterogeneous appearance of the thyroid. There are multiple nonspecific prominent subcarinal, paratracheal and bilateral hilar lymph nodes measuring up to 7-8 mm. No pneumothorax or pleural effusion. Moderate bilateral bronchial wall thickening. Dependent subsegmental bibasilar atelectasis. There are a few scattered punctate calcified granulomata. The previously described 2.4 cm groundglass opacity of the right lung apex is better seen on comparison study secondary to mild adjacent atelectasis. 6 mm solid nodule of the anterior segment right upper lobe is redemonstrated on image 198 series 4 and appears unchanged. 11 x 6 mm solid nodule of the right lower lobe on image 126 series 4 previously measured 7 x 4 mm. There are no new pulmonary nodules identified. Central airways appear patent. Thickening of the bilateral adrenal glands suggests hyperplasia. Soft tissues are unremarkable. The bones appear intact. Degenerative changes of the shoulders and spine. IMPRESSION: 1. Cardiomegaly without evidence of pulmonary thromboembolic disease. 2. Bibasilar atelectasis with moderate bilateral bronchial wall thickening suggestive of bronchitis or reactive airway disease. 3. Mildly prominent mediastinal and hilar lymph nodes, likely reactive. 4. 11 x 6 mm solid pulmonary nodule of the right lower lobe has increased in size from 05/18/2018 where it measured 7 mm. This is a suspicious finding and continued follow-up is needed to exclude a slow-growing neoplasm. 5. 2.4 cm groundglass opacity of the right lung apex redemonstrated. 6. Additional findings as above. Please refer to below summary of Fleischner criteria recommendations for follow- up of incidental CT nodules (Boy Drake, Guidelines for management of small pulmonary nodules detected on CT scans: A statement from the Fleischner Society, Radiology 237: [phone].) SOLID NODULES Multiple nodules size: <6 mm * Low risk patients: no routine follow-up * high risk patients: optional CT at 12 months Multiple nodules size: 6-8 mm * Low risk patients: follow-up at 3-6 months, then consider further follow-up at 18-24 months * high risk patients: follow-up at 3-6 months, then at 18-24 months if no change Multiple nodules size: >8 mm * Low risk patients: follow-up at 3-6 months, then consider further follow-up at 18-24 months * high risk patients: follow-up at 3-6 months, then at 18-24 months if no change Note: newly detected indeterminate nodule in persons 35 years of age or older. * Low risk patients: minimal or absent history of smoking and/or other known risk factors * high risk patients: history of smoking or of other known risk factors (e.g. first degree relative with lung cancer, or exposure to asbestos, radon, uranium) * if a nodule up to 8 mm is partly solid or is ground glass further follow-up is required after 24 months to exclude possible slow growing adenocarcinoma (IVELISSE) SUBSOLID NODULES Solitary pure ground-glass nodule * nodule size <6 mm - no CT follow-up required * nodule size >=6 mm - follow-up CT at 6-12 months, then every 2 years until 5 years The above report was generated using voice recognition software. It may contain grammatical, syntax or spelling errors. Electronically signed by: Noel Lucas M.D. 03/29/2019 10:59 AM ECG Data Attestation: I personally reviewed and interpreted this ECG as follows: Indication: chest pain Rate (beats per minute): 66 Rhythm: sinus rhythm Findings: + other (NJ 262; QR 156; QTC 444), + 1st degree AV block and + RBBB; no ST depression and no ST elevation Comparison ECG Date: from (03/03/19) Change: no significant change Blood Pressure Blood Pressure Findings: Elevated blood pressure Blood Pressure Disposition: further management by hospitalist MDM Narrative The patient's vital signs are stable and his labs and imaging are normal. The patient is a high risk for ACS and will be admitted for chest pain work-up. I discussed the patient's case with Dr. Jean-Hospitalist [facility] who will further evaluate the patient. Impression & Plan Chest pain Discharge Plan Visit Data *Final* Discharge Date/Time: 03/29/19 12:03 Chief Complaint: Chest Pain Stated Complaint: CHEST PAIN, HTN ED Provider: Isaac Ashley Discharge Problem: Chest pain Patient Disposition: Being Evaluated by Hospitalist Discharge Instructions Interventions: ED Discharge Assessment Last Done: 03/29/19 12:03 Discharge Problem: Chest pain Qualifiers: Chest pain type: unspecified Qualified Code(s): R07.9 - Chest pain, unspecified The scribe's documentation has been prepared under my direction and personally reviewed by me in its entirety. I confirm that the note above accurately reflects all work, treatment, procedures, and medical decision making performed by me.
[2019-03-29] MEDS: INSULIN ASPART 100 UNITS/ML 3 ML PEN SC SCH ×2 (16:53→21:58)
[2019-03-29] MEDS: AMLODIPINE BESYLATE 5 MG TAB PO SCH (19:50)
[2019-03-29] MEDS: levETIRAcetam 250 MG TAB PO SCH (19:52)
[2019-03-29] MEDS: FLUTICASONE/SALMETEROL 100/50 (ADVAIR) 14 PUFF/1 INHALER INH SCH (19:52)
[2019-03-29] MEDS ORDERED: ATORVASTATIN 40 MG TAB PO SCH (21:00)
[2019-03-29] MEDS ORDERED: GABAPENTIN 100 MG CAP PO SCH (21:00)
[2019-03-29] MEDS ORDERED: CARVEDILOL 6.25 MG TAB PO SCH (21:00)
[2019-03-29] MEDS ORDERED: FLUTICASONE PROPIONATE NA SPR 16 GM BTL SCH (21:00)
[2019-03-30 03:49] VITALS: TEMP 97.5
[2019-03-30] MEDS: HEPARIN SOD 5,000 UNIT/0.5 ML VIAL SQ SCH (06:13)
[2019-03-30] MEDS: INSULIN ASPART 100 UNITS/ML 3 ML PEN SC SCH (08:16)
[2019-03-30] MEDS ORDERED: LOSARTAN POTASSIUM 50 MG TAB PO SCH (09:00)
[2019-03-30] MEDS ORDERED: CLOPIDOGREL BISULFATE 75 MG TAB PO SCH (09:00)
[2019-03-30] MEDS ORDERED: ATENOLOL 50 MG TABLET PO SCH (09:00)
[2019-03-30] MEDS ORDERED: ASPIRIN 325 MG ECTAB PO SCH (09:00)
[2019-03-30 09:19] VITALS: O2SAT 92
[2019-03-30] MEDS: FLUTICASONE/SALMETEROL 100/50 (ADVAIR) 14 PUFF/1 INHALER INH SCH (09:23)
[2019-03-30] MEDS: levETIRAcetam 250 MG TAB PO SCH (09:26)
[2019-03-30] MEDS ORDERED: CARVEDILOL 12.5 MG TAB PO ONE (09:26)
[2019-03-30] MEDS: AMLODIPINE BESYLATE 5 MG TAB PO SCH (09:28)
[2019-03-30 09:46] VITALS: BP 185/101
[2019-03-30 09:49] VITALS: PULSE 86
--- NOTE | 2019-03-30 15:33 | Discharge Summary ---
Date of Service March 30, 2019 Admission HPI Per Admitting Provider The patient is 83 years old male who is complaining of left-sided chest pain for last 3 days. He complains of intermittent left-sided chest pain, no significant relieving or precipitating factor; he rates it as 2-3 out of 10 intensity. No radiation to the left shoulder, jaw or the neck. His blood pressure also has been running high for last 3 days. No syncope /no dizziness/ no palpitations/no dyspnea. He had a stress test 2 years back by his communications attendant which was negative according to the patient and family. He will be admitted under observation for further evaluation and management. The first set of cardiac enzymes is negative. Currently he is chest pain-free. The patient recently had left carotid endarterectomy on 12/01/2018 Principal Diagnosis chest pain Discharge Exam Constitutional WD/WN, vitals as above Eyes PERRL, conjunctivae normal, anicteric sclerae ENMT external ear and nose normal, oropharynx normal Neck trachea midline, no thyromegaly Respiratory normal respiratory effort, lungs clear to auscultation Cardiovascular RRR, no murmur, no edema Gastrointestinal (Abdomen) normal bowel sounds, soft, nontender, no hepatosplenomegaly Musculoskeletal no cyanosis or clubbing, extremities motor strength 5/5 Skin no rashes, warm and dry Neurologic patellar DTR's 2+ bilat, sensation intact and PERRL, EOMI, accommodation nl, no face palsy, no dysarthria Psychiatric A+Ox3, euthymic affect Lymphatic no cervical or axillary lymphadenopathy Discharge Data Allergies Allergy/AdvReac Type Severity Reaction Status Date / Time levofloxacin AdvReac Intermediate DIFFICULTY Verified 03/29/19 10:55 WALKING "LEGS FROZE UP" lisinopril AdvReac Intermediate UPSET Verified 03/29/19 10:55 STOMACH AND DIZZINESS Consultations 03/29/19 11:15 ED Decision to Admit Stat Ordered Studies 03/29/19 09:49 CT angio chest PE protocol Stat Hospital Course (1) Chest pain: troponin negative x 3 sets no changes on echocardiogram no ischemic changes on EKG d/w Dr. Vega, his communications attendant, he recommends increasing Coreg can d/c to home with PCP follow up no need for stress test at this time (2) Uncontrolled hypertension: continue Norvasc and Cozaar increase Coreg to 12.5mg BID follow up with PCP next week for BP check (3) Diabetes: Novolog SS no hypoglycemic episodes (4) Hyperlipidemia: Continue statins (5) Bronchitis: No sputum or fever. No need for antibiotics. (6) Seizure: h/o seizures Continue home medications-Keppra. (7) Prostate cancer: Stable. (8) CAD (coronary artery disease): (9) H/O brain surgery: (10) Lung nodule: Patient advised to follow with residential advisor as outpatient. he follows with Dr. Mulligan for this (11) History of left-sided carotid endarterectomy: Postoperative wound healing well. Continue Plavix. Add subcu heparin for DVT prophylaxis. Total Time Total Time Spent Total Time Spent (In Minutes): 25 minutes Total Time Includes: Examination of the Patient, Discharge Planning, Medication Reconciliation and Communication With Other Providers Discharge Plan Discharge Items Patient Disposition: Home - Self-Care Reason For Visit: CHEST PAIN, HTN Discharge Diagnosis: Chest pain, atypical, non cardiac right lower lobe lung nodule Condition on Discharge: Good Goals: improve control of blood pressure follow up with Dr. Mulligan for lung nodule, not urgent Activity: Resume your previous activity Non-emergency contact: Primary Care Provider, Hardware Assembler and Weight Clerk Call non-emergency contact if: you have any medication questions, your symptoms worsen and you have a fever Follow-up/Referrals: Max Storm [Primary Care Provider] - Diet: Carb Consistent or DM2 and Heart Healthy Addtl Attending Provider Instructions: Medications: - CARVEDILOL: increased from 6.125 to 12.5mg twice a day, you received a dose this morning, next dose will be this evening - ATENOLOL: removed from list as you are not taking this Chest pain: no evidence of acute heart attack or even cardiac ischemia troponin level was normal x 3 sets and no ischemic changes on EKG CT angiogram of the chest was negative for pulmonary embolism Pulmonary nodule: slightly increased in size from 7mm to 11mm at widest diameter recommend that you follow up with Dr. Mulligan in the next 4-6 weeks or sooner if possible, but this is not urgent it has taken almost a year to increase from 7mm to 11m FOLLOW UP - call for appt with Dr. Storm within a week for blood pressure check since Coreg was increased Pending Studies at Discharge: No Stand-Alone Forms: My [facility], Smoking Cessation Medications and DC Order Prescriptions: New carvedilol 12.5 mg tablet 12.5 mg PO BID Qty: 60 RF: 1 Continued gabapentin 100 mg capsule 100 mg PO HS 90 Days Qty: 90 RF: 1 atorvastatin 80 mg tablet 80 mg PO HS Qty: 90 RF: 3 coenzyme Q10 100 mg capsule 200 mg PO DAILY@1400 RF: 0 famotidine [Pepcid] 40 mg Tablet 40 mg PO HS PRN (Reason: gerd) RF: 0 levetiracetam 250 mg tablet 250 mg PO BID RF: 0 multivitamin Tablet 1 tab PO DAILY@1400 RF: 0 amlodipine [Norvasc] 5 mg Tablet 5 mg PO BID RF: 0 nitroglycerin 0.4 mg Tablet, Sublingual 1 tab Sublingual UD PRN (Reason: Chest Pain) RF: 0 docusate sodium 100 mg Capsule 100 mg PO HS PRN (Reason: Constipation) RF: 0 mometasone 50 mcg/actuation [place],Non-Aerosol 2 spray INTRANASAL HS RF: 0 fluticasone propion-salmeterol [Advair Diskus] 100-50 mcg/dose Blister With Device 1 puff INHALATION BID RF: 0 losartan [Cozaar] 100 mg Tablet 100 mg PO QAM RF: 0 insulin lispro [Humalog KwikPen Insulin] 100 unit/mL Insulin Pen 3 - 5 unit SUBCUT AC RF: 0 Humulin N NPH Insulin KwikPen 100 unit/mL (3 mL) Insulin Pen 10 - 14 unit SUBCUT HS RF: 0 cinnamon bark [Cinnamon] 500 mg Capsule 1,000 mg PO DAILY@1400 RF: 0 cholecalciferol (vitamin D3) [Vitamin D3] 2,000 unit Capsule 2,000 unit PO DAILY@1400 RF: 0 omega 3-buf-mof-fish oil [Fish Oil] 1,000 mg (120 mg-180 mg) Capsule 1 cap PO DAILY@1400 RF: 0 cyanocobalamin (vitamin B-12) 1,000 mcg Capsule 1,000 mcg PO DAILY@1400 RF: 0 clopidogrel 75 mg Tablet 75 mg PO QAM Qty: 30 RF: 0 Discontinued atenolol 50 mg tablet 50 mg PO QAM RF: 0 carvedilol 6.25 mg Tablet 6.25 mg PO BID Qty: 60 RF: 0 Discharge Orders: Discharge Order (Routine); Ordered 10/29/19 Ordered By: Darwin Wiseman Admission Data Admit Date/Time: 03/29/19 11:41 Attending Provider: Darwin Wiseman Admit Provider: Devin Jean Primary Care Provider: Max Storm Other Providers: Devin Jean Other Interventions: Discharge Summary Assessment (RN) Last Done: 03/30/19 09:47 DC Date/Time DO NOT enter until pt leaves facility: 03/30/19 10:01
== END 2019-03-30 10:01 | disposition home or self-care (01) ==
LOC: ED 09:00 → 2E 09:00 → SUATTDRO 11:37 → 2E 12:03
DX: I10 Essential (primary) hypertension; I25.10 Atherosclerotic heart disease of native coronary artery without angina pectoris; R91.1 Solitary pulmonary nodule; M54.16 Radiculopathy, lumbar region; E55.9 Vitamin D deficiency, unspecified; E78.5 Hyperlipidemia, unspecified; Z86.73 Personal history of transient ischemic attack (TIA), and cerebral infarction without residual deficits; R07.89 Other chest pain; Z79.4 Long term (current) use of insulin; Z87.891 Personal history of nicotine dependence; Z85.46 Personal history of malignant neoplasm of prostate; E11.9 Type 2 diabetes mellitus without complications; Z98.890 Other specified postprocedural states; M48.061 Spinal stenosis, lumbar region without neurogenic claudication; Z88.8 Allergy status to other drugs, medicaments and biological substances; Z79.899 Other long term (current) drug therapy

== ENCOUNTER 2021-08-23 08:20 | Observation (INO) ==
--- NOTE | 2021-08-15 15:10 | Anesthesiology Consultation ---
Date of Service August 15, 2021 Assessment & Plan (1) Encounter for pre-operative examination: Chart Review Chart Review: Acceptable Risk for Surgery (pending preop Covid testing results ) and Patient NOT seen in Pre Admission Testing - Check BSG AM DOS Per nursing assessment 08/15/2021, patient denies any recent travel. No known Covid infection in the past 90 days. Patient wears mask when required. Patient is fully vaccinated for Covid. No known Covid positive exposures or Covid related symptoms. Preop Covid testing scheduled 08/21/21= will await results Patient last seen by cardiology 08/02/2021 = patient seen for preoperative evaluation prior to left inguinal hernia repair. Patient has 24 steps that he can climb normally. CADstatus post cardiac catheterization in 1997 showing total occlusion of RCA with collaterals. Chronic A. fib status post watchman procedure August 2020. Status post left CEA in 2018 secondary to CVA. "He has a moderate risk clinical predictors. He is undergoing a low to moderate risk surgery and his functional capacity is better than 4 METS. His EKG today reveals a right bundle branch block with atrial fibrillation. No acute ST-T changes. I believe his risk of cardiac complications in the range of 3%... He should remain on aspirin in the perioperative.. He is no longer on Plavix for anticoagulation." LV function is normal but would be judicious with fluids in the perioperative. Seen by pulmonology 07/04/21= adenocarcinoma of the lungstatus post right lower lobe lobectomy. Follow-up CT scan was negative. Remote history of asthmaon inhalers and doing well. Multiple lung nodules on CTwe will continue to monitor. Follow-up in 6 months. Last seen by neurology 05/18/2021 = history of right frontal meningioma resection. Will need follow-up brain MRI completed this summer. Stable seizure disorder. Continue medications. Follow-up in 8 months. ARI 01/10/2021 = done under MAC. No anesthesia issues noted per anesthesia record. History Surgery Operation Date: 08/23/21 10:20 Proposed Procedures p Open Left Inguinal Hernia Repair with Mesh - Luis Cramer MD, FACS Height/Weight Height: 5 ft 7 in Weight: 75.75 kg Allergies Allergy/AdvReac Type Severity Reaction Status Date / Time levofloxacin AdvReac Unknown DIFFICULTY Verified 08/15/21 10:50 WALKING "LEGS FROZE UP" lisinopril AdvReac Unknown UPSET Verified 08/15/21 10:50 STOMACH AND DIZZINESS Medications Home Medications Medication Instructions Recorded Confirmed Last Taken cholecalciferol (vitamin D3) 50 2,000 unit PO QDL 02/20/18 08/15/21 07/23/20 mcg (2,000 unit) capsule (Vitamin D3) cyanocobalamin (vitamin B-12) 1,000 mcg PO QAM 02/20/18 08/15/21 07/23/20 1,000 mcg capsule multivitamin 1 tab PO QDL 02/20/18 08/15/21 07/23/20 nitroglycerin 0.4 mg sublingual 1 tab SUBLINGUAL UD PRN 02/20/18 08/15/21 Unknown tablet carvedilol 12.5 mg tablet 12.5 mg PO BID #60 tab 03/30/19 08/15/21 07/23/20 famotidine 40 mg tablet (Pepcid) 40 mg PO UD PRN 04/02/19 08/15/21 Unknown amlodipine 5 mg tablet (Norvasc) 5 mg PO BID #180 tab 04/13/19 08/15/21 07/23/20 aspirin 81 mg tablet,delayed 81 mg PO QAM 02/10/20 08/15/21 07/23/20 release blood-glucose sensor (Dexcom G6 #3 ea 05/19/20 08/07/21 Unknown Sensor) blood-glucose transmitter (Dexcom #1 ea 05/19/20 08/07/21 Unknown G6 Transmitter) coenzyme Q10 100 mg capsule 100 mg PO QDL 07/23/20 08/15/21 07/23/20 (CoQ-10) docusate sodium 250 mg capsule 250 mg PO HS 07/23/20 08/15/21 07/22/20 fluticasone 250 mcg-salmeterol 50 1 inh INH QAM 10/25/20 08/15/21 Unknown mcg/dose blistr powdr for inhalation (Advair Diskus) acetaminophen 500 mg capsule 500 mg PO Q6H PRN 01/08/21 08/15/21 Unknown valsartan 320 mg tablet 320 mg PO QPM 01/08/21 08/15/21 Unknown hydralazine 10 mg tablet 10 mg PO TID 05/18/21 08/15/21 Unknown levetiracetam 1,000 mg tablet 1,000 mg PO BID 90 Days #180 tab 08/01/21 08/15/21 Unknown (Keppra) insulin NPH isoph U-100 human 100 10 unit SUBCUT HS ml 08/07/21 08/15/21 Unknown unit/mL (3 mL) subcutaneous pen (Humulin N NPH U-100 Insulin KwikPen) insulin lispro 100 unit/mL 25 unit SUBCUT DAILY #15 ml 08/07/21 08/15/21 Unknown subcutaneous pen (Humalog KwikPen (U-100) Insulin) gabapentin 100 mg capsule 100 mg PO HS 90 Days #90 cap 08/13/21 08/15/21 Unknown atorvastatin 80 mg tablet 80 mg PO QPM 08/15/21 08/15/21 Unknown Past Medical History Medical History (Updated 08/15/21 @ 15:29 by Sophie Blackwood PA-C) Asthma Atrial fibrillation Dx ~01/2020 post-op after lobectomy at [facility]. S/p Watchman's device 09/19/2020 - Tammy d/c'ed CAD (coronary artery disease) Total occlusion of RCA with collaterals found in 1997 Carotid stenosis S/p left CEA in March 2019 Per 05/14/21 carotid doppler- no hemodynamically significant carotid stenosis to right ICA; patent left CEA with no evidence of restenosis Chronic back pain Diabetes mellitus, type 2 IDDM GERD (gastroesophageal reflux disease) Hyperlipidemia Hypertension Ischemic stroke Per most recent neuro note 10/2020, "cardioembolic stroke occurring in January 2020 after pulmonary nodule resection at [facility]. Infarct involve the left parietal and right occipital lobes, no residual neurological deficits." [place] related to a fib Lumbar spinal stenosis Lumbosacral radiculopathy Lung cancer Diagnosed December 2018, SURGICAL INTERVENTION...s/p lobectomy. Pathology c/w adenocarcinoma per [facility] records. Multiple lung nodules on CT Under observation Myocardial Infarction "SILENT [place]" -- "MANY, MANY YEARS AGO" (COULD NOT RECALL) - CARDIAC CATH - NO STENTS/ANGIOPLASTY. Obstructive sleep apnea No device Presence of Watchman left atrial appendage closure device (~08/2020) [facility]. follows with Dr. Gardiner (cardiology [facility]) Prostate cancer 10 YEARS AGO - TREATED W/ BRACHYTHERAPY Sciatica Seizure POST MENINGIOMA SURGERY - LAST SEIZURE 2013 - FOLLOWS W/ DR. PERLA. Stable on Keppra per most recent note 05/18/21 Shoulder problem RIGHT, ROTATOR CUFF - CORTISONE INJECTION MOST RECENT LAST WEEK TIA (transient ischemic attack) Hospitalized [facility] 03/03/19 Past Family History Family History Father Congestive heart failure Heart disease Family history of diabetes mellitus Brother Colon cancer Hearing loss Stroke syndrome Cancer Hypertension Stroke Mother Heart disease Stroke Other No family history of allergies No family history of bleeding disorder Denies family history of Asthma Past Surgical History Surgical History H/O sinus surgery History of brachytherapy History of cardiac cath 1997 [facility] - no stents History of cataract surgery BILAT History of colonoscopy History of herniorrhaphy History of left-sided carotid endarterectomy History of lobectomy of lung (~01/2020) robot assisted lower right lobectomy. Path showed infiltrating adenocarcinoma. History of surgery REMOVAL OF MENINGIOMA (BENIGN) - [address] [facility] [address] EATON History of tonsillectomy and adenoidectomy History of tooth extraction History of transesophageal echocardiography (ARI) 10/2020 [facility] Hx of hemorrhoidectomy Social History Smoking Status: Former smoker tobacco type: cigarettes and pipe Do You Dip or Chew Tobacco: No Smoking End Date: 50 YR AGO Hx Alcohol Use: Yes Alcohol type: hard liquor alcohol intake frequency: 0-2 drinks per day Alcohol Intake Frequency Comment: A COUPLE DRINKS BEFORE SUPPER Hx Substance Use: No substance use type: does not use Lab Results Anesthesia Preop Results Results Anesthesia Widget: WBC 12.00 K/uL (4.8-10.8) H 08/15/21 Hgb 15.3 g/dL (14.0-18.0) 08/15/21 Hct 45.0 % (42-52) 08/15/21 Plt 257 K/uL (130-400) 08/15/21 Na 138 mmol/L (136-145) 08/15/21 K 4.1 mmol/L (3.5-5.1) 08/15/21 Cl 104 mmol/L (98-107) 08/15/21 CO2 28 mmol/L (21-32) 08/15/21 BUN 22 mg/dl (6-23) 08/15/21 Creat 1.03 mg/dl (0.6-1.4) 08/15/21 Glucose Level 164 mg/dl (70-99(Fasting)) H 08/15/21 Lab Comments: Surgeon's office informed of mild leukocytosis Testing Electrocardiogram Date: 08/02/21 Findings: + AFIB @ (69bpm) RBBB. Compared to EKG from September 12, 2020no significant changes found per cardio. Echocardiogram ARI Date:11/02/20 EF:50-55% LV Function:normal RWMA:+ none Other Findings:+ LVH (mild/concentric ) and + diastolic dysfunction (Type II ) Valvular Disease:+ MR (mild) Left atrium is severely dilated Spontaneous contrast in LA. Well seated Watchman device in the XAVIER. Small area of flow along the upper portion of the appendage near the Coumadin ridge confirmed by both color and pulse wave doppler. No evidence of LA thrombus. "Although the patient had a IAS procedure of his watchman procedure I did not appreciate a PFO by 2D or color doppler." AV sclerosis moderate, without significant Aortic root sclerosis/calcification ARI 01/10/2021 = Patient has XAVIER occlusion device in place. Small separation with flow in the most superior portion between the device and the Coumadin ridge by both 2D and color Doppler. No evidence of LA thrombus. LA is severely dilated. LSPV flow S<D Aortic valve sclerosis mild, without significant aortic valvular stenosis. LV is normal size. No LVH. LV wall motion is normal. Mild to moderate MR. Other Testing Carotid Doppler 05/14/2021 = no hemodynamically significant stenosis in the right ICA. Patent left carotid endarterectomy with no evidence of restenosis. Antegrade flow in both vertebral arteries. Normal flow in both subclavian arteries. Complex, calcified plaque in the bulb, right ICA, and bilateral dis marion CCA's. Compared to study performed 05/10/2020there is no significant change. Chest CT 11/27/20= Post right lower lobectomy. Slight decrease in size of small right pleural effusion. No thoracic lymphadenopathy. No evidence for tumor recurrence. No change in an indeterminate 2.8 cm groundglass right upper lobe nodule.
[~2021-08-23 08:20] MED LIST changes: -ADVIN10/60 INH; -AMLO5TAB3 PO; -ASPCH81X PO; -ATEN50TA8 PO; -ATOR-26 PO; -CHOL1000 PO; -CINN1CAP2 PO; -COEN1CAP7 PO; -CYAN10005 PO; -DOCU100C PO; -GABA-112 PO; -INSU100I2 SC; -INSU1INJ23 SC; -KPP/1000 PO; -LOSA1TAB38 PO; +LR 15ML/HR IV SCH; -MOME6000 NAE; -MULT-506 PO; -NTRGSL/4 SL; -OMEG10007 PO; -RANI150C4 PO
[2021-08-23] MEDS ORDERED: fentaNYL citrate 100 MCG/2 ML VIAL ONE (11:15)
[2021-08-23] MEDS ORDERED: BUPIVACAINE 0.5 % 5 MG/1 ML MPF 30ML VIAL ONE (12:03)
[2021-08-23] MEDS ORDERED: GELATIN SPONGE 12-7MM ONE (12:03)
--- NOTE | 2021-08-23 12:14 | History & Physical Bridge Note ---
Date of Service August 23, 2021 History & Physical Bridge Note I have examined the patient, reviewed the History & Physical and in the interval since the performance of the History & Physical I have noted the following changes of clinical significance: no changes noted pt marked all question answered called his Lizbeth at [phone] at the request of the patient tell him that we had not started surgery as that he should be worried
[2021-08-23] MEDS ORDERED: ceFAZolin 330 MG/ML 1 GM VIAL ONE (12:24)
[2021-08-23] MEDS ORDERED: ONDANSETRON INJ 2 MG/ML 2 ML VIAL ONE (12:24)
[2021-08-23] MEDS ORDERED: PROPOFOL IV EMULSION 10 MG/ML 20 ML VIAL IV ONE (12:24)
[2021-08-23] MEDS ORDERED: LIDOCAINE 2% 2 ML VIAL/AMP(20MG/ML) INFIL ONE (12:24)
[2021-08-23] MEDS ORDERED: PHENYLEPHRINE 100MCG/ML 5ML SYR ONE (12:26)
[2021-08-23] MEDS ORDERED: ceFAZolin 2000MG 2,000 MG/15 ML SYR IV ONE (12:33)
[2021-08-23] MEDS ORDERED: ePHEDrine sulfate 50 MG/ML AMP ONE (12:34)
[2021-08-23] MEDS ORDERED: ROCURONIUM BROMIDE 10 MG/ML 5 ML VIAL IV ONE (12:36)
[2021-08-23] MEDS ORDERED: NEOSTIGMINE METHYLSULFATE 1 MG/ML 10ML VIAL ONE (12:56)
[2021-08-23] MEDS ORDERED: GLYCOPYRROLATE 0.2 MG/ML VIAL ONE (12:56)
[2021-08-23] MEDS ORDERED: oxyCODONE/ACETAMINOPHEN 5mg/325mg TAB PO PRN ×2 (13:08)
[2021-08-23] MEDS ORDERED: MoRPHine SULFATE 4 MG/ML 1 ML CARP\\VIAL IV PRN (13:08)
[2021-08-23] MEDS ORDERED: ONDANSETRON INJ 2 MG/ML 2 ML VIAL IV PRN ×2 (13:08→14:02)
[2021-08-23] MEDS ORDERED: MoRPHine SULFATE 2 MG/ML CARP IV PRN (13:08)
--- NOTE | 2021-08-23 13:14 | Operative Report ---
Post Operative Report Pre & Post Diagnosis Operation Date: 08/23/21 10:20 Pre-Op Diagnosis: Left Inguinal Hernia Post-Op Diagnosis: Left Inguinal Hernia indirect and lipoma the cord Patient was brought into the operating theater general trach anesthesia left lower quadrant was prepped byline scrub a solution properly draped systemic antibiotics on board a timeout was had patient identified due to his anatomy like to make a low transverse incision above the inguinal ligament made an incision approximately 7 cm long deepened through subcutaneous tissue ligating some prominent vessels onto the external fascia self retainer was inserted more local was used underneath the fascia which was opened along the course of its fibers to the external ring we elevated the cord and structure patient has significant amount of fatty tissue and also a large indirect hernia that we freed from the cord structures open it inserted a finger and dissected all the fatty tissue and cord away from it resected the hernia sac at the base after ligated with 2-0 silk the fatty tissue was then taken off ligating at its base and returned around the indirect ring we used some 3-0 silk interrupted suture lateral to the internal ring to reapproximate his external fascia and we elected to do a Bassini repair approximating the transversalis fascia to the shelving portion of the inguinal ligament with 2-0 interrupted silk suture reconstructed the internal ring the could only accommodate the tip of a hemostat the area was checked for stasis appears satisfactory we then closed the fascia with 3-0 interrupted silk suture 2-0 Vicryl subcutaneous j luis for skin edges dressing was applied procedure was tolerated well by the patient estimate blood loss 5 cc Addendum B Car osorio was present throughout the procedure and helped with retraction exposure and wound closure Addendum both with his Lizbeth at [phone] We use SDI-Solution voice activated for dictation I identified the patient and participated in the time-out.: Yes Procedure Operation Date: 08/23/21 10:20 Actual Procedures p Open Left Inguinal Hernia Bassini Repair, Lipoma of cord. (Left) - Luis Cramer MD, FACS Surgeon Luis Cramer MD, FACS Disintegrator Operator b car osorio Estimated Blood Loss 5 Findings Consistent with Post-Op Diagnosis Left indirect hernia lipoma the cord Specimens Hernia sac and lipoma the cord Indications Pain in left groin area with palpable hernia Description of Procedure merda I attest to the content of the Intraoperative Record and any orders documented therein. Any exceptions are noted below.
[2021-08-23] MEDS ORDERED: SODIUM CHLORIDE 0.9% 1000ML 1,000 ML IV SCH (13:15)
[2021-08-23] MEDS ORDERED: fentaNYL citrate 100 MCG/2 ML VIAL IV PRN (14:02)
[2021-08-23] MEDS ORDERED: ePHEDrine sulfate 50 MG/ML AMP IV PRN (14:02)
[2021-08-23] MEDS ORDERED: HYDROmorphone INJ 2 MG/ML SYR/VIAL IV PRN (14:02)
[2021-08-23] MEDS ORDERED: ATROPINE SULFATE 0.1 MG/ML 10ML SYR IV PRN (14:02)
--- NOTE | 2021-08-23 14:34 | Anesthesiology Progress Note ---
Date of Service August 23, 2021 Anesthesia Post Procedure Vital Signs Vital Signs: Temp Pulse Pulse Resp BP Pulse Ox 08/23/21 14:20 37 L 20 155/99 H 96 08/23/21 14:10 46 L 17 142/80 H 96 08/23/21 14:00 36.2 C L 59 L 20 139/86 93 08/23/21 13:50 56 L 17 139/77 97 08/23/21 13:40 55 L 16 148/89 H 97 08/23/21 13:30 66 18 147/89 H 97 08/23/21 13:20 36 C L 83 23 176/87 H 97 08/23/21 09:23 36.7 C 66 18 173/97 H 97 Pain Intensity Abdomen: Pain Intensity: 2 Transfer of Care Handoff Completed per policy Notes Mental Status: alert / awake / arousable and participated in evaluation Patient Amnestic to Procedure: Yes Nausea / Vomiting: adequately controlled Pain: adequately controlled Airway Patency, RR, SpO2: stable & adequate BP & HR: stable & adequate Hydration State: stable & adequate Anesthetic Complications: no major complications apparent and Pt Satisfied with anesthetic care
[2021-08-23] MEDS ORDERED: NITROGLYCERIN SL 0.4 MG/TAB TAB SL PRN (15:14)
[2021-08-23] MEDS ORDERED: GLUCOSE 40% GEL 15 GM TUBE PO PRN (15:14)
[2021-08-23] MEDS ORDERED: CARBOHYDRATES FOR HYPOGLYCEMIA PO PRN (15:14)
[2021-08-23] MEDS ORDERED: GLUCAGON FOR INJ 1 MG VIAL SQ PRN (15:14)
[2021-08-23] MEDS ORDERED: GLUCOSE 10 TABS/TUBE PO PRN (15:14)
[2021-08-23] MEDS ORDERED: DEXTROSE 50% 50 ML SYRINGE IV PRN (15:14)
[2021-08-23] MEDS ORDERED: hydrALAZINE 10 MG TAB PO SCH (15:45)
[2021-08-23] MEDS: INSULIN ASPART PER UNIT SC SCH ×2 (17:12→20:37)
[2021-08-23] MEDS: hydrALAZINE 10 MG TAB PO SCH (20:29)
[2021-08-23] MEDS: carvediloL 12.5 MG TAB PO SCH (20:29)
[2021-08-23] MEDS: amLODIPine BESYLATE 5 MG TAB PO SCH (20:30)
[2021-08-23] MEDS: levETIRAcetam 500 MG TAB PO SCH (20:31)
[2021-08-23] MEDS ORDERED: GABAPENTIN 100 MG CAP PO SCH (21:00)
[2021-08-23] MEDS ORDERED: levETIRAcetam 500 MG TAB PO SCH (21:00)
[2021-08-23] MEDS ORDERED: ATORVASTATIN 40 MG TAB PO SCH (21:00)
[2021-08-23] MEDS ORDERED: VALSARTAN 80 MG TAB PO SCH (21:00)
--- NOTE | 2021-08-24 07:34 | Surgery Progress Note ---
Date of Service August 24, 2021 Assessment & Plan (1) S/P inguinal hernia repair: Plan: POD#1 open left inguinal hernia repair Patient doing well, offers no complaints Incisions c/d/i with j luis in place Tolerating diet. + Voiding. Up and out of bed Okay for discharge to home. Dispo instructrions reviewed F/u in clinic within 1 week Pt seen/examined with Dr. Cramer Admission and Anticipated Discharge Date Admission Date: August 23, 2021 Subjective Patient feeling well. He has been eating and voiding. Up and moving about. Offers no complaints. Physical Exam Physical Exam: awake/alert Gastrointestinal (Abdomen): L groin incision c/d/i, no signs of infection. j luis in place Results & Data ([facility]) Vital Signs (Past 12 Hours) Vital Signs Temp Pulse Resp BP Pulse Ox 08/24/21 03:11 36.4 C L 64 16 151/80 H 94 08/23/21 22:03 36.6 C 61 18 153/67 H 94 08/23/21 20:23 86 180/80 H PG Care Time/CCT Total # of Minutes Spent Total Time Spent with Patient: Total time spent is greater than 50% in coordination of care (as documented) at patient's floor/unit and/or counseling patient: Coding Level of Care Code None Diagnoses S/P inguinal hernia repair Z98.890; Z87.19
[2021-08-24] MEDS ORDERED: ACETAMINOPHEN 325 MG TAB PO PRN (07:39)
[2021-08-24] MEDS: carvediloL 12.5 MG TAB PO SCH (08:31)
[2021-08-24] MEDS: hydrALAZINE 10 MG TAB PO SCH (08:31)
[2021-08-24] MEDS: amLODIPine BESYLATE 5 MG TAB PO SCH (08:32)
[2021-08-24] MEDS: levETIRAcetam 500 MG TAB PO SCH (08:32)
[2021-08-24] MEDS: INSULIN ASPART PER UNIT SC SCH (08:55)
[2021-08-24] MEDS ORDERED: FLUTICASONE/VILANTEROL 100/25MCG 14 PUFFS/INHALER INH SCH (09:00)
[2021-08-24] MEDS ORDERED: ASPIRIN 81 MG ECTAB PO SCH (09:00)
== END 2021-08-24 10:34 | disposition home or self-care (01) ==
LOC: 3N 08:20 → ASU 08:20